=== PATIENT | female | born 1950 | race Caucasian/White ===

== ENCOUNTER 2019-09-22 13:22 | Inpatient (IN) | payer OTHER ==
--- NOTE | 2019-09-22 13:46 | PDOC ---
Rapid Medical Evaluation Time Seen by Provider: 09/22/19 13:41 Medical Evaluation: Allergies Allergy/AdvReac Type Severity Reaction Status Date / Time No Known Allergies Allergy Verified 09/22/19 13:40 09/22/19 13:41 Pt presents for swelling of the legs and shortness of breath for one week. She was seen by her PCP and was sent to the ER for further evaluation. Exam: 2+ pitting edema to the b/l lower extremities. Lungs CTAB Orders: labs, EKG, CXR Pt to proceed to the ER for further evaluation Discharge Disposition - Diagnosis Shortness of breath - Referrals - Patient Instructions - Post Discharge Activity
--- NOTE | 2019-09-22 15:32 | PDOC ---
History of Present Illness - General Chief Complaint: Edema Stated Complaint: SOB/LEG PAIN Time Seen by Provider: 09/22/19 13:41 History Source: Patient - History of Present Illness Initial Comments: 69F PMH MS, chronic venous insufficiency RLE sent in by PCP (Dr. Briceno) for 1 week of TRONCOSO and b/l LE edema. Edema has been a persistent issue. No sx at rest, only short of breath with activity. Denies chest pain, tightness, palpitations. Denies f/c, cough, sick contacts. Denies leg pain. Pt has no personal or family hx of VTE, no malignancies, recent surgeries, immobilization, OCP/hormone use. No cardiac hx. Poor medical f/u in recent years. Past History - Past Medical History Allergies/Adverse Reactions: Allergies Allergy/AdvReac Type Severity Reaction Status Date / Time No Known Allergies Allergy Verified 09/22/19 13:40 Home Medications: Ambulatory Orders Amantadine HCl [Amantadine] 100 mg PO HS 09/22/19 Amantadine HCl [Amantadine] 200 mg PO AM 09/22/19 Duloxetine HCl [Cymbalta] 30 mg PO DAILY 09/22/19 Solifenacin Succinate [Vesicare -] 10 mg PO DAILY 09/22/19 Glatiramer Acetate [Copaxone] 40 mg SQ 09/23/19 COPD: No Other medical history: MS - Surgical History Cholecystectomy: Yes - Psycho Social/Smoking Cessation Hx Smoking History: Never smoked Have you smoked in the past 12 months: No Information on smoking cessation initiated: No Hx Alcohol Use: No Drug/Substance Use Hx: No Review of Systems - Review of Systems Able to Perform ROS?: Yes Comments:: CONSTITUTIONAL: Denies F / C HEENT: Denies changes in vision / hearing, sore throat, rhinorrhea RESP: Endorses TRONCOSO. Denies cough CARD: Denies chest pain, palpitations GI: Denies N / V / D, abdominal pain. Endorses long standing constipation. : Denies dysuria SKIN: Denies rashes NEURO: Denies numbness, tingling, weakness MSK: Endorses edema of the legs *Physical Exam - Vital Signs Last Vital Signs Temp Pulse Resp BP Pulse Ox 97.5 F L 103 H 20 169/91 92 L 09/22/19 13:42 09/22/19 13:42 09/22/19 13:42 09/22/19 13:42 09/22/19 13:42 - Physical Exam GEN: Anxious, comfortable, NAD. AAOx3 HEENT: NC/AT. No facial asymmetry. Moist mucous membranes. Normal voice. Supple neck w/ FROM CV: S1/S2, RRR, no m/r/g LUNG: CTAB, no wheezes, crackles GI: Soft, ndnt, +BS, no guarding, no rebound. No masses. MSK: 2+ pitting edema of the b/l LE up to midshin. No calf TTP b/l. No streaking. +2 pulses b/l SKIN: Warm, dry, no rashes appreciated PSYCH: Very anxious, often off topic, but pleasant and easily redirectable. NEURO: Moving all extremities; LE weakness at baseline (2/2 MS) ED Treatment Course - LABORATORY CBC & Chemistry Diagram: 09/26/19 05:55 09/23/19 06:33 Medical Decision Making - Medical Decision Making 09/22/19 15:24 69F sent in by PCP for evaluation of 1 week b/l LE edema and TRONCOSO. 2+ pitting edema b/l, no calf TTP, lungs CTAB. Tachycardic, hypoxic. Anxious. DDx - VTE, CHF, ACS - CBC, CMP, Cardiac, BNP, D-Dimer - CXR - EKG - Duplex b/l EKG 1509 HR 98 AZ 140 QRS 100 QTc 464 NSR, right axis dev., q-waves III and aVF 09/22/19 16:35 chem reviewed trop neg BNP 4000 - admit f/u rest of labs 09/22/19 16:48 D-dimer elevated to 800s CTA 09/22/19 17:[address] Gentile regarding b/l PEs on CTA w/ possible right heart strain CTA PE Impression: Acute bilateral segmental embolism is seen as noted above. Possible right heart strain. Minimal to mild left lower lobe and bilateral lower lobe groundglass attenuation is seen which could be on the basis of acute embolism versus small airway disease. given findings on CTA - elevated BNP may be 2/2 right heart strain of PE or a separate CHF process. Pt is back in room started on NC supplemental O2 BP 150s/90s starting heparin admit tele Original EKG does show an s1q3t3. 09/22/19 18:04 No DVT on duplex 09/22/19 18:17 endorsed to MAR ADMITTED tele Discharge - Discharge Information Problems reviewed: Yes Clinical Impression/Diagnosis: Shortness of breath Pulmonary embolism Qualifiers: Pulmonary embolism type: unspecified Chronicity: acute Acute cor pulmonale presence: unspecified Qualified Code(s): I26.99 - Other pulmonary embolism without acute cor pulmonale Condition: Stable - Admission Yes - Follow up/Referral - Patient Discharge Instructions - Post Discharge Activity
--- NOTE | 2019-09-22 15:57 | PDOC ---
Attending Attestation - Resident Resident Name: Zacarias Martinez - ED Attending Attestation I have performed the following: I have examined & evaluated the patient, The case was reviewed & discussed with the resident, I agree w/resident's findings & plan - HPI HPI: 09/22/19 15:52 69-year-old female with history of MS, lost to PCP follow-up over the last few years while she was caring for her with end-stage cancer, now sent after first visit with Dr. Briceno for further evaluation of several months/1 year of progressive lower extremity swelling and now 1 week of dyspnea on exertion. Patient denies any chest pain, denies any calf pain, denies any fevers or chills or cough. No orthopnea but sleeps in a recliner at night, no smoking history, no weight loss or night sweats. - Physicial Exam PE: 09/22/19 15:53 Vitals as noted, O2 sat 94% on room air, slight tachycardia Pleasant woman seated comfortably in stretcher speaking full sentences in no acute distress No JVD Heart is regular slight tachycardia, lungs are clear without crackles or wheezes or focally decreased breath sounds Abdomen benign 3+ pitting edema bilaterally to the thighs with slight left calf tenderness, 2+ distal pulses - Medical Decision Making 09/22/19 15:54 69-year-old female sent after reinitiating PCP follow-up presenting with chronic lower extremity swelling and new dyspnea on exertion. Slight tachycardia and hypoxia but in no acute respiratory distress, bilateral leg swelling on exam. Presentation could be consistent with cardiac etiology, PE, metabolic/neoplastic process. Labs, EKG Chest x-ray. Check d-dimer Admission Heart Score/ECG Review #1 ECG reviewed & interpreted by me at: 15:09 General ECG Interpretation: Sinus Rhythm, Normal Rate (98), Normal Intervals ( qtc 464, s1qt3,), No acute ischemic changes Compared to previous ECG there are: No significant change (c/w office EKG from )
[2019-09-22 16:34] LABS: ALBUMIN 3.7 g/dl (3.4-5.0); BILIRUBIN,TOTAL 0.9 mg/dL (0.2-1); CALCIUM 9.1 mg/dL (8.5-10.1); CREATININE 0.9 mg/dL (0.55-1.3); N-TERMINAL BNP 4022.7 pg/ml (5-125); TOT PROT 6.8 g/dl (6.4-8.2)
[2019-09-22 16:54] LABS: EPI CELLS 1.7 /HPF (0-5/HPF); HYALINE CASTS 3 /lpf (0-8); URINE APPEARANCE CLEAR; URINE BACTERIA 16.2 /hpf (NEGATIVE); URINE BILIRUBIN NEGATIVE (NEGATIVE); URINE COLOR YELLOW; URINE GLUCOSE (UA) NEGATIVE (NEGATIVE); URINE KETONE NEGATIVE (NEGATIVE); URINE LEUK ESTERASE TRACE (NEGATIVE); URINE NITRITE NEGATIVE (NEGATIVE); URINE PROTEIN 1+ (NEGATIVE); URINE RBC 2 /hpf (0-4); URINE WBC 6 /hpf (0-5)
[2019-09-22 16:55] LABS: BASO % 1.3 % (0-2.0); EOS % 0.3 % (0-4.5); HEMATOCRIT 39.4 % (32.4-45.2); HEMOGLOBIN 11.6 GM/dL (10.7-15.3); LYMPH % 25.5 % (8-40); MCHC 29.3 g/dl (32.0-36.0); MEAN CELL VOLUME 64.3 fl (80-96); MEAN PLT VOLUME 8.9 fl (7.5-11.1); MONO % 7.6 % (3.8-10.2); NEUT % 65.3 % (42.8-82.8); PLATELET COUNT 178 K/MM3 (134-434); RBC 6.14 M/mm3 (3.60-5.2); RDW 20.8 % (11.6-15.6)
[2019-09-22 16:57] LABS: MCH 18.8 pg (25.7-33.7)
[2019-09-22] MEDS ORDERED: HEPARIN NA (PORCINE) 5,000 UNITS/ML 1ML VIAL IVPUSH PRN ×2 (17:57)
[2019-09-22] MEDS ORDERED: HEPARIN INFUSION - 25,000 UNITS/500 ML INFUS.BAG IVPB ONE (18:25)
[2019-09-22] MEDS ORDERED: HEPARIN NA (PORCINE) 5,000 UNITS/ML 1ML VIAL ONE (18:25)
[2019-09-22 18:36] LABS: ANISOCYTOSIS 2+; MACROCYTOSIS 1+; OVALOCYTE 1+; PLATELET ESTIMATE ADEQUATE
[2019-09-22] MEDS: HEPARIN INFUSION - 25,000 UNITS/500 ML INFUS.BAG IVPB SCH (18:38)
--- NOTE | 2019-09-22 20:46 | PN ---
Teaching Attending Note Name of Resident: Huma Allen ATTENDING PHYSICIAN STATEMENT I saw and evaluated the patient. I reviewed the resident's note and discussed the case with the resident. I agree with the resident's findings and plan as documented. SUBJECTIVE: 61-year-old woman with multiple sclerosis on Copaxone, chronic venous insufficiency sent in by her PCP for 1 week of dyspnea on exertion and bilateral lower extremity edema. Patient denies any chest pain, lesions, headaches or recent travels. There is no personal history of DVTs and no family history of DVTs reported. Non-smoker, no OCP or hormone use. OBJECTIVE: Last Vital Signs Temp Pulse Resp BP Pulse Ox 97.5 F L 109 H 22 H 155/96 94 L 09/22/19 13:42 09/22/19 17:48 09/22/19 17:48 09/22/19 17:48 09/22/19 17:48 Physical exam showed a well-built woman. Not in any distress, able to articulate without any issues. Lungs are clear to auscultation, heart was S1, S2, regular rate and rhythm. No murmurs appreciated. Abdomen was soft, obese. Lower extremities are remarkable for bilateral pitting edema 2+ in lower extremities bilaterally, 2+ DP pulses bilaterally Abnormal Lab Results 09/22/19 09/22/19 09/22/19 15:30 15:30 15:30 RBC 6.14 H MCV 64.3 L MCH 18.8 L MCHC 29.3 L RDW 20.8 H D-Dimer Carbon Dioxide 20 L BUN 20.0 H Creatine Kinase 299 H CK-MB (CK-2) 6.8 H B-Natriuretic Peptide 4022.7 H Urine Protein 09/22/19 09/22/19 15:30 15:30 RBC MCV MCH MCHC RDW D-Dimer 874 H Carbon Dioxide BUN Creatine Kinase CK-MB (CK-2) B-Natriuretic Peptide Urine Protein 1+ H Imaging studies reviewed. Duplex ultrasound of bilateral legs showed no DVT involving either leg. CTA showed acute bilateral segmental embolism. Possible right heart strain. Minimal to mild left lower lobe and bilateral lower lobe groundglass attenuation. ASSESSMENT AND PLAN: 69-year-old woman with acute bilateral pulmonary embolism as described in imaging above. Possible right heart strain seen on CT of chest however patient is otherwise hemodynamically stable for transfer to telemetry. Started on anticoagulation with heparin drip.No proceeding anti-inflammatory states other than possible multiple sclerosis identified.Lower extremity Doppler was negative for DVTs. Admit to equestrian trainer vital signs closely Monitor oxygen saturation closely Continue with heparin drip Transthoracic echo Patient might benefit from outpatient hematology hypercoagulable work-up DVT prophylaxis is covered with heparin drip
--- NOTE | 2019-09-22 21:19 | HP ---
CHIEF COMPLAINT: dyspnea, LE edema PCP: Dr. Briceno HISTORY OF PRESENT ILLNESS: 69 y.o. M PMH multiple sclerosis & chronic venous insufficiency presenting from PCP's office for dyspnea on exertion and worsening LE edema. The patient state the dyspnea has been getting progressively worse over the past 2-3 days. The SOB only occurs on exertion and not at rest. She denies associated chest pain. The patient endorses a baseline LE edema but it has been progressively worsening over the past 7-8 days. She is mostly sedentary but is able to walk with a cane. Denies recent travel. Of note, the patient he sees Dr. Garces ( neurology) for her multiple sclerosis who recently increased her Copaxone dose. ER course was notable for: (1) D-dimer: 874. (2) CTA: b/l segmental embolism, poss R heart strain (3) Negative LE DVT study Recent Travel: denies PAST MEDICAL HISTORY: as per hpi PAST SURGICAL HISTORY: R elbow surgery w/ 2 screws placed Social History: lives alone. recently this past year. Smoking: denies Alcohol:denies Drugs: denies Family History: rheumatological disease in mother Allergies No Known Allergies Allergy (Verified 09/22/19 13:40) HOME MEDICATIONS: Home Medications Medication Instructions Recorded Amantadine HCl [Amantadine] 100 mg PO HS 09/22/19 Amantadine HCl [Amantadine] 200 mg PO AM 09/22/19 Duloxetine HCl [Cymbalta] 30 mg PO DAILY 09/22/19 Solifenacin Succinate [Vesicare -] 10 mg PO DAILY 09/22/19 REVIEW OF SYSTEMS CONSTITUTIONAL: Absent: fever, chills, diaphoresis, generalized weakness, malaise, loss of appetite, weight change HEENT: Absent: rhinorrhea, nasal congestion, throat pain, throat swelling, difficulty swallowing, mouth swelling, ear pain, eye pain, visual changes CARDIOVASCULAR: peripheral edema Absent: chest pain, syncope, palpitations, irregular heart rate, lightheadedness RESPIRATORY: dyspnea with exertion Absent: cough, shortness of breath, orthopnea, wheezing, stridor, hemoptysis GASTROINTESTINAL: Absent: abdominal pain, abdominal distension, nausea, vomiting, diarrhea, constipation, melena, hematochezia GENITOURINARY: Absent: dysuria, frequency, urgency, hesitancy, hematuria, flank pain, genital pain MUSCULOSKELETAL: Absent: myalgia, arthralgia, joint swelling, back pain, neck pain SKIN: Absent: rash, itching, pallor HEMATOLOGIC/IMMUNOLOGIC: Absent: easy bleeding, easy bruising, lymphadenopathy, frequent infections ENDOCRINE: Absent: unexplained weight gain, unexplained weight loss, heat intolerance, cold intolerance NEUROLOGIC: Absent: headache, focal weakness or paresthesias, dizziness, unsteady gait, seizure, mental status changes, bladder or bowel incontinence PSYCHIATRIC: Absent: anxiety, depression, suicidal or homicidal ideation, hallucinations. PHYSICAL EXAMINATION Vital Signs - 24 hr 09/22/19 09/22/19 09/22/19 13:42 15:54 17:48 Temperature 97.5 F L Pulse Rate 103 H Pulse Rate [ 98 H 109 H Apical] Respiratory 20 18 22 H Rate Blood Pressure 169/91 Blood Pressure 166/68 155/96 [Left Arm] O2 Sat by Pulse 92 L 94 L Oximetry (%) GENERAL: Awake, alert, and fully oriented, in no acute distress. HEENT: NCAT. PERRLA. Conjunctiva clear. MMM. No JVD LUNGS: Breath sounds diminished @ b/l bases. No wheezes, and no crackles. No accessory muscle use. HEART: Regular rate and rhythm, normal S1 and S2 without murmur, rub or gallop. ABDOMEN: Soft, nontender, not distended, normoactive bowel sounds. EXTREMITIES: 2+ pitting edema b/l LE. 2+ pulses, warm, well-perfused. NEUROLOGICAL: Cranial nerves II-XII intact. Normal speech. Normal gait. PSYCHIATRIC: Cooperative. Good eye contact. Appropriate mood and affect. SKIN: Warm, dry, normal turgor, no rashes or lesions noted, normal capillary refill. Laboratory Results - last 24 hr Laboratory Last Values WBC 6.0 K/mm3 (4.0-10.0) 09/22/19 15:30 RBC 6.14 M/mm3 (3.60-5.2) H 09/22/19 15:30 Hgb 11.6 GM/dL (10.7-15.3) 09/22/19 15:30 Hct 39.4 % (32.4-45.2) 09/22/19 15:30 MCV 64.3 fl (80-96) L 09/22/19 15:30 MCH 18.8 pg (25.7-33.7) L 09/22/19 15:30 MCHC 29.3 g/dl (32.0-36.0) L 09/22/19 15:30 RDW 20.8 % (11.6-15.6) H 09/22/19 15:30 Plt Count 178 K/MM3 (134-434) 09/22/19 15:30 MPV 8.9 fl (7.5-11.1) 09/22/19 15:30 Absolute Neuts (auto) 3.9 K/mm3 (1.5-8.0) 09/22/19 15:30 Neutrophils % 65.3 % (42.8-82.8) 09/22/19 15: Lymphocytes % 25.5 % (8-40) 09/22/19 15: Monocytes % 7.6 % (3.8-10.2) 09/22/19 15: Eosinophils % 0.3 % (0-4.5) 09/22/19 15: Basophils % 1.3 % (0-2.0) 09/22/19 15: Nucleated RBC % 0 % (0-0) 09/22/19 15:30 Hypochromia 3+ 09/22/19 15:30 Platelet Estimate Adequate 09/22/19 15: Platelet Comment Giant platelets 09/22/19 15:30 Polychromasia 1+ 09/22/19 15:30 Poikilocytosis 1+ 09/22/19 15:30 Anisocytosis 2+ 09/22/19 15:30 Microcytosis 2+ 09/22/19 15:30 Macrocytosis 1+ 09/22/19 15:30 Ovalocytes 1+ 09/22/19 15:30 Liberty Cells 1+ 09/22/19 15:30 D-Dimer 874 ng/ml (0-500) H 09/22/19 15:30 Sodium 139 mmol/L (136-145) 09/22/19 15:30 Potassium 4.0 mmol/L (3.5-5.1) 09/22/19 15:30 Chloride 107 mmol/L (98-107) 09/22/19 15:30 Carbon Dioxide 20 mmol/L (21-32) L 09/22/19 15:30 Anion Gap 12 MMOL/L (8-16) 09/22/19 15:30 BUN 20.0 mg/dL (7-18) H 09/22/19 15:30 Creatinine 0.9 mg/dL (0.55-1.3) 09/22/19 15:30 Est GFR (CKD-EPI)AfAm 76.14 09/22/19 15:30 Est GFR (CKD-EPI)NonAf 65.70 09/22/19 15:30 Random Glucose 99 mg/dL (74-106) 09/22/19 15:30 Calcium 9.1 mg/dL (8.5-10.1) 09/22/19 15:30 Total Bilirubin 0.9 mg/dL (0.2-1) 09/22/19 15:30 AST 18 U/L (15-37) 09/22/19 15:30 ALT 27 U/L (13-61) 09/22/19 15:30 Alkaline Phosphatase 91 U/L (45-117) 09/22/19 15:30 Creatine Kinase 299 U/L (26-192) H 09/22/19 15:30 Creatine Kinase Index 2.2 % (0.0-5.0) 09/22/19 15:30 CK-MB (CK-2) 6.8 ng/mL (0.5-3.6) H 09/22/19 15:30 Troponin I 0.04 ng/ml (0.00-0.05) 09/22/19 15:30 B-Natriuretic Peptide 4022.7 pg/ml (5-125) H 09/22/19 15:30 Total Protein 6.8 g/dl (6.4-8.2) 09/22/19 15:30 Albumin 3.7 g/dl (3.4-5.0) 09/22/19 15:30 Urine Color Yellow 09/22/19 15:30 Urine Appearance Clear 09/22/19 15:30 Urine pH 6.0 (5.0-8.0) 09/22/19 15:30 Ur Specific [place] 1.013 (1.010-1.035) 09/22/19 15:30 Urine Protein 1+ (NEGATIVE) H 09/22/19 15:30 Urine Glucose (UA) Negative (NEGATIVE) 09/22/19 15:30 Urine Ketones Negative (NEGATIVE) 09/22/19 15:30 Urine Blood Negative (NEGATIVE) 09/22/19 15:30 Urine Nitrite Negative (NEGATIVE) 09/22/19 15:30 Urine Bilirubin Negative (NEGATIVE) 09/22/19 15:30 Urine Urobilinogen 1.0 mg/dL (0.2-1.0) 09/22/19 15:30 Ur Leukocyte Esterase Trace (NEGATIVE) 09/22/19 15:30 Urine WBC (Auto) 6 /hpf (0-5) 09/22/19 15:30 Urine RBC (Auto) 2 /hpf (0-4) 09/22/19 15:30 Urine Casts (Auto) 3 /lpf (0-8) 09/22/19 15:30 U Epithel Cells (Auto) 1.7 /HPF (0-5/HPF) 09/22/19 15:30 Urine Bacteria (Auto) 16.2 /hpf (NEGATIVE) 09/22/19 15:30 Imaging: Chest CTA: Acute bilateral segmental embolism is seen as noted above. Possible right heart strain. Minimal to mild left lower lobe and bilateral lower lobe groundglass attenuation is seen which could be on the basis of acute embolism versus small airway disease. ASSESSMENT/PLAN: 69 y.o. M PMH multiple sclerosis & chronic venous insufficiency presenting for bilateral pulmonary emboli. #Pulmonary emboli -confirmed b/l PE on chest CTA -LE Duplex negative for DVT -D dimer 874 -continue oxygen therapy via nasal cannula, saturating well on 2L -started on heparin drip -seems unprovoked, new MS medication regimen may have some contributory effect. Will need outpatient anticoagulation on discharge -will need heme/onc follow up on discharge for hypercoagulability workup #R heart strain -seen on chest CTA -EKG shows NSR, qtc 464 NSR. Q waves lead III, 1 inverted T wve lead III, s- wave lead I -- s1q3t3 -f/u echo -patient denies chest pain -trop negative x1 -monitor on telemetry #Multiple sclerosis -continue home meds: amantadine 200mg AM/100mg HS, duloxetine 30mg/d, vesicare 10mg/d -f/u new medication regimen from Dr. Garces, neurologist #DVT PPX -on heparin drip #FEN -no standing fluids -trend lytes replete prn -Na controlled diet #Dispo tele Visit type - Emergency Visit Emergency Visit: Yes ED Registration Date: 09/22/19 Care time: The patient presented to the Emergency Department on the above date and was hospitalized for further evaluation of their emergent condition. - New Patient This patient is new to me today: Yes Date on this admission: 09/23/19 - Critical Care Critical Care patient: No ATTENDING PHYSICIAN STATEMENT I saw and evaluated the patient. I reviewed the resident's note and discussed the case with the resident. I agree with the resident's findings and plan as documented. SUBJECTIVE: OBJECTIVE: ASSESSMENT AND PLAN:
[2019-09-22 23:08] LABS: ARTERIAL BLD GAS O2 SATURATION 85.2 % (95-98); ARTERIAL BLOOD GAS BASE EXCESS 0.2 meq/l (-2-2); ARTERIAL BLOOD GAS PCO2 32.7 mmHg (35-45); ARTERIAL BLOOD GAS PO2 54.4 mmHg (80-100); ARTERIAL BLOOD GAS pH 7.46 (7.35-7.45)
[2019-09-22 23:09] LABS: ALLENS TEST POSITIVE
[2019-09-23] MEDS: AMANTADINE HCL 100 MG TABLET PO SCH ×2 (06:12→22:46)
[2019-09-23 07:29] LABS: BASO % 1.3 % (0-2.0); EOS % 1.9 % (0-4.5); HEMATOCRIT 38.5 % (32.4-45.2); HEMOGLOBIN 11.4 GM/dL (10.7-15.3); LYMPH % 30.5 % (8-40); MCHC 29.7 g/dl (32.0-36.0); MEAN CELL VOLUME 63.4 fl (80-96); NEUT % 56.3 % (42.8-82.8); PLATELET COUNT 181 K/MM3 (134-434); RBC 6.07 M/mm3 (3.60-5.2); RDW 20.6 % (11.6-15.6); WHITE BLOOD COUNT 6.3 K/mm3 (4.0-10.0)
[2019-09-23 07:57] LABS: MCH 18.8 pg (25.7-33.7)
[2019-09-23 07:59] LABS: ALBUMIN 3.5 g/dl (3.4-5.0); BLOOD UREA NITROGEN 16.4 mg/dL (7-18); CALCIUM 8.9 mg/dL (8.5-10.1); CREATININE 0.9 mg/dL (0.55-1.3); POTASSIUM 3.4 mmol/L (3.5-5.1); TOT PROT 6.4 g/dl (6.4-8.2)
--- NOTE | 2019-09-23 08:31 | PN ---
Progress Note, Physician Chief Complaint: states SOB is better today with O2. Legs remain edematous as her report. No able to ambulate short distances with dyspnea History of Present Illness: 69 y.o. M PMH multiple sclerosis & chronic venous insufficiency presenting for bilateral pulmonary emboli. - Current Medication List Current Medications: Active Medications Amantadine HCl (Symmetrel -) 100 mg PO HS FRANK Amantadine HCl (Symmetrel -) 200 mg PO AM FRANK Last Admin: 09/23/19 06:12 Dose: 200 mg Duloxetine HCl (Cymbalta -) 30 mg PO DAILY [facility] Heparin Sodium (Porcine) (Heparin -) 1,000 unit IVPUSH PRN PRN PRN Reason: Heparin Heparin Sodium (Porcine) (Heparin -) 5,000 unit IVPUSH PRN PRN PRN Reason: Heparin Last Admin: 09/22/19 18:38 Dose: 5,000 unit Heparin Sodium/Dextrose (Heparin Infusion -) 25,000 units in 500 mls @ 20 mls/ hr IVPB TITR FRANK; Protocol Last Titration: 09/23/19 02:30 Dose: 700 units/hr, 14 mls/hr Solifenacin (Vesicare -) 10 mg PO DAILY [facility] - Objective Vital Signs: Vital Signs Temperature 97.9 F 09/23/19 06:10 Pulse Rate 96 H 09/23/19 06:10 Respiratory Rate 18 09/23/19 06:10 Blood Pressure 165/94 09/23/19 06:10 O2 Sat by Pulse Oximetry (%) 99 09/23/19 05:11 Constitutional: Yes: Well Nourished, No Distress Eyes: Yes: WNL, Conjunctiva Clear, EOM Intact HENT: Yes: WNL, Atraumatic, Normocephalic Neck: Yes: WNL, Supple, Trachea Midline Cardiovascular: Yes: Regular Rate and Rhythm, Tachycardia (mild 90s) Respiratory: Yes: Diminished (at bases), On Nasal O2 (2L), SOB on Exertion Gastrointestinal: Yes: WNL, Normal Bowel Sounds ...Rectal Exam: Yes: Deferred Genitourinary: Yes: WNL Breast(s): Yes: WNL Musculoskeletal: Yes: WNL Extremities: Yes: WNL Edema: No Edema: LLE: 2+, RLE: 2+ Peripheral Pulses WNL: No Peripheral Pulses: Left Radial: 2+, Right Radial: 2+, Left Doralis Pedis: 1+, Right Dorsalis Pedis: 1+, Left Femoral: 2+, Right Femoral: 2+ Integumentary: Yes: Petechiae (to calves BL) Neurological: Yes: WNL, Alert, Oriented ...Motor Strength: WNL (generalized weakness) Labs: CBC, BMP 09/23/19 06:33 09/23/19 06:33 - ....Imaging Cat Scan: Report Reviewed (b/l segmental embolism, poss R heart strain) Problem List - Problems (1) Prophylactic measure Assessment/Plan: FEN Fluids: adequate PO intake Electrolytes: monitor & replete as needed Nutrition: low Na diet DVT high risk heparin gtt as per protocol Dispo Maintain as inpatient on tele full code discharge planning Code(s): Z29.9 - ENCOUNTER FOR PROPHYLACTIC MEASURES, UNSPECIFIED (2) Chronic venous insufficiency of lower extremity Assessment/Plan: chronic venous sufficiency with LE edmea worsening LE edema over past week Dopplers of LE done, negative Code(s): I87.2 - VENOUS INSUFFICIENCY (CHRONIC) (PERIPHERAL) (3) Multiple sclerosis Assessment/Plan: Follows with neurologist for MS as per pt MS has been stable recently, ambulates with cane PT requested fall precautions Code(s): G35 - MULTIPLE SCLEROSIS (4) Pulmonary embolism Assessment/Plan: BL segmental PEs started on Heparin gtt as per protocol PE appears unprovoked will need heme w/u as outpatient Right heart strain with severe pul htn will consult cardiology supplemental O2 to mainatin SPO2 >88% Code(s): I26.99 - OTHER PULMONARY EMBOLISM WITHOUT ACUTE COR PULMONALE Qualifiers: Pulmonary embolism type: unspecified Chronicity: acute Acute cor pulmonale presence: unspecified Qualified Code(s): I26.99 - Other pulmonary embolism without acute cor pulmonale (5) Shortness of breath Assessment/Plan: resolving with O2 Code(s): R06.02 - SHORTNESS OF BREATH (6) Pulmonary hypertension, moderate to severe Assessment/Plan: severe PHtn seen on TTE trops neg cardiology consulted Code(s): I27.20 - PULMONARY HYPERTENSION, UNSPECIFIED Visit type - Emergency Visit Emergency Visit: Yes ED Registration Date: 09/22/19 Care time: The patient presented to the Emergency Department on the above date and was hospitalized for further evaluation of their emergent condition. - New Patient This patient is new to me today: Yes Date on this admission: 09/23/19 - Critical Care Critical Care patient: No - Discharge Referral Referred to [facility] Med [facility].: No
[2019-09-23] MEDS ORDERED: POTASSIUM CHLORIDE TABS 20 MEQ TABLET.ER (FP) PO ONE ×2 (08:45→11:02)
[2019-09-23] MEDS ORDERED: PATIENT'S OWN MEDICATION (NON-FORMULARY) (Solifenacin Succinate [Vesicare -] 10 MG) PO SCH (10:00)
[2019-09-23] MEDS: SOLIFENACIN SUCCINATE 5 MG TAB PO SCH ×2 (10:21→10:32)
[2019-09-23] MEDS: DULoxetine HCL 30 MG CAPSULE.DR PO SCH (10:21)
--- NOTE | 2019-09-23 10:43 | EKG ---
Test Reason : Blood Pressure : / mmHG Vent. Rate : 098 BPM Atrial Rate : 098 BPM P-R Int : 140 ms QRS Dur : 100 ms QT Int : 364 ms P-R-T Axes : 069 106 013 degrees QTc Int : 464 ms NORMAL SINUS RHYTHM RIGHTWARD AXIS CANNOT RULE OUT INFERIOR INFARCT , AGE UNDETERMINED CANNOT RULE OUT ANTERIOR INFARCT , AGE UNDETERMINED ABNORMAL ECG WHEN COMPARED WITH ECG OF 14-JAN-2001 17:13, QRS AXIS SHIFTED RIGHT MINIMAL CRITERIA FOR INFERIOR INFARCT ARE NOW PRESENT T WAVE INVERSION MORE EVIDENT IN INFERIOR LEADS QT HAS LENGTHENED Confirmed by Mychal Torres MD ([id number]) on 09/23/2019 10:43:34 AM Referred By: Confirmed By:Mychal Torres MD
--- NOTE | 2019-09-23 13:42 | ECHO ---
Version: 1 Name: SO MITCHELL Exam: Adult Echocardiogram Study Date: 09/23/2019, 10:56 AM Age: 69 Years MMode/2D Measurements & Calculations IVSd: 1.25 cm LVIDs: 2.50 cm LVIDd: 4.1 cm LVPWd: 1.04 cm ACS: 1.77 cm Ao root diam: 3.0 cm LVOT diam: 1.96 cm LA dimension: 3.2 cm Doppler Measurements & Calculations MV E max giovanni: 40.0 cm/sec Med E/e': 8.7 MV A max giovanni: 82.4 cm/sec Med Peak E' Giovanni: 4.6 cm/sec MV E/A: 0.49 Lat E/e': 7.0 Lat Peak E' Giovanni: 5.8 cm/sec MR max P.5 mmHg Ao max P.1 mmHg HILDA(I,D): 2.00 cm Ao mean P.7 mmHg LV V1 mean: 54.5 cm/sec Ao V2 max: 112.7 cm/sec LV V1 mean P.39 mmHg PI end-d giovanni: 181.9 cm/sec TR max giovanni: 370.6 cm/sec TR max P.1 mmHg Procedure A complete two-dimensional transthoracic echocardiogram was performed (2D, M-mode, Doppler and color flow Doppler). Left Ventricle Flattened interventricualr septum due to RV pressure overload. The left ventricular size, thickness and function are normal. Ejection Fraction = 55%. Right Ventricle The right ventricle is moderately dilated. The right ventricular systolic function is moderately red uced. Atria The left atrial size is normal. The right atrium is severely dilated. Mitral Valve The mitral valve is normal in structure and function. There is no mitral valve stenosis. There is mi ld mitral regurgitation. Tricuspid Valve The tricuspid valve is normal in structure and function. There is moderate tricuspid regurgitation. Assuming the RA pressure is 20 mmHg. There is severe pulmonary hypertension. Right ventricular systolic press ure is elevated at 94 mmhg. Aortic Valve The aortic valve is normal in structure and function. No hemodynamically significant valvular aortic stenosis. No aortic regurgitation is present. Pulmonic Valve The pulmonic valve is normal in structure and function. Mild pulmonic valvular regurgitation. Great Vessels The aortic root is normal size. Pericardium/Pleura There is no pericardial effusion. Summary Statements Flattened interventricualr septum due to RV pressure overload. The left ventricular size, thickness and function are normal The right ventricle is moderately dilated. The right ventricular systolic function is moderately red uced. There is moderate tricuspid regurgitation. There is severe pulmonary hypertension. Kavin Mejia 09/23/2019, 1:41 PM Ordering Physician: Huma Allen Referring Physician: HUMA ALLEN Performed By: Danita Finley
[2019-09-23 16:06] VITALS: BMI 32.3
[2019-09-23] MEDS ORDERED: BISACODYL 5 MG TABLET.DR (FP) PO PRN (17:42)
[2019-09-23] MEDS ORDERED: MAGNESIUM CITRATE 300 ML BOTTLE PO PRN (17:43)
--- NOTE | 2019-09-23 17:58 | CON.CARD ---
Consult Consult Specialty:: Cardiology Reason for Consultation:: PE's. Right heart strain - History of Present Illness Chief Complaint: TRONCOSO History of Present Illness: This is a 69 year old female with a PMH of MS and chronic venous insufficiency. She presents now from her PCP's office with TRONCOSO and worsening LE edema. The patient state the dyspnea has been getting progressively worse over the past 2- [address] scan shows bilateral segmental PE's. LE Doppler negative for a DVT Echocardiogram 09/23/2019: RV pressure overload RV is moderately dilated Severe pulmonary HTN - Alcohol/Substance Use Hx Alcohol Use: No - Smoking History Smoking history: Never smoked Have you smoked in the past 12 months: No Home Medications - Allergies Allergies/Adverse Reactions: Allergies Allergy/AdvReac Type Severity Reaction Status Date / Time No Known Allergies Allergy Verified 09/22/19 13:40 - Home Medications Home Medications: Ambulatory Orders Amantadine HCl [Amantadine] 100 mg PO HS 09/22/19 Amantadine HCl [Amantadine] 200 mg PO AM 09/22/19 Duloxetine HCl [Cymbalta] 30 mg PO DAILY 09/22/19 Solifenacin Succinate [Vesicare -] 10 mg PO DAILY 09/22/19 Glatiramer Acetate [Copaxone] 40 mg SQ 09/23/19 Vital Signs: Vital Signs Temperature 98.0 F 09/23/19 15:52 Pulse Rate 94 H 09/23/19 15:52 Respiratory Rate 16 09/23/19 15:52 Blood Pressure 155/89 09/23/19 15:52 O2 Sat by Pulse Oximetry (%) 95 09/23/19 15:52 Constitutional: Yes: No Distress Eyes: Yes: WNL, Occular Prosthesis Neck: Yes: WNL Respiratory: Yes: CTA Bilaterally Gastrointestinal: Yes: Soft Cardiovascular: Yes: Regular Rate and Rhythm Heart Sounds: Yes: S1, S2 Edema: LLE: Trace, RLE: Trace Neurological: Yes: Alert, Oriented - Other Data Labs, Other Data: CBC, BMP 09/23/19 06:33 09/23/19 06:33 Assessment/Plan 69 year old female with a PMH of MS and chronic venous insufficiency. She presents now from her PCP's office with TRONCOSO and worsening LE edema. The patient state the dyspnea has been getting progressively worse over the past 2-[address] scan shows bilateral segmental PE's. 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
[2019-09-23] MEDS: HEPARIN INFUSION - 25,000 UNITS/500 ML INFUS.BAG IVPB SCH (18:24)
[2019-09-23] MEDS ORDERED: PT OWN MED DRAWER 7, Y5N ONE (21:22)
[2019-09-23] MEDS: DOCUSATE SODIUM 100 MG CAPSULE (FP) PO SCH (22:46)
[2019-09-24] MEDS: AMANTADINE HCL 100 MG TABLET PO SCH ×2 (06:46→21:41)
[2019-09-24 07:00] LABS: HEMATOCRIT 35.2 % (32.4-45.2); HEMOGLOBIN 10.6 GM/dL (10.7-15.3); MCHC 30.1 g/dl (32.0-36.0); MEAN CELL VOLUME 62.2 fl (80-96); MEAN PLT VOLUME 8.7 fl (7.5-11.1); PLATELET COUNT 181 K/MM3 (134-434); RBC 5.66 M/mm3 (3.60-5.2); RDW 20.6 % (11.6-15.6); WHITE BLOOD COUNT 5.4 K/mm3 (4.0-10.0)
--- NOTE | 2019-09-24 07:41 | PN ---
Progress Note, Physician Chief Complaint: SOB is much improved. States leg edema is less today. History of Present Illness: 69 y.o. M PMH multiple sclerosis & chronic venous insufficiency presenting for bilateral pulmonary emboli. - Current Medication List Current Medications: Active Medications Amantadine HCl (Symmetrel -) 100 mg PO HS [facility] Last Admin: 09/23/19 22:46 Dose: 100 mg Amantadine HCl (Symmetrel -) 200 mg PO AM [facility] Last Admin: 09/24/19 06:46 Dose: 200 mg Bisacodyl (Dulcolax -) 5 mg PO DAILY PRN PRN Reason: CONSTIPATION Last Admin: 09/23/19 18:24 Dose: 5 mg Docusate Sodium (Colace -) 300 mg PO HS [facility] Last Admin: 09/23/19 22:46 Dose: 300 mg Duloxetine HCl (Cymbalta -) 30 mg PO DAILY [facility] Last Admin: 09/23/19 10:21 Dose: 30 mg Heparin Sodium (Porcine) (Heparin -) 1,000 unit IVPUSH PRN PRN PRN Reason: Heparin Heparin Sodium (Porcine) (Heparin -) 5,000 unit IVPUSH PRN PRN PRN Reason: Heparin Last Admin: 09/22/19 18:38 Dose: 5,000 unit Heparin Sodium/Dextrose (Heparin Infusion -) 25,000 units in 500 mls @ 20 mls/ hr IVPB TITR [facility]; Protocol Last Admin: 09/23/19 18:24 Dose: 800 units/hr, 16 mls/hr Magnesium Citrate (Citroma -) 300 ml PO Q48H PRN PRN Reason: CONSTIPATION Polyethylene Glycol (Miralax (For Daily Use) -) 17 gm PO DAILY [facility] Solifenacin (Vesicare -) 10 mg PO DAILY [facility] Last Admin: 09/23/19 10:32 Dose: Not Given - Objective Vital Signs: Vital Signs Temperature 98.5 F 09/24/19 06:00 Pulse Rate 95 H 09/24/19 06:00 Respiratory Rate 20 09/24/19 06:00 Blood Pressure 125/89 09/24/19 06:00 O2 Sat by Pulse Oximetry (%) 95 09/23/19 21:00 Additional Findings/Remarks: Constitutional: Yes: Well Nourished, No Distress Eyes: Yes: WNL, Conjunctiva Clear, EOM Intact HENT: Yes: WNL, Atraumatic, Normocephalic Neck: Yes: WNL, Supple, Trachea Midline Cardiovascular: Yes: Regular Rate and Rhythm, Tachycardia (mild 90s) Respiratory: Yes: Diminished (at bases), On Nasal O2 (2L), SOB on Exertion Gastrointestinal: Yes: WNL, Normal Bowel Sounds ...Rectal Exam: Yes: Deferred Genitourinary: Yes: WNL Breast(s): Yes: WNL Musculoskeletal: Yes: WNL Extremities: Yes: WNL Edema: No Edema: LLE: 2+, RLE: 2+ Peripheral Pulses WNL: No Peripheral Pulses: Left Radial: 2+, Right Radial: 2+, Left Doralis Pedis: 1+, Right Dorsalis Pedis: 1+, Left Femoral: 2+, Right Femoral: 2+ Integumentary: Yes: Petechiae (to calves BL) Neurological: Yes: WNL, Alert, Oriented ...Motor Strength: WNL (generalized weakness) Labs: CBC, BMP 09/23/19 06:33 - ....Imaging Cat Scan: Report Reviewed ( CTA:b/l segmental embolism, poss R heart strain)) Problem List - Problems (1) Prophylactic measure Assessment/Plan: FEN Fluids: adequate PO intake Electrolytes: monitor & replete as needed Nutrition: low Na diet DVT high risk heparin gtt as per protocol Dispo Maintain as inpatient on tele full code discharge planning Code(s): Z29.9 - ENCOUNTER FOR PROPHYLACTIC MEASURES, UNSPECIFIED (2) Chronic venous insufficiency of lower extremity Assessment/Plan: chronic venous sufficiency with LE edmea worsening LE edema over past week Dopplers of LE done, negative c/w lasix 40mg bid Code(s): I87.2 - VENOUS INSUFFICIENCY (CHRONIC) (PERIPHERAL) (3) Multiple sclerosis Assessment/Plan: Follows with neurologist for MS as per pt MS has been stable recently, ambulates with cane PT following fall precautions Code(s): G35 - MULTIPLE SCLEROSIS (4) Pulmonary embolism Assessment/Plan: BL segmental PEs started on Heparin gtt as per protocol PE appears unprovoked heme consulation requested, hypercoagulation w/u labs sent Right heart strain with severe pul htn Appreciate cardiology consultation will need half-way anticoagulation with NOAC supplemental O2 to mainatin SPO2 >88% will try to wean off O2 Code(s): I26.99 - OTHER PULMONARY EMBOLISM WITHOUT ACUTE COR PULMONALE Qualifiers: Pulmonary embolism type: unspecified Chronicity: acute Acute cor pulmonale presence: unspecified Qualified Code(s): I26.99 - Other pulmonary embolism without acute cor pulmonale (5) Shortness of breath Assessment/Plan: dysnpea persists with ambulation/exertion resolving with O2 Code(s): R06.02 - SHORTNESS OF BREATH (6) Pulmonary hypertension, moderate to severe Assessment/Plan: severe PHtn seen on TTE trops neg cardiology following Code(s): I27.20 - PULMONARY HYPERTENSION, UNSPECIFIED Visit type - Emergency Visit Emergency Visit: Yes ED Registration Date: 09/22/19 Care time: The patient presented to the Emergency Department on the above date and was hospitalized for further evaluation of their emergent condition. - New Patient This patient is new to me today: No - Critical Care Critical Care patient: No - Discharge Referral Referred to [facility] Med [facility] No
[2019-09-24 08:12] LABS: MCH 18.7 pg (25.7-33.7)
[2019-09-24] MEDS: DULoxetine HCL 30 MG CAPSULE.DR PO SCH (10:04)
[2019-09-24] MEDS: SOLIFENACIN SUCCINATE 5 MG TAB PO SCH (10:04)
[2019-09-24] MEDS: POLYETHYLENE GLYCOL 3350 119 GM BTL PO SCH (10:05)
[2019-09-24] MEDS: FUROSEMIDE 40 MG TABLET (FP) PO SCH (15:15)
--- NOTE | 2019-09-24 16:14 | PN ---
Progress Note, Physician Chief Complaint: resting comfortably History of Present Illness: This is a 69 year old female with a PMH of MS and chronic venous insufficiency. She presents now from her PCP's office with TRONCOSO and worsening LE edema. The patient state the dyspnea has been getting progressively worse over the past 2- [address] scan shows bilateral segmental PE's. LE Doppler negative for a DVT Echocardiogram 09/23/2019: RV pressure overload RV is moderately dilated Severe pulmonary HTN Symptomatically improving - Current Medication List Current Medications: Active Medications Amantadine HCl (Symmetrel -) 100 mg PO HS [facility] Last Admin: 09/23/19 22:46 Dose: 100 mg Amantadine HCl (Symmetrel -) 200 mg PO AM [facility] Last Admin: 09/24/19 06:46 Dose: 200 mg Bisacodyl (Dulcolax -) 5 mg PO DAILY PRN PRN Reason: CONSTIPATION Last Admin: 09/23/19 18:24 Dose: 5 mg Docusate Sodium (Colace -) 300 mg PO HS [facility] Last Admin: 09/23/19 22:46 Dose: 300 mg Duloxetine HCl (Cymbalta -) 30 mg PO DAILY [facility] Last Admin: 09/24/19 10:04 Dose: 30 mg Furosemide (Lasix -) 40 mg PO BID@0600,1400 [facility] Last Admin: 09/24/19 15:15 Dose: 40 mg Heparin Sodium (Porcine) (Heparin -) 1,000 unit IVPUSH PRN PRN PRN Reason: Heparin Heparin Sodium (Porcine) (Heparin -) 5,000 unit IVPUSH PRN PRN PRN Reason: Heparin Last Admin: 09/22/19 18:38 Dose: 5,000 unit Heparin Sodium/Dextrose (Heparin Infusion -) 25,000 units in 500 mls @ 20 mls/ hr IVPB TITR [facility]; Protocol Last Admin: 09/23/19 18:24 Dose: 800 units/hr, 16 mls/hr Magnesium Citrate (Citroma -) 300 ml PO Q48H PRN PRN Reason: CONSTIPATION Polyethylene Glycol (Miralax (For Daily Use) -) 17 gm PO DAILY [facility] Last Admin: 09/24/19 10:05 Dose: 17 gm Solifenacin (Vesicare -) 10 mg PO DAILY [facility] Last Admin: 09/24/19 10:04 Dose: 10 mg - Objective Vital Signs: Vital Signs Temperature 98.3 F 09/24/19 10:00 Pulse Rate 96 H 09/24/19 14:04 Respiratory Rate 17 09/24/19 14:04 Blood Pressure 140/76 09/24/19 14:04 O2 Sat by Pulse Oximetry (%) 96 09/24/19 10:00 Constitutional: Yes: No Distress Eyes: Yes: WNL HENT: Yes: WNL Neck: Yes: WNL Cardiovascular: Yes: Regular Rate and Rhythm, S1, S2 Respiratory: Yes: CTA Bilaterally Gastrointestinal: Yes: Soft Edema: LLE: Trace, RLE: Trace Neurological: Yes: Alert, Oriented Labs: CBC, BMP 09/24/19 05:50 09/23/19 06:33 Assessment/Plan 69 year old female with a PMH of MS and chronic venous insufficiency. She presents now from her PCP's office with TRONCOSO and worsening LE edema. The patient state the dyspnea has been getting progressively worse over the past 2-[address] scan shows bilateral segmental PE's. 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) Current meds: Amantadine HCl (Symmetrel -) 100 mg PO HS [facility] Last Admin: 09/23/19 22:46 Dose: 100 mg Amantadine HCl (Symmetrel -) 200 mg PO AM [facility] Last Admin: 09/24/19 06:46 Dose: 200 mg Bisacodyl (Dulcolax -) 5 mg PO DAILY PRN PRN Reason: CONSTIPATION Last Admin: 09/23/19 18:24 Dose: 5 mg Docusate Sodium (Colace -) 300 mg PO HS [facility] Last Admin: 09/23/19 22:46 Dose: 300 mg Duloxetine HCl (Cymbalta -) 30 mg PO DAILY [facility] Last Admin: 09/24/19 10:04 Dose: 30 mg Furosemide (Lasix -) 40 mg PO BID@0600,1400 [facility] Last Admin: 09/24/19 15:15 Dose: 40 mg Heparin Sodium (Porcine) (Heparin -) 1,000 unit IVPUSH PRN PRN PRN Reason: Heparin Heparin Sodium (Porcine) (Heparin -) 5,000 unit IVPUSH PRN PRN PRN Reason: Heparin Last Admin: 09/22/19 18:38 Dose: 5,000 unit Heparin Sodium/Dextrose (Heparin Infusion -) 25,000 units in 500 mls @ 20 mls/ hr IVPB TITR [facility]; Protocol Last Admin: 09/23/19 18:24 Dose: 800 units/hr, 16 mls/hr Magnesium Citrate (Citroma -) 300 ml PO Q48H PRN PRN Reason: CONSTIPATION Polyethylene Glycol (Miralax (For Daily Use) -) 17 gm PO DAILY [facility] Last Admin: 09/24/19 10:05 Dose: 17 gm Solifenacin (Vesicare -) 10 mg PO DAILY [facility] Last Admin: 09/24/19 10:04 Dose: 10 mg
[2019-09-24] MEDS ORDERED: PT OWN MED DRAWER 7, Y5N ONE (21:40)
[2019-09-24] MEDS: APIXABAN 5 MG TABLET PO SCH (21:41)
[2019-09-24] MEDS: DOCUSATE SODIUM 100 MG CAPSULE (FP) PO SCH (21:41)
--- NOTE | 2019-09-25 06:16 | PN ---
Progress Note (short form) - Note Progress Note: PAtient seen and examined Feels OK AFVSS Cor: RSR, No murmurs, No gallops Lungs: Clear to P&A Abd: Soft, Normal bowel sounds, No organomegaly Ext:No significant edema LAbs/MEds reviewed A/P
--- NOTE | 2019-09-25 06:17 | CONSULT ---
Consult - text type - Consultation Consultation Note: 69-year-old female with history of MS, lost to PCP follow-up over the last few years while she was caring for her with end-stage cancer, now sent after first visit with Dr. Briceno for further evaluation of several months/1 year of progressive lower extremity swelling and now 1 week of dyspnea on exertion. Patient denies any chest pain, denies any calf pain, denies any fevers or chills or cough. No orthopnea but sleeps in a recliner at night, no smoking history, no weight loss or night sweats. CT scan shows bilateral segmental PE's. LE Doppler negative for a DVT Echocardiogram 09/23/2019: RV pressure overload RV is moderately dilated Severe pulmonary HTN - Smoking History Smoking history: Never smoked - Allergies Allergies/Adverse Reactions: Allergies Allergy/AdvReac Type Severity Reaction Status Date / Time No Known Allergies Allergy Verified 09/22/19 13:40 - Home Medications Home Medications: Ambulatory Orders Amantadine HCl [Amantadine] 100 mg PO HS 09/22/19 Amantadine HCl [Amantadine] 200 mg PO AM 09/22/19 Duloxetine HCl [Cymbalta] 30 mg PO DAILY 09/22/19 Solifenacin Succinate [Vesicare -] 10 mg PO DAILY 09/22/19 Glatiramer Acetate [Copaxone] 40 mg SQ 09/23/19 Vital Signs: AFVSS Constitutional: Yes: No Distress Eyes: Yes: WNL, Occular Prosthesis Neck: Yes: WNL Respiratory: Yes: CTA Bilaterally Gastrointestinal: Yes: Soft Cardiovascular: Yes: Regular Rate and Rhythm Heart Sounds: Yes: S1, S2 Edema: LLE: Trace, RLE: Trace Neurological: Yes: Alert, Oriented Labs/Meds reviewed Assessment/Plan 69 year old female with a PMH of MS and chronic venous insufficiency. She presents now from her PCP's office with TRONCOSO and worsening LE edema. The patient state the dyspnea has been getting progressively worse over the past 2-[address] scan shows bilateral segmental PE's. LE Doppler negative for a DVT Echocardiogram 09/23/2019: RV pressure overload RV is moderately dilated Severe pulmonary HTN Pulmonary Embolism Evidence of right heart strain Symptomatically improved on heparin Presently hemodynamically stable, Unprovoked, PE (?? relatively sedentary form MS) Switching to eliquis 10mg bid will request pulmonary eval. will also request neuro/ PT eval to assessher gait
[2019-09-25] MEDS ORDERED: PT OWN MED DRAWER 7, Y5N ONE (06:51)
[2019-09-25] MEDS: AMANTADINE HCL 100 MG TABLET PO SCH ×2 (06:57→21:49)
[2019-09-25] MEDS: FUROSEMIDE 40 MG TABLET (FP) PO SCH ×2 (06:57→14:02)
--- NOTE | 2019-09-25 07:42 | PN ---
Progress Note, Physician Chief Complaint: SOB is much improved. Ambulated to off O2. Leg swelling persists but improved History of Present Illness: 69 y.o. M PMH multiple sclerosis & chronic venous insufficiency presenting for bilateral pulmonary emboli. - Current Medication List Current Medications: Active Medications Amantadine HCl (Symmetrel -) 100 mg PO HS [facility] Last Admin: 09/24/19 21:41 Dose: 100 mg Amantadine HCl (Symmetrel -) 200 mg PO AM [facility] Last Admin: 09/25/19 06:57 Dose: 200 mg Apixaban (Eliquis -) 10 mg PO BID [facility] Stop: 10/01/19 21:59 Last Admin: 09/24/19 21:41 Dose: 10 mg Bisacodyl (Dulcolax -) 5 mg PO DAILY PRN PRN Reason: CONSTIPATION Last Admin: 09/23/19 18:24 Dose: 5 mg Docusate Sodium (Colace -) 300 mg PO HS [facility] Last Admin: 09/24/19 21:41 Dose: 300 mg Duloxetine HCl (Cymbalta -) 30 mg PO DAILY [facility] Last Admin: 09/24/19 10:04 Dose: 30 mg Furosemide (Lasix -) 40 mg PO BID@0600,1400 [facility] Last Admin: 09/25/19 06:57 Dose: 40 mg Magnesium Citrate (Citroma -) 300 ml PO Q48H PRN PRN Reason: CONSTIPATION Polyethylene Glycol (Miralax (For Daily Use) -) 17 gm PO DAILY [facility] Last Admin: 09/24/19 10:05 Dose: 17 gm Solifenacin (Vesicare -) 10 mg PO DAILY [facility] Last Admin: 09/24/19 10:04 Dose: 10 mg - Objective Vital Signs: Vital Signs Temperature 97.9 F 09/25/19 02:00 Pulse Rate 95 H 09/25/19 06:00 Respiratory Rate 20 09/25/19 06:00 Blood Pressure 130/81 09/25/19 06:00 O2 Sat by Pulse Oximetry (%) 88 L 09/24/19 20:14 Additional Findings/Remarks: Constitutional: Yes: Well Nourished, No Distress Eyes: Yes: WNL, Conjunctiva Clear, EOM Intact HENT: Yes: WNL, Atraumatic, Normocephalic Neck: Yes: WNL, Supple, Trachea Midline Cardiovascular: Yes: Regular Rate and Rhythm, HR 80-90s Respiratory: Yes: Diminished (at bases), On Nasal O2 (2L) Gastrointestinal: Yes: WNL, Normal Bowel Sounds ...Rectal Exam: Yes: Deferred Genitourinary: Yes: WNL Breast(s): Yes: WNL Musculoskeletal: Yes: WNL Extremities: Yes: WNL Edema: No Edema: LLE: 2+, RLE: 2+ Peripheral Pulses WNL: No Peripheral Pulses: Left Radial: 2+, Right Radial: 2+, Left Doralis Pedis: 1+, Right Dorsalis Pedis: 1+, Left Femoral: 2+, Right Femoral: 2+ Integumentary: Yes: Petechiae (to calves BL) Neurological: Yes: WNL, Alert, Oriented ...Motor Strength: WNL (generalized weakness) Labs: CBC, BMP 09/24/19 05:50 09/23/19 06:33 Problem List - Problems (1) Prophylactic measure Assessment/Plan: FEN Fluids: adequate PO intake Electrolytes: monitor & replete as needed Nutrition: low Na diet DVT high risk started eliquis 10mg bid x 1 week Dispo Maintain as inpatient on tele full code discharge planning Code(s): Z29.9 - ENCOUNTER FOR PROPHYLACTIC MEASURES, UNSPECIFIED (2) Chronic venous insufficiency of lower extremity Assessment/Plan: chronic venous sufficiency with LE edmea worsening LE edema over past week Dopplers of LE done, negative c/w lasix 40mg bid Code(s): I87.2 - VENOUS INSUFFICIENCY (CHRONIC) (PERIPHERAL) (3) Multiple sclerosis Assessment/Plan: Follows with neurologist for MS as per pt MS has been stable recently, ambulates with cane PT following fall precautions neurology consulted for gait assessment for progression of MS Code(s): G35 - MULTIPLE SCLEROSIS (4) Pulmonary embolism Assessment/Plan: BL segmental PEs treated with Heparin gtt and converted to Eliquis will need assisted anticoagulation with NOAC PE appears unprovoked heme consulation requested, hypercoagulation w/u in progress Right heart strain with severe pul htn Appreciate cardiology consultation supplemental O2 to mainatin SPO2 >88% Code(s): I26.99 - OTHER PULMONARY EMBOLISM WITHOUT ACUTE COR PULMONALE Qualifiers: Pulmonary embolism type: unspecified Chronicity: acute Acute cor pulmonale presence: unspecified Qualified Code(s): I26.99 - Other pulmonary embolism without acute cor pulmonale (5) Shortness of breath Assessment/Plan: dysnpea persists with ambulation/exertion resolving with O2 Code(s): R06.02 - SHORTNESS OF BREATH (6) Pulmonary hypertension, moderate to severe Assessment/Plan: severe PHtn seen on TTE trops neg cardiology following pulomonary following Code(s): I27.20 - PULMONARY HYPERTENSION, UNSPECIFIED Visit type - Emergency Visit Emergency Visit: Yes ED Registration Date: 09/22/19 Care time: The patient presented to the Emergency Department on the above date and was hospitalized for further evaluation of their emergent condition. - New Patient This patient is new to me today: No - Critical Care Critical Care patient: No - Discharge Referral Referred to [facility] Med P.C.: No
[2019-09-25 07:57] LABS: HEMATOCRIT 34.7 % (32.4-45.2); HEMOGLOBIN 10.5 GM/dL (10.7-15.3); MCHC 30.3 g/dl (32.0-36.0); MEAN CELL VOLUME 62.7 fl (80-96); MEAN PLT VOLUME 9.1 fl (7.5-11.1); PLATELET COUNT 185 K/MM3 (134-434); RBC 5.53 M/mm3 (3.60-5.2); RDW 20.1 % (11.6-15.6); WHITE BLOOD COUNT 5.2 K/mm3 (4.0-10.0)
[2019-09-25] MEDS: DULoxetine HCL 30 MG CAPSULE.DR PO SCH (09:33)
[2019-09-25] MEDS: POLYETHYLENE GLYCOL 3350 119 GM BTL PO SCH (09:33)
[2019-09-25] MEDS: APIXABAN 5 MG TABLET PO SCH ×2 (09:33→21:49)
[2019-09-25] MEDS: SOLIFENACIN SUCCINATE 5 MG TAB PO SCH (09:34)
--- NOTE | 2019-09-25 12:26 | PN ---
Progress Note (short form) - Note Progress Note: PULMONARY CONSULTATION DICTATED 09/25/19 IMP BILATERAL PULMONARY EMBOLI LIKELY ACUTE ON CHRONIC UNPROVOKED SEVERE PULMONARY HTN WITH RV DYSFUNCTION HYPOXEMIA MULTIPLE SCLEROSIS PLAN AC O2 NEEDED F/U ECHO W/U FOR HYPERCOAGULABLE STATE DR PARADA Problem List - Problems (1) Chronic venous insufficiency of lower extremity Code(s): I87.2 - VENOUS INSUFFICIENCY (CHRONIC) (PERIPHERAL) (2) Multiple sclerosis Code(s): G35 - MULTIPLE SCLEROSIS (3) Pulmonary embolism Code(s): I26.99 - OTHER PULMONARY EMBOLISM WITHOUT ACUTE COR PULMONALE Qualifiers: Pulmonary embolism type: unspecified Chronicity: acute Acute cor pulmonale presence: unspecified Qualified Code(s): I26.99 - Other pulmonary embolism without acute cor pulmonale (4) Pulmonary hypertension, moderate to severe Code(s): I27.20 - PULMONARY HYPERTENSION, UNSPECIFIED (5) Shortness of breath Code(s): R06.02 - SHORTNESS OF BREATH (6) Hypoxemia Code(s): R09.02 - HYPOXEMIA
--- NOTE | 2019-09-25 13:29 | CONS ---
PULMONARY CONSULTATION DATE OF CONSULTATION: 09/25/2019 REFERRING PHYSICIAN: MAGALY Gold HISTORY OF PRESENT ILLNESS: Patient is a 69-year-old, white female with past medical history of multiple sclerosis since 1979, chronic venous insufficiency, nonsmoker, admitted to [facility] on September 22 with complaint of increasing shortness of breath and dyspnea on exertion. Patient went to her PCP's office with complaint of dyspnea on exertion and increasing lower extremity edema; at which time, she was advised to go to the emergency room. Of note is patient states since July, around J[place], she started developing shortness of breath and dyspnea on exertion. She attributed this to her limited mobility, secondary to MS. She also noted increasing lower extremity edema. Over the past 2 weeks, she had increasing lower extremity edema, as well as dyspnea on exertion, and 2-3 days prior to admission, the symptoms became progressively worse; at which time, she presented to the emergency room. In the ER, she underwent a duplex of the lower extremity, which revealed no evidence of DVT. She also underwent a CTA of the chest which revealed bilateral segmental pulmonary emboli; no saddle embolus or large emboli appreciated; also, there is evidence of heart strain. She underwent an echocardiogram which revealed a flattened intraventricular septum due to RV pressure overload; normal LV function; right ventricle moderately dilated; right ventricular systolic function moderately reduced; moderate tricuspid regurgitation; severe pulmonary hypertension. Troponins were negative. Patient was also noted to be hypoxic for which she was placed on supplemental O2. Patient was initially started on IV anticoagulation changed to Eliquis. Patient denies any complaint of shortness of breath, at this time, and appears comfortable at rest. PAST MEDICAL HISTORY: Again, includes advanced multiple sclerosis, chronic lower extremity edema. SOCIAL HISTORY: Nonsmoker. No occupational exposures. REVIEW OF SYSTEMS: No orthopnea. No PND. Positive dyspnea on exertion. No chest pain. No palpitations. No cough. No hemoptysis. PHYSICAL EXAMINATION: General: Patient is a well-developed, well-nourished, female, awake, alert, in no acute distress. Vital Signs: She is afebrile, her blood pressure is 143/103, respiratory rate is 18. Her O2 saturation is 94% on 2 L. HEENT: Exam is normocephalic, atraumatic. Neck: Supple. Heart: Regular S1 and S2. Chest: Clear. Abdomen: Soft. Bowel sounds are positive. Extremities: Bilateral lower extremity edema. Chest CT as noted earlier. IMPRESSION: 1. Likely acute on chronic bilateral pulmonary emboli. 2. Severe pulmonary hypertension with right ventricular dysfunction, secondary to above. 3. Hypoxemia, secondary to above. 4. Multiple sclerosis. PLAN: Continue anticoagulation. Supplemental O2. Followup echo. Workup for hypercoagulable state. If the patient should develop worsening respiratory symptoms, consider IR intervention for thrombolytic therapy. KARTHIKEYAN PARADA M.D. [id number] MTDD
[2019-09-25] MEDS: HEPARIN INFUSION - 25,000 UNITS/500 ML INFUS.BAG IVPB SCH (14:01)
[2019-09-25] MEDS: DOCUSATE SODIUM 100 MG CAPSULE (FP) PO SCH (21:49)
[2019-09-26 07:02] LABS: HEMOGLOBIN 10.6 GM/dL (10.7-15.3); MCHC 30.2 g/dl (32.0-36.0); MEAN CELL VOLUME 63.4 fl (80-96); MEAN PLT VOLUME 9.1 fl (7.5-11.1); PLATELET COUNT 195 K/MM3 (134-434); RBC 5.51 M/mm3 (3.60-5.2); RDW 20.4 % (11.6-15.6); WHITE BLOOD COUNT 4.6 K/mm3 (4.0-10.0)
[2019-09-26] MEDS: AMANTADINE HCL 100 MG TABLET PO SCH ×2 (07:04→21:34)
[2019-09-26] MEDS: FUROSEMIDE 40 MG TABLET (FP) PO SCH ×2 (07:04→13:21)
[2019-09-26 07:13] LABS: MCH 19.2 pg (25.7-33.7)
[2019-09-26] MEDS: DULoxetine HCL 30 MG CAPSULE.DR PO SCH (10:01)
[2019-09-26] MEDS: APIXABAN 5 MG TABLET PO SCH ×2 (10:01→21:34)
[2019-09-26] MEDS: POLYETHYLENE GLYCOL 3350 119 GM BTL PO SCH (10:01)
[2019-09-26] MEDS: SOLIFENACIN SUCCINATE 5 MG TAB PO SCH (10:02)
--- NOTE | 2019-09-26 11:08 | CONSULT ---
Consult - text type - Consultation Consultation Note: Neurology CHIEF COMPLAINT: dyspnea, LE edema PCP: Dr. Briceno HISTORY OF PRESENT ILLNESS: 69 y.o. M PMH multiple sclerosis & chronic venous insufficiency presenting from PCP's office on day of admission, for dyspnea on exertion and worsening LE edema. The patient stated the dyspnea has been getting progressively worse over the past 2-3 days. The SOB only occurs on exertion and not at rest. She denied associated chest pain. The patient endorses a baseline LE edema but it has been progressively worsening over the past 7-8 days. She is mostly sedentary but is able to walk with a cane. Denies recent travel. Of note, the patient he sees Dr. Garces (neurology) for her multiple sclerosis who recently increased her Copaxone dose. BLE vascular study completed, negative of DVT. Chest CTA indicates acute bilateral segmental embolim, possible right heart strain, minimal to mild left lower lobe and bilateral lower lobe groundglass attenuation. ECHO completed, results noted, severe pulmonary hypertension, flattened interventricular septum due RV pressure overload. Troponin elevated 0.04, CPK elevated 299, BNP elevated 4022.7, D-dimer 874. Asked to evaluate regarding MS and gait. Patient on Copaxone and sees Dr. Velasco as outpatient for this. Being treated for PE. Ambulation requires cane which is at bedside and she has antalgic gait which is slow with slight shuffle (but not parkinsonian). May benefit from PT, short term rehab if desired. Reports last fall was in neurologist office over a month ago. Recent Travel: denies PAST MEDICAL HISTORY: as per hpi PAST SURGICAL HISTORY: R elbow surgery w/ 2 screws placed Social History: lives alone. recently this past year. Smoking: denies Alcohol:denies Drugs: denies Family History: rheumatological disease in mother Allergies No Known Allergies Allergy (Verified 09/22/19 13:40) HOME MEDICATIONS: Ambulatory Orders Amantadine HCl [Amantadine] 100 mg PO HS 09/22/19 Amantadine HCl [Amantadine] 200 mg PO AM 09/22/19 Duloxetine HCl [Cymbalta] 30 mg PO DAILY 09/22/19 Solifenacin Succinate [Vesicare -] 10 mg PO DAILY 09/22/19 Glatiramer Acetate [Copaxone] 40 mg SQ 09/23/19 Active Medications Amantadine HCl (Symmetrel -) 100 mg PO HS [facility] Last Admin: 09/25/19 21:49 Dose: 100 mg Amantadine HCl (Symmetrel -) 200 mg PO AM [facility] Last Admin: 09/26/19 07:04 Dose: 200 mg Apixaban (Eliquis -) 10 mg PO BID [facility] Stop: 10/01/19 10:01 Last Admin: 09/26/19 10:01 Dose: 10 mg Bisacodyl (Dulcolax -) 5 mg PO DAILY PRN PRN Reason: CONSTIPATION Last Admin: 09/23/19 18:24 Dose: 5 mg Docusate Sodium (Colace -) 300 mg PO HS [facility] Last Admin: 09/25/19 21:49 Dose: 300 mg Duloxetine HCl (Cymbalta -) 30 mg PO DAILY [facility] Last Admin: 09/26/19 10:01 Dose: 30 mg Furosemide (Lasix -) 40 mg PO BID@0600,1400 [facility] Last Admin: 09/26/19 07:04 Dose: 40 mg Magnesium Citrate (Citroma -) 300 ml PO Q48H PRN PRN Reason: CONSTIPATION Polyethylene Glycol (Miralax (For Daily Use) -) 17 gm PO DAILY [facility] Last Admin: 09/26/19 10:01 Dose: 17 gm Solifenacin (Vesicare -) 10 mg PO DAILY [facility] Last Admin: 09/26/19 10:02 Dose: 10 mg REVIEW OF SYSTEMS CONSTITUTIONAL: Absent: fever, chills, diaphoresis, generalized weakness, malaise, loss of appetite, weight change HEENT: Absent: rhinorrhea, nasal congestion, throat pain, throat swelling, difficulty swallowing, mouth swelling, ear pain, eye pain, visual changes CARDIOVASCULAR: peripheral edema Absent: chest pain, syncope, palpitations, irregular heart rate, lightheadedness RESPIRATORY: dyspnea with exertion Absent: cough, shortness of breath, orthopnea, wheezing, stridor, hemoptysis GASTROINTESTINAL: Absent: abdominal pain, abdominal distension, nausea, vomiting, diarrhea, constipation, melena, hematochezia GENITOURINARY: Absent: dysuria, frequency, urgency, hesitancy, hematuria, flank pain, genital pain MUSCULOSKELETAL: Absent: myalgia, arthralgia, joint swelling, back pain, neck pain SKIN: Absent: rash, itching, pallor HEMATOLOGIC/IMMUNOLOGIC: Absent: easy bleeding, easy bruising, lymphadenopathy, frequent infections ENDOCRINE: Absent: unexplained weight gain, unexplained weight loss, heat intolerance, cold intolerance NEUROLOGIC: Absent: headache, focal weakness or paresthesias, dizziness, unsteady gait, seizure, mental status changes, bladder or bowel incontinence PSYCHIATRIC: Absent: anxiety, depression, suicidal or homicidal ideation, hallucinations. PHYSICAL EXAMINATION Vital Signs Period Temp Pulse Resp BP Sys/Rhoades Pulse Ox Last 24 Hr 97.5 F-98.8 F 77-94 18-20 125-146/67-89 94 GENERAL: Awake, alert, and fully oriented, in no acute distress. HEENT: NCAT. PERRLA. Conjunctiva clear. MMM. No JVD LUNGS: Breath sounds diminished @ b/l bases. No wheezes, and no crackles. No accessory muscle use. HEART: Regular rate and rhythm, normal S1 and S2 without murmur, rub or gallop. ABDOMEN: Soft, nontender, not distended, normoactive bowel sounds. EXTREMITIES: 2+ pitting edema b/l LE. 2+ pulses, warm, well-perfused. NEUROLOGICAL: Cranial nerves II-XII intact. Normal speech. Normal gait. PSYCHIATRIC: Cooperative. Good eye contact. Appropriate mood and affect. SKIN: Warm, dry, normal turgor, no rashes or lesions noted, normal capillary refill. CBCD WBC 4.6 K/mm3 (4.0-10.0) 09/26/19 05:55 RBC 5.51 M/mm3 (3.60-5.2) H 09/26/19 05:55 Hgb 10.6 GM/dL (10.7-15.3) L 09/26/19 05:55 Hct 35.0 % (32.4-45.2) 09/26/19 05:55 MCV 63.4 fl (80-96) L 09/26/19 05:55 MCHC 30.2 g/dl (32.0-36.0) L 09/26/19 05:55 RDW 20.4 % (11.6-15.6) H 09/26/19 05:55 Plt Count 195 K/MM3 (134-434) 09/26/19 05:55 MPV 9.1 fl (7.5-11.1) 09/26/19 05:55 CMP Sodium 141 mmol/L (136-145) 09/23/19 06:33 Potassium 3.4 mmol/L (3.5-5.1) L 09/23/19 06:33 Chloride 108 mmol/L (98-107) H 09/23/19 06:33 Carbon Dioxide 25 mmol/L (21-32) 09/23/19 06:33 Anion Gap 9 MMOL/L (8-16) 09/23/19 06:33 BUN 16.4 mg/dL (7-18) 09/23/19 06:33 Creatinine 0.9 mg/dL (0.55-1.3) 09/23/19 06:33 Random Glucose 107 mg/dL (74-106) H 09/23/19 06:33 Calcium 8.9 mg/dL (8.5-10.1) 09/23/19 06:33 Total Bilirubin 1.0 mg/dL (0.2-1) 09/23/19 06:33 AST 13 U/L (15-37) L 09/23/19 06:33 ALT 28 U/L (13-61) 09/23/19 06:33 Alkaline Phosphatase 90 U/L (45-117) 09/23/19 06:33 Total Protein 6.4 g/dl (6.4-8.2) 09/23/19 06:33 Albumin 3.5 g/dl (3.4-5.0) 09/23/19 06:33 CARDIAC ENZYMES Creatine Kinase 299 U/L (26-192) H 09/22/19 15:30 Troponin I 0.04 ng/ml (0.00-0.05) 09/22/19 15:30 ASSESSMENT/PLAN 69 y.o. M [facility] multiple sclerosis & chronic venous insufficiency presenting from PCP's office on day of admission, for dyspnea on exertion and worsening LE edema. The patient stated the dyspnea has been getting progressively worse over the past 2-3 days. The SOB only occurs on exertion and not at rest. She denied associated chest pain. The patient endorses a baseline LE edema but it has been progressively worsening over the past 7-8 days. She is mostly sedentary but is able to walk with a cane. Denies recent travel. Of note, the patient he sees Dr. Garces (neurology) for her multiple sclerosis who recently increased her Copaxone dose. BLE vascular study completed, negative of DVT. Chest CTA indicates acute bilateral segmental embolim, possible right heart strain, minimal to mild left lower lobe and bilateral lower lobe groundglass attenuation. ECHO completed, results noted, severe pulmonary hypertension, flattened interventricular septum due RV pressure overload. Troponin elevated 0.04, CPK elevated 299, BNP elevated 4022.7, D-dimer 874. Ambulation requires cane which is at bedside and she has antalgic gait which is slow with slight shuffle (but not parkinsonian). May benefit from PT, short term rehab if desired. Reports last fall was in neurologist office over a month ago. Continue treatment for PE. Should follow up with neurologist, continue current dose of copaxone, would not make major changes right now and best to have her neurologist consider further adjustments. Fall precautions, continue use of cane and possibly walker which she also has.
--- NOTE | 2019-09-26 12:19 | PN ---
Progress Note (short form) - Note Progress Note: OOB to chair on NC O2. Reports breathing feels better. Less SOB and no CP. Intake & Output 09/23/19 09/24/19 09/25/19 09/26/19 23:59 23:59 23:59 23:59 Intake Total 503 203 7612 120 Balance 353 811 6700 120 Weight 182 lb 9.6 oz Last Vital Signs Temp Pulse Resp BP Pulse Ox 98.8 F 77 18 146/76 94 L 09/26/19 08:49 09/26/19 08:49 09/26/19 08:49 09/26/19 08:49 09/25/19 21:00 Active Medications Amantadine HCl (Symmetrel -) 100 mg PO HS [facility] Last Admin: 09/25/19 21:49 Dose: 100 mg Amantadine HCl (Symmetrel -) 200 mg PO AM [facility] Last Admin: 09/26/19 07:04 Dose: 200 mg Apixaban (Eliquis -) 10 mg PO BID [facility] Stop: 10/01/19 10:01 Last Admin: 09/26/19 10:01 Dose: 10 mg Bisacodyl (Dulcolax -) 5 mg PO DAILY PRN PRN Reason: CONSTIPATION Last Admin: 09/23/19 18:24 Dose: 5 mg Docusate Sodium (Colace -) 300 mg PO HS [facility] Last Admin: 09/25/19 21:49 Dose: 300 mg Duloxetine HCl (Cymbalta -) 30 mg PO DAILY [facility] Last Admin: 09/26/19 10:01 Dose: 30 mg Furosemide (Lasix -) 40 mg PO BID@0600,1400 [facility] Last Admin: 09/26/19 07:04 Dose: 40 mg Magnesium Citrate (Citroma -) 300 ml PO Q48H PRN PRN Reason: CONSTIPATION Polyethylene Glycol (Miralax (For Daily Use) -) 17 gm PO DAILY [facility] Last Admin: 09/26/19 10:01 Dose: 17 gm Solifenacin (Vesicare -) 10 mg PO DAILY [facility] Last Admin: 09/26/19 10:02 Dose: 10 mg ENERAL: Awake, alert, and fully oriented, in no acute distress. HEENT: NCAT. PERRLA. Conjunctiva clear. MMM. No JVD LUNGS: Breath sounds diminished @ b/l bases. No wheezes, and no crackles. No accessory muscle use. HEART: Regular rate and rhythm, normal S1 and S2 without murmur, rub or gallop. ABDOMEN: Soft, nontender, not distended, normoactive bowel sounds. EXTREMITIES: 2+ pitting edema b/l LE. 2+ pulses, warm, well-perfused. NEUROLOGICAL: Non-focal PSYCHIATRIC: Cooperative. Good eye contact. Appropriate mood and affect. SKIN: Warm, dry, normal turgor, no rashes or lesions noted, normal capillary refill. Laboratory Results - last 24 hr 09/26/19 09/26/19 05:55 05:55 WBC 4.6 RBC 5.51 H Hgb 10.6 L Hct 35.0 MCV 63.4 L MCH 19.2 L MCHC 30.2 L RDW 20.4 H Plt Count 195 MPV 9.1 PTT (Actin FS) 34.9 Problem List - Problems (1) Chronic venous insufficiency of lower extremity Code(s): I87.2 - VENOUS INSUFFICIENCY (CHRONIC) (PERIPHERAL) (2) Multiple sclerosis Code(s): G35 - MULTIPLE SCLEROSIS (3) Pulmonary embolism Code(s): I26.99 - OTHER PULMONARY EMBOLISM WITHOUT ACUTE COR PULMONALE Qualifiers: Pulmonary embolism type: unspecified Chronicity: acute Acute cor pulmonale presence: unspecified Qualified Code(s): I26.99 - Other pulmonary embolism without acute cor pulmonale (4) Pulmonary hypertension, moderate to severe Code(s): I27.20 - PULMONARY HYPERTENSION, UNSPECIFIED (5) Shortness of breath Code(s): R06.02 - SHORTNESS OF BREATH (6) Hypoxemia Code(s): R09.02 - HYPOXEMIA IMP BILATERAL PULMONARY EMBOLI LIKELY ACUTE ON CHRONIC UNPROVOKED SEVERE PULMONARY HTN WITH RV DYSFUNCTION HYPOXEMIA MULTIPLE SCLEROSIS PLAN ELIQUIS 10MG BID X 7 DAYS THEN 5MG BID O2 NEEDED W/U FOR HYPERCOAGULABLE STATE PER HEME DR PETERSEN
--- NOTE | 2019-09-26 17:21 | PN ---
Physical Exam: SUBJECTIVE: Patient seen and examined. She says she feels less SOB. OBJECTIVE: Vital Signs Period Temp Pulse Resp BP Sys/Rhoades Pulse Ox Last 24 Hr 97.5 F-98.8 F 77-94 18-20 113-146/65-89 94-100 GENERAL: The patient is awake, alert, and fully oriented, in no acute distress. LUNGS: Breath sounds equal, clear to auscultation bilaterally, no wheezes, no crackles, no accessory muscle use. HEART: Regular rate and rhythm, S1, S2 without murmur, rub or gallop. ABDOMEN: Obese, soft, nontender, nondistended, normoactive bowel sounds, no guarding, no rebound, no hepatosplenomegaly, no masses. EXTREMITIES: 2+ pulses, warm, well-perfused, 2+ edema. Laboratory Results - last 24 hr 09/26/19 09/26/19 05:55 05:55 WBC 4.6 RBC 5.51 H Hgb 10.6 L Hct 35.0 MCV 63.4 L MCH 19.2 L MCHC 30.2 L RDW 20.4 H Plt Count 195 MPV 9.1 PTT (Actin FS) 34.9 Active Medications Generic Name Dose Route Start Last Admin Trade Name Freq PRN Reason Stop Dose Admin Amantadine HCl 100 mg 09/23/19 22:00 09/25/19 21:49 Symmetrel - PO 100 mg HS FRANK Administration Amantadine HCl 200 mg 09/23/19 07:00 09/26/19 07:04 Symmetrel - PO 200 mg AM FRANK Administration Apixaban 10 mg 09/24/19 22:00 09/26/19 10:01 Eliquis - PO 10/01/19 10:01 10 mg BID FRANK Administration Bisacodyl 5 mg 09/23/19 17:42 09/23/19 18:24 Dulcolax - PO 5 mg DAILY PRN Administration CONSTIPATION Docusate Sodium 300 mg 09/23/19 22:00 09/25/19 21:49 Colace - PO 300 mg HS FRANK Administration Duloxetine HCl 30 mg 09/23/19 10:00 09/26/19 10:01 Cymbalta - PO 30 mg DAILY FRANK Administration Furosemide 40 mg 09/24/19 14:00 09/26/19 13:21 Lasix - PO 40 mg BID@0600,1400 FRANK Administration Magnesium Citrate 300 ml 09/23/19 17:43 Citroma - PO Q48H PRN CONSTIPATION Polyethylene Glycol 17 gm 09/24/19 10:00 09/26/19 10:01 Miralax (For Daily Use) - PO 17 gm DAILY FRANK Administration Solifenacin 10 mg 09/23/19 10:00 09/26/19 10:02 Vesicare - PO 10 mg DAILY FRANK Administration ASSESSMENT/PLAN: This is a 69 year old woman with a history of MS, chronic venous insufficiency who presented to the ED with SOB with exertion and increasing leg edema. 1. Acute cor pulmonale secondary to acute bilateral pulmonary emboli - Chest CTA shows acute bilateral emboli, possible right heart strain, bilateral lower lobe ground glass attenuation - Echo shows flattened intraventricular septum due to RV pressure overload, normal LV, moderately dilated RV, moderately reduced RV systolic function, moderate TR, severe pulm HTN - Venous dopplers negative for DVT - Continue Eliquis, Lasix 2. Chronic venous insufficiency of both legs 3. Multiple sclerosis - Continue Amantadine, Vesicare, Cymbalta Visit type - Emergency Visit Emergency Visit: Yes ED Registration Date: 09/22/19 Care time: The patient presented to the Emergency Department on the above date and was hospitalized for further evaluation of their emergent condition. - New Patient This patient is new to me today: Yes Date on this admission: 09/26/19 - Critical Care Critical Care patient: No - Discharge Referral Referred to [facility] Med P.C.: No
[2019-09-26] MEDS: DOCUSATE SODIUM 100 MG CAPSULE (FP) PO SCH (21:33)
[2019-09-27] MEDS: AMANTADINE HCL 100 MG TABLET PO SCH ×2 (06:27→21:49)
[2019-09-27] MEDS: FUROSEMIDE 40 MG TABLET (FP) PO SCH ×2 (06:27→13:45)
[2019-09-27 07:16] LABS: HEMATOCRIT 36.5 % (32.4-45.2); MCHC 30.1 g/dl (32.0-36.0); MEAN CELL VOLUME 62.4 fl (80-96); MEAN PLT VOLUME 9.6 fl (7.5-11.1); PLATELET COUNT 203 K/MM3 (134-434); RBC 5.86 M/mm3 (3.60-5.2); RDW 20.5 % (11.6-15.6); WHITE BLOOD COUNT 5.3 K/mm3 (4.0-10.0)
[2019-09-27 07:27] LABS: MCH 18.8 pg (25.7-33.7)
--- NOTE | 2019-09-27 07:37 | PN ---
Progress Note, Physician Chief Complaint: SOB is much improved. Ambulated 200 ft yesterday on oxygen-desaturated to 80s% History of Present Illness: 69 y.o. M PMH multiple sclerosis & chronic venous insufficiency presenting for bilateral pulmonary emboli. - Current Medication List Current Medications: Active Medications Amantadine HCl (Symmetrel -) 100 mg PO HS [facility] Last Admin: 09/26/19 21:34 Dose: 100 mg Amantadine HCl (Symmetrel -) 200 mg PO AM [facility] Last Admin: 09/27/19 06:27 Dose: 200 mg Apixaban (Eliquis -) 10 mg PO BID [facility] Stop: 10/01/19 10:01 Last Admin: 09/26/19 21:34 Dose: 10 mg Bisacodyl (Dulcolax -) 5 mg PO DAILY PRN PRN Reason: CONSTIPATION Last Admin: 09/23/19 18:24 Dose: 5 mg Docusate Sodium (Colace -) 300 mg PO HS [facility] Last Admin: 09/26/19 21:33 Dose: 300 mg Duloxetine HCl (Cymbalta -) 30 mg PO DAILY [facility] Last Admin: 09/26/19 10:01 Dose: 30 mg Furosemide (Lasix -) 40 mg PO BID@0600,1400 [facility] Last Admin: 09/27/19 06:27 Dose: 40 mg Magnesium Citrate (Citroma -) 300 ml PO Q48H PRN PRN Reason: CONSTIPATION Polyethylene Glycol (Miralax (For Daily Use) -) 17 gm PO DAILY [facility] Last Admin: 09/26/19 10:01 Dose: 17 gm Solifenacin (Vesicare -) 10 mg PO DAILY [facility] Last Admin: 09/26/19 10:02 Dose: 10 mg - Objective Vital Signs: Vital Signs Temperature 98.1 F 09/27/19 06:00 Pulse Rate 88 09/27/19 06:00 Respiratory Rate 16 09/27/19 06:00 Blood Pressure 138/80 09/27/19 06:00 O2 Sat by Pulse Oximetry (%) 97 09/26/19 20:16 Additional Findings/Remarks: Constitutional: Yes: Well Nourished, No Distress Eyes: Yes: WNL, Conjunctiva Clear, EOM Intact HENT: Yes: WNL, Atraumatic, Normocephalic Neck: Yes: WNL, Supple, Trachea Midline Cardiovascular: Yes: Regular Rate and Rhythm, HR 80-90s Respiratory: Yes: Diminished (at bases), On Nasal O2 (2L) Gastrointestinal: Yes: WNL, Normal Bowel Sounds ...Rectal Exam: Yes: Deferred Genitourinary: Yes: WNL Breast(s): Yes: WNL Musculoskeletal: Yes: WNL Extremities: Yes: WNL Edema: No Edema: LLE: 2+, RLE: 2+ Peripheral Pulses WNL: No Peripheral Pulses: Left Radial: 2+, Right Radial: 2+, Left Doralis Pedis: 1+, Right Dorsalis Pedis: 1+, Left Femoral: 2+, Right Femoral: 2+ Integumentary: Yes: Petechiae (to calves BL) Neurological: Yes: WNL, Alert, Oriented ...Motor Strength: WNL (generalized weakness) Labs: CBC, BMP 09/27/19 06:00 Problem List - Problems (1) Prophylactic measure Assessment/Plan: FEN Fluids: adequate PO intake Electrolytes: monitor & replete as needed Nutrition: low Na diet DVT high risk started eliquis 10mg bid x 1 week, decrese to 5mg on 10/01 Dispo Maintain as inpatient on tele full code discharge planning-declining SNF. Services requested for home Code(s): Z29.9 - ENCOUNTER FOR PROPHYLACTIC MEASURES, UNSPECIFIED (2) Chronic venous insufficiency of lower extremity Assessment/Plan: chronic venous sufficiency with LE edmea worsening LE edema over past week Dopplers of LE done, negative c/w lasix 40mg bid Code(s): I87.2 - VENOUS INSUFFICIENCY (CHRONIC) (PERIPHERAL) (3) Multiple sclerosis Assessment/Plan: Follows with neurologist for MS as per pt MS has been stable recently, ambulates with cane PT following fall precautions neurology following Code(s): G35 - MULTIPLE SCLEROSIS (4) Pulmonary embolism Assessment/Plan: BL segmental PEs treated with Heparin gtt and converted to Eliquis will need intermediate card tender anticoagulation with NOAC PE appears unprovoked heme consulation follwowing hypercoagulation w/u in progress Right heart strain with severe pul htn Appreciate cardiology consultation supplemental O2 to mainatin SPO2 >88% Code(s): I26.99 - OTHER PULMONARY EMBOLISM WITHOUT ACUTE COR PULMONALE Qualifiers: Pulmonary embolism type: unspecified Chronicity: acute Acute cor pulmonale presence: unspecified Qualified Code(s): I26.99 - Other pulmonary embolism without acute cor pulmonale (5) Shortness of breath Assessment/Plan: dysnpea persists with ambulation/exertion resolving with O2 pre/post to evaluate for home O2 Code(s): R06.02 - SHORTNESS OF BREATH (6) Pulmonary hypertension, moderate to severe Assessment/Plan: severe PHtn seen on TTE trops neg cardiology following pulomonary following Code(s): I27.20 - PULMONARY HYPERTENSION, UNSPECIFIED Visit type - Emergency Visit Emergency Visit: Yes ED Registration Date: 09/22/19 Care time: The patient presented to the Emergency Department on the above date and was hospitalized for further evaluation of their emergent condition. - New Patient This patient is new to me today: No - Critical Care Critical Care patient: No - Discharge Referral Referred to [facility] Med P.C.: No
[2019-09-27 07:39] LABS: CALCIUM 8.9 mg/dL (8.5-10.1); CREATININE 0.8 mg/dL (0.55-1.3); POTASSIUM 3.7 mmol/L (3.5-5.1)
[2019-09-27] MEDS ORDERED: PT OWN MED DRAWER 7, Y5N ONE (09:01)
[2019-09-27] MEDS: POLYETHYLENE GLYCOL 3350 119 GM BTL PO SCH (09:37)
[2019-09-27] MEDS: APIXABAN 5 MG TABLET PO SCH ×2 (09:38→21:48)
[2019-09-27] MEDS: SOLIFENACIN SUCCINATE 5 MG TAB PO SCH (09:38)
[2019-09-27] MEDS: DULoxetine HCL 30 MG CAPSULE.DR PO SCH (09:38)
[2019-09-27 10:34] LABS: MAGNESIUM 2.3 mg/dL (1.8-2.4)
--- NOTE | 2019-09-27 10:38 | PN ---
Progress Note (short form) - Note Progress Note: Neurology CHIEF COMPLAINT: dyspnea, LE edema PCP: Dr. Briceno HISTORY OF PRESENT ILLNESS: 69 y.o. M PMH multiple sclerosis & chronic venous insufficiency presenting from PCP's office on day of admission, for dyspnea on exertion and worsening LE edema. The patient stated the dyspnea has been getting progressively worse over the past 2-3 days, prior to admission. The SOB only occurs on exertion and not at rest. She denied associated chest pain. The patient endorses a baseline LE edema but it has been progressively worsening over the past 7-8 days prior to admission. She is mostly sedentary but is able to walk with a cane. Denies recent travel. Of note, the patient he sees Dr. Garces (neurology) for her multiple sclerosis who recently increased her Copaxone dose. BLE vascular study completed , negative of DVT. Chest CTA indicates acute bilateral segmental embolim, possible right heart strain, minimal to mild left lower lobe and bilateral lower lobe groundglass attenuation. ECHO completed, results noted, severe pulmonary hypertension, flattened interventricular septum due RV pressure overload. Troponin elevated 0.04, CPK elevated 299, BNP elevated 4022.7, D- dimer 874. Asked to evaluate regarding MS and gait. Patient on Copaxone and sees Dr. Velasco as outpatient for this. Being treated for PE. Ambulation requires cane which is at bedside and she has antalgic gait which is slow with slight shuffle (but not parkinsonian). May benefit from PT, short term rehab if desired. Reports last fall was in neurologist office over a month ago. She reports improvement in ambulation which she was questioning whether it would be attributed to diuresisand I did discuss that lower extremity edema can impact her ability to walk. She indicated she had walked comfortably from her bed to the bathroom without assistance. She is in the process of being put on Ocrelis for her MS as an outpatient and advised follow-up for this. Active Medications Amantadine HCl (Symmetrel -) 100 mg PO HS [facility] Last Admin: 09/26/19 21:34 Dose: 100 mg Amantadine HCl (Symmetrel -) 200 mg PO AM [facility] Last Admin: 09/27/19 06:27 Dose: 200 mg Apixaban (Eliquis -) 10 mg PO BID [facility] Stop: 02/20/20 10:01 Last Admin: 09/27/19 09:38 Dose: 10 mg Bisacodyl (Dulcolax -) 5 mg PO DAILY PRN PRN Reason: CONSTIPATION Last Admin: 09/23/19 18:24 Dose: 5 mg Docusate Sodium (Colace -) 300 mg PO HS [facility] Last Admin: 09/26/19 21:33 Dose: 300 mg Duloxetine HCl (Cymbalta -) 30 mg PO DAILY [facility] Last Admin: 09/27/19 09:38 Dose: 30 mg Furosemide (Lasix -) 40 mg PO BID@0600,1400 [facility] Last Admin: 09/27/19 06:27 Dose: 40 mg Magnesium Citrate (Citroma -) 300 ml PO Q48H PRN PRN Reason: CONSTIPATION Polyethylene Glycol (Miralax (For Daily Use) -) 17 gm PO DAILY [facility] Last Admin: 09/27/19 09:37 Dose: 17 gm Solifenacin (Vesicare -) 10 mg PO DAILY [facility] Last Admin: 09/27/19 09:38 Dose: 10 mg PHYSICAL EXAMINATION Vital Signs Period Temp Pulse Resp BP Sys/Rhoades Pulse Ox Last 24 Hr 97.6 F-98.8 F 82-88 16-19 113-138/65-80 97 GENERAL: Awake, alert, and fully oriented, in no acute distress. HEENT: NCAT. PERRLA. Conjunctiva clear. MMM. No JVD LUNGS: Breath sounds diminished @ b/l bases. No wheezes, and no crackles. No accessory muscle use. HEART: Regular rate and rhythm, normal S1 and S2 without murmur, rub or gallop. ABDOMEN: Soft, nontender, not distended, normoactive bowel sounds. EXTREMITIES: 2+ pitting edema b/l LE. 2+ pulses, warm, well-perfused. NEUROLOGICAL: Cranial nerves II-XII intact. Normal speech. Normal gait. PSYCHIATRIC: Cooperative. Good eye contact. Appropriate mood and affect. SKIN: Warm, dry, normal turgor, no rashes or lesions noted, normal capillary refill. CBCD WBC 5.3 K/mm3 (4.0-10.0) 09/27/19 06:00 RBC 5.86 M/mm3 (3.60-5.2) H 09/27/19 06:00 Hgb 11.0 GM/dL (10.7-15.3) 09/27/19 06:00 Hct 36.5 % (32.4-45.2) 09/27/19 06:00 MCV 62.4 fl (80-96) L 09/27/19 06:00 MCHC 30.1 g/dl (32.0-36.0) L 09/27/19 06:00 RDW 20.5 % (11.6-15.6) H 09/27/19 06:00 Plt Count 203 K/MM3 (134-434) 09/27/19 06:00 MPV 9.6 fl (7.5-11.1) 09/27/19 06:00 CMP Sodium 142 mmol/L (136-145) 09/27/19 06:00 Potassium 3.7 mmol/L (3.5-5.1) 09/27/19 06:00 Chloride 106 mmol/L (98-107) 09/27/19 06:00 Carbon Dioxide 31 mmol/L (21-32) 09/27/19 06:00 Anion Gap 6 MMOL/L (8-16) L 09/27/19 06:00 BUN 18.0 mg/dL (7-18) 09/27/19 06:00 Creatinine 0.8 mg/dL (0.55-1.3) 09/27/19 06:00 Random Glucose 98 mg/dL (74-106) 09/27/19 06:00 Calcium 8.9 mg/dL (8.5-10.1) 09/27/19 06:00 Total Bilirubin 1.0 mg/dL (0.2-1) 09/23/19 06:33 AST 13 U/L (15-37) L 09/23/19 06:33 ALT 28 U/L (13-61) 09/23/19 06:33 Alkaline Phosphatase 90 U/L (45-117) 09/23/19 06:33 Total Protein 6.4 g/dl (6.4-8.2) 09/23/19 06:33 Albumin 3.5 g/dl (3.4-5.0) 09/23/19 06:33 CARDIAC ENZYMES Creatine Kinase 299 U/L (26-192) H 09/22/19 15:30 Troponin I 0.04 ng/ml (0.00-0.05) 09/22/19 15:30 ASSESSMENT/PLAN 69 y.o. M [facility] multiple sclerosis & chronic venous insufficiency presenting from PCP's office on day of admission, for dyspnea on exertion and worsening LE edema. The patient stated the dyspnea has been getting progressively worse over the past 2-3 days prior to admission. The SOB only occurs on exertion and not at rest. She denied associated chest pain. The patient endorses a baseline LE edema but it has been progressively worsening over the past 7-8 days prior to admission. She is mostly sedentary but is able to walk with a cane. Denies recent travel. Of note, the patient he sees Dr. Garces (neurology) for her multiple sclerosis who recently increased her Copaxone dose. BLE vascular study completed , negative of DVT. Chest CTA indicates acute bilateral segmental embolim, possible right heart strain, minimal to mild left lower lobe and bilateral lower lobe groundglass attenuation. ECHO completed, results noted, severe pulmonary hypertension, flattened interventricular septum due RV pressure overload. Troponin elevated 0.04, CPK elevated 299, BNP elevated 4022.7, D- dimer 874. Ambulation requires cane which is at bedside and she has antalgic gait which is slow with slight shuffle (but not parkinsonian). May benefit from PT, short term rehab if desired. Reports last fall was in neurologist office over a month ago. Continue treatment for PE. Should follow up with neurologist, continue current dose of copaxone, would not make major changes right now and best to have her neurologist consider further adjustments. She indicated she had walked comfortably from her bed to the bathroom without assistance. She is in the process of being put on Ocrelis for her MS as an outpatient and advised follow-up for this. Fall precautions, continue use of cane and possibly walker which she also has.
--- NOTE | 2019-09-27 12:05 | PN ---
Progress Note (short form) - Note Progress Note: OOB to chair on NC O2. Reports breathing feels better. Less SOB and no CP. Intake & Output 09/24/19 09/25/19 09/26/19 09/27/19 23:59 23:59 23:59 23:59 Intake Total 908 1010 1570 540 Balance 908 1010 1570 540 Last Vital Signs Temp Pulse Resp BP Pulse Ox 98.0 F 82 18 126/80 97 09/27/19 08:07 09/27/19 08:07 09/27/19 08:07 09/27/19 08:07 09/26/19 20:16 Active Medications Amantadine HCl (Symmetrel -) 100 mg PO HS [facility] Last Admin: 09/26/19 21:34 Dose: 100 mg Amantadine HCl (Symmetrel -) 200 mg PO AM [facility] Last Admin: 09/27/19 06:27 Dose: 200 mg Apixaban (Eliquis -) 10 mg PO BID [facility] Stop: 10/01/19 10:01 Last Admin: 09/27/19 09:38 Dose: 10 mg Bisacodyl (Dulcolax -) 5 mg PO DAILY PRN PRN Reason: CONSTIPATION Last Admin: 09/23/19 18:24 Dose: 5 mg Docusate Sodium (Colace -) 300 mg PO HS [facility] Last Admin: 09/26/19 21:33 Dose: 300 mg Duloxetine HCl (Cymbalta -) 30 mg PO DAILY [facility] Last Admin: 09/27/19 09:38 Dose: 30 mg Furosemide (Lasix -) 40 mg PO BID@0600,1400 [facility] Last Admin: 09/27/19 06:27 Dose: 40 mg Magnesium Citrate (Citroma -) 300 ml PO Q48H PRN PRN Reason: CONSTIPATION Polyethylene Glycol (Miralax (For Daily Use) -) 17 gm PO DAILY [facility] Last Admin: 09/27/19 09:37 Dose: 17 gm Solifenacin (Vesicare -) 10 mg PO DAILY [facility] Last Admin: 09/27/19 09:38 Dose: 10 mg ENERAL: Awake, alert, and fully oriented, in no acute distress. HEENT: NCAT. PERRLA. Conjunctiva clear. MMM. No JVD LUNGS: Breath sounds diminished @ b/l bases. No wheezes, and no crackles. No accessory muscle use. HEART: Regular rate and rhythm, normal S1 and S2 without murmur, rub or gallop. ABDOMEN: Soft, nontender, not distended, normoactive bowel sounds. EXTREMITIES: 2+ pitting edema b/l LE. 2+ pulses, warm, well-perfused. NEUROLOGICAL: Non-focal PSYCHIATRIC: Cooperative. Good eye contact. Appropriate mood and affect. SKIN: Warm, dry, normal turgor, no rashes or lesions noted, normal capillary refill. Laboratory Results - last 24 hr 09/27/19 09/27/19 09/27/19 06:00 06:00 06:00 WBC 5.3 RBC 5.86 H Hgb 11.0 Hct 36.5 MCV 62.4 L MCH 18.8 L MCHC 30.1 L RDW 20.5 H Plt Count 203 MPV 9.6 PTT (Actin FS) 35.8 Sodium 142 Potassium 3.7 Chloride 106 Carbon Dioxide 31 Anion Gap 6 L BUN 18.0 Creatinine 0.8 Est GFR (CKD-EPI)AfAm 87.80 Est GFR (CKD-EPI)NonAf 75.75 Random Glucose 98 Calcium 8.9 Magnesium 2.3 Problem List - Problems (1) Chronic venous insufficiency of lower extremity Code(s): I87.2 - VENOUS INSUFFICIENCY (CHRONIC) (PERIPHERAL) (2) Multiple sclerosis Code(s): G35 - MULTIPLE SCLEROSIS (3) Pulmonary embolism Code(s): I26.99 - OTHER PULMONARY EMBOLISM WITHOUT ACUTE COR PULMONALE Qualifiers: Pulmonary embolism type: unspecified Chronicity: acute Acute cor pulmonale presence: unspecified Qualified Code(s): I26.99 - Other pulmonary embolism without acute cor pulmonale (4) Pulmonary hypertension, moderate to severe Code(s): I27.20 - PULMONARY HYPERTENSION, UNSPECIFIED (5) Shortness of breath Code(s): R06.02 - SHORTNESS OF BREATH (6) Hypoxemia Code(s): R09.02 - HYPOXEMIA IMP BILATERAL PULMONARY EMBOLI LIKELY ACUTE ON CHRONIC UNPROVOKED SEVERE PULMONARY HTN WITH RV DYSFUNCTION HYPOXEMIA MULTIPLE SCLEROSIS PLAN ELIQUIS 10MG BID X 7 DAYS THEN 5MG BID O2 NEEDED W/U FOR HYPERCOAGULABLE STATE PER HEME DR PETERSEN
[2019-09-27] MEDS: DOCUSATE SODIUM 100 MG CAPSULE (FP) PO SCH (21:48)
[2019-09-28] MEDS: FUROSEMIDE 40 MG TABLET (FP) PO SCH ×2 (06:11→14:56)
[2019-09-28] MEDS: AMANTADINE HCL 100 MG TABLET PO SCH ×2 (06:11→21:59)
[2019-09-28] MEDS ORDERED: PT OWN MED DRAWER 7, Y5N ONE (06:35)
[2019-09-28 06:56] LABS: BASO % 1.6 % (0-2.0); EOS % 4.4 % (0-4.5); HEMATOCRIT 38.9 % (32.4-45.2); HEMOGLOBIN 11.5 GM/dL (10.7-15.3); LYMPH % 42.9 % (8-40); MCHC 29.6 g/dl (32.0-36.0); MEAN CELL VOLUME 63.7 fl (80-96); MEAN PLT VOLUME 9.2 fl (7.5-11.1); MONO % 12.3 % (3.8-10.2); NEUT % 38.8 % (42.8-82.8); PLATELET COUNT 237 K/MM3 (134-434); RBC 6.11 M/mm3 (3.60-5.2); RDW 20.1 % (11.6-15.6); WHITE BLOOD COUNT 5.8 K/mm3 (4.0-10.0)
[2019-09-28 07:02] LABS: MCH 18.8 pg (25.7-33.7)
[2019-09-28 07:26] LABS: ALBUMIN 3.1 g/dl (3.4-5.0); BILIRUBIN,TOTAL 0.6 mg/dL (0.2-1); BLOOD UREA NITROGEN 14.5 mg/dL (7-18); CALCIUM 8.9 mg/dL (8.5-10.1); CREATININE 0.8 mg/dL (0.55-1.3); MAGNESIUM 2.4 mg/dL (1.8-2.4)
--- NOTE | 2019-09-28 07:47 | PN ---
Progress Note, Physician Chief Complaint: SOB is much improved. Ambulated with minimal SOB. Still requiring O2 at times. History of Present Illness: 69 y.o. M PMH multiple sclerosis & chronic venous insufficiency presenting for bilateral pulmonary emboli. - Current Medication List Current Medications: Active Medications Amantadine HCl (Symmetrel -) 100 mg PO HS [facility] Last Admin: 09/27/19 21:49 Dose: 100 mg Amantadine HCl (Symmetrel -) 200 mg PO AM [facility] Last Admin: 09/28/19 06:11 Dose: 200 mg Apixaban (Eliquis -) 10 mg PO BID [facility] Stop: 10/01/19 10:01 Last Admin: 09/27/19 21:48 Dose: 10 mg Apixaban (Eliquis -) 5 mg PO BID [facility] Bisacodyl (Dulcolax -) 5 mg PO DAILY PRN PRN Reason: CONSTIPATION Last Admin: 09/23/19 18:24 Dose: 5 mg Docusate Sodium (Colace -) 300 mg PO HS [facility] Last Admin: 09/27/19 21:48 Dose: 300 mg Duloxetine HCl (Cymbalta -) 30 mg PO DAILY [facility] Last Admin: 09/27/19 09:38 Dose: 30 mg Furosemide (Lasix -) 40 mg PO BID@0600,1400 [facility] Last Admin: 09/28/19 06:11 Dose: 40 mg Magnesium Citrate (Citroma -) 300 ml PO Q48H PRN PRN Reason: CONSTIPATION Polyethylene Glycol (Miralax (For Daily Use) -) 17 gm PO DAILY [facility] Last Admin: 09/27/19 09:37 Dose: 17 gm Solifenacin (Vesicare -) 10 mg PO DAILY [facility] Last Admin: 09/27/19 09:38 Dose: 10 mg - Objective Vital Signs: Vital Signs Temperature 97.9 F 09/28/19 06:00 Pulse Rate 90 09/28/19 06:00 Respiratory Rate 18 09/28/19 06:00 Blood Pressure 139/82 09/28/19 06:00 O2 Sat by Pulse Oximetry (%) 95 09/27/19 20:32 Additional Findings/Remarks: Constitutional: Yes: Well Nourished, No Distress Eyes: Yes: WNL, Conjunctiva Clear, EOM Intact HENT: Yes: WNL, Atraumatic, Normocephalic Neck: Yes: WNL, Supple, Trachea Midline Cardiovascular: Yes: Regular Rate and Rhythm, HR 80-90s Respiratory: Yes: Diminished (at bases), On Nasal O2 (2L) Gastrointestinal: Yes: WNL, Normal Bowel Sounds ...Rectal Exam: Yes: Deferred Genitourinary: Yes: WNL Breast(s): Yes: WNL Musculoskeletal: Yes: WNL Extremities: Yes: WNL Edema: No Edema: LLE: 2+, RLE: 2+ Peripheral Pulses WNL: No Peripheral Pulses: Left Radial: 2+, Right Radial: 2+, Left Doralis Pedis: 1+, Right Dorsalis Pedis: 1+, Left Femoral: 2+, Right Femoral: 2+ Integumentary: Yes: Petechiae (to calves BL) Neurological: Yes: WNL, Alert, Oriented ...Motor Strength: WNL (generalized weakness) Labs: CBC, BMP 09/28/19 05:50 09/28/19 06:00 Problem List - Problems (1) Prophylactic measure Assessment/Plan: FEN Fluids: adequate PO intake Electrolytes: monitor & replete as needed Nutrition: low Na diet DVT high risk started eliquis 10mg bid x 1 week, decrease to 5mg on 10/01 Dispo Maintain as inpatient on tele full code discharge planning-declining SNF. Services requested for home Code(s): Z29.9 - ENCOUNTER FOR PROPHYLACTIC MEASURES, UNSPECIFIED (2) Chronic venous insufficiency of lower extremity Assessment/Plan: chronic venous sufficiency with LE edmea worsening LE edema over past week Dopplers of LE done, negative c/w lasix 40mg bid Code(s): I87.2 - VENOUS INSUFFICIENCY (CHRONIC) (PERIPHERAL) (3) Multiple sclerosis Assessment/Plan: Follows with neurologist for MS as per pt MS has been stable recently, ambulates with cane PT following fall precautions neurology following Code(s): G35 - MULTIPLE SCLEROSIS (4) Pulmonary embolism Assessment/Plan: BL segmental PEs treated with Heparin gtt and converted to Eliquis will need care home anticoagulation with NOAC PE appears unprovoked heme consulation following hypercoagulation w/u in progress--> negative lupus anticoagu;ant, antithromibin III low Right heart strain with severe pul htn Appreciate cardiology consultation supplemental O2 to mainatin SPO2 >88% Code(s): I26.99 - OTHER PULMONARY EMBOLISM WITHOUT ACUTE COR PULMONALE Qualifiers: Pulmonary embolism type: unspecified Chronicity: acute Acute cor pulmonale presence: unspecified Qualified Code(s): I26.99 - Other pulmonary embolism without acute cor pulmonale (5) Shortness of breath Assessment/Plan: minimal dysnpea when ambulating does not met criteria for home O2 Code(s): R06.02 - SHORTNESS OF BREATH (6) Pulmonary hypertension, moderate to severe Assessment/Plan: severe PHtn seen on TTE trops neg cardiology following pulmonary following Code(s): I27.20 - PULMONARY HYPERTENSION, UNSPECIFIED Visit type - Emergency Visit Emergency Visit: Yes ED Registration Date: 09/22/19 Care time: The patient presented to the Emergency Department on the above date and was hospitalized for further evaluation of their emergent condition. - New Patient This patient is new to me today: No - Critical Care Critical Care patient: No - Discharge Referral Referred to [facility] Med P.C.: No
[2019-09-28] MEDS: APIXABAN 5 MG TABLET PO SCH ×2 (09:47→21:58)
[2019-09-28] MEDS: DULoxetine HCL 30 MG CAPSULE.DR PO SCH (09:48)
[2019-09-28] MEDS: SOLIFENACIN SUCCINATE 5 MG TAB PO SCH (09:48)
[2019-09-28] MEDS: POLYETHYLENE GLYCOL 3350 119 GM BTL PO SCH (09:48)
[2019-09-28 10:06] LABS: DRVVT - 75.4 sec (0.0-47.0); DRVVT CONFIRM SECONDS 0.9 ratio (0.8-1.2); dRVVT MIX 51.4 sec (0.0-47.0)
[2019-09-28 10:34] LABS: ANISOCYTOSIS 1+; MACROCYTOSIS 0; PLATELET ESTIMATE NORMAL
--- NOTE | 2019-09-28 11:09 | PN ---
Progress Note (short form) - Note Progress Note: Neurology CHIEF COMPLAINT: dyspnea, LE edema PCP: Dr. Briceno HISTORY OF PRESENT ILLNESS: 69 y.o. M PMH multiple sclerosis & chronic venous insufficiency presenting from PCP's office on day of admission, for dyspnea on exertion and worsening LE edema. The patient stated the dyspnea has been getting progressively worse over the past 2-3 days, prior to admission. The SOB only occurs on exertion and not at rest. She denied associated chest pain. The patient endorses a baseline LE edema but it has been progressively worsening over the past 7-8 days prior to admission. She is mostly sedentary but is able to walk with a cane. Denies recent travel. Of note, the patient he sees Dr. Garces (neurology) for her multiple sclerosis who recently increased her Copaxone dose. BLE vascular study completed , negative of DVT. Chest CTA indicates acute bilateral segmental embolim, possible right heart strain, minimal to mild left lower lobe and bilateral lower lobe groundglass attenuation. ECHO completed, results noted, severe pulmonary hypertension, flattened interventricular septum due RV pressure overload. Troponin elevated 0.04, CPK elevated 299, BNP elevated 4022.7, D- dimer 874. Asked to evaluate regarding MS and gait. Patient on Copaxone and sees Dr. Velasco as outpatient for this. Being treated for PE. Ambulation requires cane which is at bedside and she has antalgic gait which is slow with slight shuffle (but not parkinsonian). May benefit from PT, short term rehab if desired. Reports last fall was in neurologist office over a month ago. She reports improvement in ambulation which she was questioning whether it would be attributed to diuresis and I did discuss that lower extremity edema can impact her ability to walk. She indicated she had walked comfortably from her bed to the bathroom without assistance. She is in the process of being put on Ocrelis for her MS as an outpatient and advised follow-up for this. Is to have MRI as outpatient as well which I reminded her to schedule. She reported plan is for discharge tomorrow, no objection to this. Active Medications Amantadine HCl (Symmetrel -) 100 mg PO HS [facility] Last Admin: 09/27/19 21:49 Dose: 100 mg Amantadine HCl (Symmetrel -) 200 mg PO AM [facility] Last Admin: 09/28/19 06:11 Dose: 200 mg Apixaban (Eliquis -) 10 mg PO BID [facility] Stop: 10/01/19 10:01 Last Admin: 09/28/19 09:47 Dose: 10 mg Apixaban (Eliquis -) 5 mg PO BID [facility] Bisacodyl (Dulcolax -) 5 mg PO DAILY PRN PRN Reason: CONSTIPATION Last Admin: 09/23/19 18:24 Dose: 5 mg Docusate Sodium (Colace -) 300 mg PO HS [facility] Last Admin: 09/27/19 21:48 Dose: 300 mg Duloxetine HCl (Cymbalta -) 30 mg PO DAILY [facility] Last Admin: 09/28/19 09:48 Dose: 30 mg Furosemide (Lasix -) 40 mg PO BID@0600,1400 [facility] Last Admin: 09/28/19 06:11 Dose: 40 mg Magnesium Citrate (Citroma -) 300 ml PO Q48H PRN PRN Reason: CONSTIPATION Polyethylene Glycol (Miralax (For Daily Use) -) 17 gm PO DAILY [facility] Last Admin: 09/28/19 09:48 Dose: 17 gm Solifenacin (Vesicare -) 10 mg PO DAILY [facility] Last Admin: 09/28/19 09:48 Dose: 10 mg PHYSICAL EXAMINATION Vital Signs Period Temp Pulse Resp BP Sys/Rhoades Pulse Ox Last 24 Hr 97.6 F-98.3 F 83-112 16-20 114-139/56-91 93-95 GENERAL: Awake, alert, and fully oriented, in no acute distress. HEENT: NCAT. PERRLA. Conjunctiva clear. MMM. No JVD LUNGS: Breath sounds diminished @ b/l bases. No wheezes, and no crackles. No accessory muscle use. HEART: Regular rate and rhythm, normal S1 and S2 without murmur, rub or gallop. ABDOMEN: Soft, nontender, not distended, normoactive bowel sounds. EXTREMITIES: 2+ pitting edema b/l LE. 2+ pulses, warm, well-perfused. NEUROLOGICAL: Cranial nerves II-XII intact. Normal speech. Normal gait. PSYCHIATRIC: Cooperative. Good eye contact. Appropriate mood and affect. SKIN: Warm, dry, normal turgor, no rashes or lesions noted, normal capillary refill. CBCD WBC 5.8 K/mm3 (4.0-10.0) 09/28/19 05:50 RBC 6.11 M/mm3 (3.60-5.2) H 09/28/19 05:50 Hgb 11.5 GM/dL (10.7-15.3) 09/28/19 05:50 Hct 38.9 % (32.4-45.2) 09/28/19 05:50 MCV 63.7 fl (80-96) L 09/28/19 05:50 MCHC 29.6 g/dl (32.0-36.0) L 09/28/19 05:50 RDW 20.1 % (11.6-15.6) H 09/28/19 05:50 Plt Count 237 K/MM3 (134-434) 09/28/19 05:50 MPV 9.2 fl (7.5-11.1) 09/28/19 05:50 CMP Sodium 142 mmol/L (136-145) 09/28/19 06:00 Potassium 4.0 mmol/L (3.5-5.1) 09/28/19 06:00 Chloride 106 mmol/L (98-107) 09/28/19 06:00 Carbon Dioxide 30 mmol/L (21-32) 09/28/19 06:00 Anion Gap 6 MMOL/L (8-16) L 09/28/19 06:00 BUN 14.5 mg/dL (7-18) 09/28/19 06:00 Creatinine 0.8 mg/dL (0.55-1.3) 09/28/19 06:00 Random Glucose 101 mg/dL (74-106) 09/28/19 06:00 Calcium 8.9 mg/dL (8.5-10.1) 09/28/19 06:00 Total Bilirubin 0.6 mg/dL (0.2-1) 09/28/19 06:00 AST 12 U/L (15-37) L 09/28/19 06:00 ALT 19 U/L (13-61) 09/28/19 06:00 Alkaline Phosphatase 85 U/L (45-117) 09/28/19 06:00 Total Protein 6.0 g/dl (6.4-8.2) L 09/28/19 06:00 Albumin 3.1 g/dl (3.4-5.0) L 09/28/19 06:00 CARDIAC ENZYMES Creatine Kinase 299 U/L (26-192) H 09/22/19 15:30 Troponin I 0.04 ng/ml (0.00-0.05) 09/22/19 15:30 ASSESSMENT/PLAN 69 y.o. M H multiple sclerosis & chronic venous insufficiency presenting from PCP's office on day of admission, for dyspnea on exertion and worsening LE edema. The patient stated the dyspnea has been getting progressively worse over the past 2-3 days prior to admission. The SOB only occurs on exertion and not at rest. She denied associated chest pain. The patient endorses a baseline LE edema but it has been progressively worsening over the past 7-8 days prior to admission. She is mostly sedentary but is able to walk with a cane. Denies recent travel. Of note, the patient he sees Dr. Garces (neurology) for her multiple sclerosis who recently increased her Copaxone dose. BLE vascular study completed , negative of DVT. Chest CTA indicates acute bilateral segmental embolim, possible right heart strain, minimal to mild left lower lobe and bilateral lower lobe groundglass attenuation. ECHO completed, results noted, severe pulmonary hypertension, flattened interventricular septum due RV pressure overload. Troponin elevated 0.04, CPK elevated 299, BNP elevated 4022.7, D- dimer 874. Ambulation requires cane which is at bedside and she has antalgic gait which is slow with slight shuffle (but not parkinsonian). May benefit from PT, short term rehab if desired. Reports last fall was in neurologist office over a month ago. Continue treatment for PE. Should follow up with neurologist, continue current dose of copaxone, would not make major changes right now and best to have her neurologist consider further adjustments. She indicated she had walked comfortably from her bed to the bathroom without assistance. She is in the process of being put on Ocrelis for her MS as an outpatient and advised follow-up for this. Fall precautions, continue use of cane and possibly walker which she also has. Is to have MRI as outpatient as well which I reminded her to schedule. She reported plan is for discharge tomorrow, no objection to this.
--- NOTE | 2019-09-28 11:15 | PN ---
Progress Note (short form) - Note Progress Note: OOB to chair on NC O2. Reports breathing feels overall better. Less SOB and no CP. Intake & Output 09/25/19 09/26/19 09/27/19 09/28/19 23:59 23:59 23:59 23:59 Intake Total 1010 1570 1974 200 Balance 1010 1570 1975 200 Last Vital Signs Temp Pulse Resp BP Pulse Ox 97.9 F 86 16 119/73 95 09/28/19 09:21 09/28/19 09:21 09/28/19 09:21 09/28/19 09:21 09/27/19 20:32 Active Medications Amantadine HCl (Symmetrel -) 100 mg PO HS [facility] Last Admin: 09/27/19 21:49 Dose: 100 mg Amantadine HCl (Symmetrel -) 200 mg PO AM [facility] Last Admin: 09/28/19 06:11 Dose: 200 mg Apixaban (Eliquis -) 10 mg PO BID [facility] Stop: 10/01/19 10:01 Last Admin: 09/28/19 09:47 Dose: 10 mg Apixaban (Eliquis -) 5 mg PO BID [facility] Bisacodyl (Dulcolax -) 5 mg PO DAILY PRN PRN Reason: CONSTIPATION Last Admin: 09/23/19 18:24 Dose: 5 mg Docusate Sodium (Colace -) 300 mg PO HS [facility] Last Admin: 09/27/19 21:48 Dose: 300 mg Duloxetine HCl (Cymbalta -) 30 mg PO DAILY [facility] Last Admin: 09/28/19 09:48 Dose: 30 mg Furosemide (Lasix -) 40 mg PO BID@0600,1400 [facility] Last Admin: 09/28/19 06:11 Dose: 40 mg Magnesium Citrate (Citroma -) 300 ml PO Q48H PRN PRN Reason: CONSTIPATION Polyethylene Glycol (Miralax (For Daily Use) -) 17 gm PO DAILY [facility] Last Admin: 09/28/19 09:48 Dose: 17 gm Solifenacin (Vesicare -) 10 mg PO DAILY [facility] Last Admin: 09/28/19 09:48 Dose: 10 mg ENERAL: Awake, alert, and fully oriented, in no acute distress. HEENT: NCAT. PERRLA. Conjunctiva clear. MMM. No JVD LUNGS: Breath sounds diminished @ b/l bases. No wheezes, and no crackles. No accessory muscle use. HEART: Regular rate and rhythm, normal S1 and S2 without murmur, rub or gallop. ABDOMEN: Soft, nontender, not distended, normoactive bowel sounds. EXTREMITIES: 2+ pitting edema b/l LE. 2+ pulses, warm, well-perfused. NEUROLOGICAL: Non-focal PSYCHIATRIC: Cooperative. Good eye contact. Appropriate mood and affect. SKIN: Warm, dry, normal turgor, no rashes or lesions noted, normal capillary refill. Laboratory Results - last 24 hr 09/25/19 09/28/19 09/28/19 06:45 05:50 06:00 WBC 5.8 RBC 6.11 H Hgb 11.5 Hct 38.9 MCV 63.7 L MCH 18.8 L MCHC 29.6 L RDW 20.1 H Plt Count 237 MPV 9.2 Absolute Neuts (auto) 2.3 Neutrophils % 38.8 L D Lymphocytes % 42.9 H D Monocytes % 12.3 H Eosinophils % 4.4 D Basophils % 1.6 Nucleated RBC % 0 Hypochromia 2+ Platelet Estimate Normal Polychromasia 2+ Poikilocytosis 1+ Anisocytosis 1+ Microcytosis 1+ Macrocytosis 0 LA PTT Baseline 40.4 dRVVT Confirm Interp 0.9 dRVVT Mixing Study 51.4 H Lupus Anticoag Comment Comment: Func Antithrombin III 66 L Sodium 142 Potassium 4.0 Chloride 106 Carbon Dioxide 30 Anion Gap 6 L BUN 14.5 Creatinine 0.8 Est GFR (CKD-EPI)AfAm 87.80 Est GFR (CKD-EPI)NonAf 75.75 Random Glucose 101 Calcium 8.9 Magnesium 2.4 Total Bilirubin 0.6 AST 12 L ALT 19 Alkaline Phosphatase 85 Total Protein 6.0 L Albumin 3.1 L Problem List - Problems (1) Chronic venous insufficiency of lower extremity Code(s): I87.2 - VENOUS INSUFFICIENCY (CHRONIC) (PERIPHERAL) (2) Multiple sclerosis Code(s): G35 - MULTIPLE SCLEROSIS (3) Pulmonary embolism Code(s): I26.99 - OTHER PULMONARY EMBOLISM WITHOUT ACUTE COR PULMONALE Qualifiers: Pulmonary embolism type: unspecified Chronicity: acute Acute cor pulmonale presence: unspecified Qualified Code(s): I26.99 - Other pulmonary embolism without acute cor pulmonale (4) Pulmonary hypertension, moderate to severe Code(s): I27.20 - PULMONARY HYPERTENSION, UNSPECIFIED (5) Shortness of breath Code(s): R06.02 - SHORTNESS OF BREATH (6) Hypoxemia Code(s): R09.02 - HYPOXEMIA IMP BILATERAL PULMONARY EMBOLI LIKELY ACUTE ON CHRONIC UNPROVOKED SEVERE PULMONARY HTN WITH RV DYSFUNCTION HYPOXEMIA MULTIPLE SCLEROSIS PLAN ELIQUIS 10MG BID X 7 DAYS THEN 5MG BID O2 NEEDED W/U FOR HYPERCOAGULABLE STATE PER HEME DC PLANNING DR PETERSEN
--- NOTE | 2019-09-28 19:00 | PN ---
Progress Note (short form) - Note Progress Note: Patient seen and examined Feels much improved Last Vital Signs Temp Pulse Resp BP Pulse Ox 97.9 F 81 18 124/82 98 09/28/19 22:00 09/28/19 22:00 09/28/19 22:00 09/28/19 22:00 09/28/19 20:40 Cor: RSR, No murmurs, No gallops Lungs: Clear to P&A Abd: Soft, Normal bowel sounds, No organomegaly Ext:No significant edema Labs/meds reviewed A/P 69 year old female with a PMH of MS and chronic venous insufficiency. She presents now from her PCP's office with TRONCOSO and worsening LE edema. The patient states the dyspnea has been getting progressively worse over the past 2-[address] scan shows bilateral segmental PE's. LE Doppler negative for a DVT Echocardiogram 09/23/2019: RV pressure overload RV is moderately dilated Severe pulmonary HTN Pulmonary Embolism Evidence of right heart strain hemodynamically stable, Unprovoked, PE (?? relatively sedentary form MS) Switched from heparin to eliquis 10mg bid was seen by neurology -- needs germaine---rediscussed this with patient family h/o cancer -- gave her contact no. for genetics counsellor to f/u needs age appropriate cancer screening -- colonsocopy/mammogram/technical artist screening
[2019-09-28] MEDS: DOCUSATE SODIUM 100 MG CAPSULE (FP) PO SCH (22:00)
[2019-09-29] MEDS: FUROSEMIDE 40 MG TABLET (FP) PO SCH (06:07)
[2019-09-29] MEDS: AMANTADINE HCL 100 MG TABLET PO SCH (06:07)
[2019-09-29 07:41] LABS: BASO % 1.7 % (0-2.0); EOS % 4.3 % (0-4.5); HEMOGLOBIN 11.9 GM/dL (10.7-15.3); LYMPH % 41.4 % (8-40); MCH 18.7 pg (25.7-33.7); MCHC 29.6 g/dl (32.0-36.0); MEAN CELL VOLUME 63.1 fl (80-96); MONO % 11.6 % (3.8-10.2); PLATELET COUNT 254 K/MM3 (134-434); RBC 6.34 M/mm3 (3.60-5.2); RDW 20.6 % (11.6-15.6); WHITE BLOOD COUNT 5.3 K/mm3 (4.0-10.0)
[2019-09-29 07:59] LABS: ALBUMIN 3.4 g/dl (3.4-5.0); BILIRUBIN,TOTAL 0.9 mg/dL (0.2-1); CALCIUM 9.6 mg/dL (8.5-10.1); MAGNESIUM 2.6 mg/dL (1.8-2.4); POTASSIUM 4.5 mmol/L (3.5-5.1); TOT PROT 6.6 g/dl (6.4-8.2)
--- NOTE | 2019-09-29 08:40 | PN ---
Progress Note (short form) - Note Progress Note: Neurology CHIEF COMPLAINT: dyspnea, LE edema PCP: Dr. Briceno HISTORY OF PRESENT ILLNESS: 69 y.o. M PMH multiple sclerosis & chronic venous insufficiency presenting from PCP's office on day of admission, for dyspnea on exertion and worsening LE edema. The patient stated the dyspnea has been getting progressively worse over the past 2-3 days, prior to admission. The SOB only occurs on exertion and not at rest. She denied associated chest pain. The patient endorses a baseline LE edema but it has been progressively worsening over the past 7-8 days prior to admission. She is mostly sedentary but is able to walk with a cane. Denies recent travel. Of note, the patient he sees Dr. Garces (neurology) for her multiple sclerosis who recently increased her Copaxone dose. BLE vascular study completed , negative of DVT. Chest CTA indicates acute bilateral segmental embolim, possible right heart strain, minimal to mild left lower lobe and bilateral lower lobe groundglass attenuation. ECHO completed, results noted, severe pulmonary hypertension, flattened interventricular septum due RV pressure overload. Troponin elevated 0.04, CPK elevated 299, BNP elevated 4022.7, D- dimer 874. Asked to evaluate regarding MS and gait. Patient on Copaxone and sees Dr. Velasco as outpatient for this. Being treated for PE. Ambulation requires cane which is at bedside and she has antalgic gait which is slow with slight shuffle (but not parkinsonian). May benefit from PT, short term rehab if desired. Reports last fall was in neurologist office over a month ago. She reports improvement in ambulation which she was questioning whether it would be attributed to diuresis and I did discuss that lower extremity edema can impact her ability to walk. She is in the process of being put on Ocrelis for her MS as an outpatient and advised follow-up for this. Is to have MRI as outpatient as well which I reminded her to schedule. She reported plan is for discharge today. Advised follow-up with her outpatient nneurologist who has been managing her multiple sclerosis. She will be seeing her primary care physician , Dr. Briceno, and if other [id number] issues arise, informed her that she certainly can see me in the same office. Active Medications Amantadine HCl (Symmetrel -) 100 mg PO HS [facility] Last Admin: 09/28/19 21:59 Dose: 100 mg Amantadine HCl (Symmetrel -) 200 mg PO AM [facility] Last Admin: 09/29/19 06:07 Dose: 200 mg Apixaban (Eliquis -) 10 mg PO BID [facility] Stop: 10/01/19 10:01 Last Admin: 09/28/19 21:58 Dose: 10 mg Apixaban (Eliquis -) 5 mg PO BID [facility] Bisacodyl (Dulcolax -) 5 mg PO DAILY PRN PRN Reason: CONSTIPATION Last Admin: 09/23/19 18:24 Dose: 5 mg Docusate Sodium (Colace -) 300 mg PO HS [facility] Last Admin: 09/28/19 22:00 Dose: Not Given Duloxetine HCl (Cymbalta -) 30 mg PO DAILY [facility] Last Admin: 09/28/19 09:48 Dose: 30 mg Furosemide (Lasix -) 40 mg PO BID@0600,1400 [facility] Last Admin: 09/29/19 06:07 Dose: 40 mg Magnesium Citrate (Citroma -) 300 ml PO Q48H PRN PRN Reason: CONSTIPATION Polyethylene Glycol (Miralax (For Daily Use) -) 17 gm PO DAILY [facility] Last Admin: 09/28/19 09:48 Dose: 17 gm Solifenacin (Vesicare -) 10 mg PO DAILY [facility] Last Admin: 09/28/19 09:48 Dose: 10 mg PHYSICAL EXAMINATION Vital Signs Period Temp Pulse Resp BP Sys/Rhoades Pulse Ox Last 24 Hr 97.4 F-97.9 F 81-92 16-18 119-145/73-98 95-98 GENERAL: Awake, alert, and fully oriented, in no acute distress. HEENT: NCAT. PERRLA. Conjunctiva clear. MMM. No JVD LUNGS: Breath sounds diminished @ b/l bases. No wheezes, and no crackles. No accessory muscle use. HEART: Regular rate and rhythm, normal S1 and S2 without murmur, rub or gallop. ABDOMEN: Soft, nontender, not distended, normoactive bowel sounds. EXTREMITIES: 2+ pitting edema b/l LE. 2+ pulses, warm, well-perfused. NEUROLOGICAL: Cranial nerves II-XII intact. Normal speech. Normal gait. PSYCHIATRIC: Cooperative. Good eye contact. Appropriate mood and affect. SKIN: Warm, dry, normal turgor, no rashes or lesions noted, normal capillary refill. CBCD WBC 5.3 K/mm3 (4.0-10.0) 09/29/19 06:35 RBC 6.34 M/mm3 (3.60-5.2) H 09/29/19 06:35 Hgb 11.9 GM/dL (10.7-15.3) 09/29/19 06:35 Hct 40.0 % (32.4-45.2) 09/29/19 06:35 MCV 63.1 fl (80-96) L 09/29/19 06:35 MCHC 29.6 g/dl (32.0-36.0) L 09/29/19 06:35 RDW 20.6 % (11.6-15.6) H 09/29/19 06:35 Plt Count 254 K/MM3 (134-434) 09/29/19 06:35 MPV 9.0 fl (7.5-11.1) 09/29/19 06:35 CMP Sodium 142 mmol/L (136-145) 09/29/19 06:35 Potassium 4.5 mmol/L (3.5-5.1) 09/29/19 06:35 Chloride 105 mmol/L (98-107) 09/29/19 06:35 Carbon Dioxide 33 mmol/L (21-32) H 09/29/19 06:35 Anion Gap 4 MMOL/L (8-16) L 09/29/19 06:35 BUN 19.0 mg/dL (7-18) H 09/29/19 06:35 Creatinine 1.0 mg/dL (0.55-1.3) 09/29/19 06:35 Random Glucose 107 mg/dL (74-106) H 09/29/19 06:35 Calcium 9.6 mg/dL (8.5-10.1) 09/29/19 06:35 Total Bilirubin 0.9 mg/dL (0.2-1) 09/29/19 06:35 AST 13 U/L (15-37) L 09/29/19 06:35 ALT 21 U/L (13-61) 09/29/19 06:35 Alkaline Phosphatase 91 U/L (45-117) 09/29/19 06:35 Total Protein 6.6 g/dl (6.4-8.2) 09/29/19 06:35 Albumin 3.4 g/dl (3.4-5.0) 09/29/19 06:35 CARDIAC ENZYMES Creatine Kinase 299 U/L (26-192) H 09/22/19 15:30 Troponin I 0.04 ng/ml (0.00-0.05) 09/22/19 15:30 ASSESSMENT/PLAN 69 y.o. M PMH multiple sclerosis & chronic venous insufficiency presenting from PCP's office on day of admission, for dyspnea on exertion and worsening LE edema. The patient stated the dyspnea has been getting progressively worse over the past 2-3 days prior to admission. The SOB only occurs on exertion and not at rest. She denied associated chest pain. The patient endorses a baseline LE edema but it has been progressively worsening over the past 7-8 days prior to admission. She is mostly sedentary but is able to walk with a cane. Denies recent travel. Of note, the patient he sees Dr. Garces (neurology) for her multiple sclerosis who recently increased her Copaxone dose. BLE vascular study completed , negative of DVT. Chest CTA indicates acute bilateral segmental embolim, possible right heart strain, minimal to mild left lower lobe and bilateral lower lobe groundglass attenuation. ECHO completed, results noted, severe pulmonary hypertension, flattened interventricular septum due RV pressure overload. Troponin elevated 0.04, CPK elevated 299, BNP elevated 4022.7, D- dimer 874. Ambulation requires cane which is at bedside and she has antalgic gait which is slow with slight shuffle (but not parkinsonian). May benefit from PT, short term rehab if desired. Reports last fall was in neurologist office over a month ago. Continue treatment for PE. Should follow up with neurologist, continue current dose of copaxone, would not make major changes right now and best to have her neurologist consider further adjustments. She indicated she had walked comfortably from her bed to the bathroom without assistance. She reported plan is for discharge today. Advised follow-up with her outpatient nneurologist who has been managing her multiple sclerosis. She will be seeing her primary care physician, Dr. Briceno, and if other [id number] issues arise , informed her that she certainly can see me in the same office.
[2019-09-29] MEDS ORDERED: PT OWN MED DRAWER 7, Y5N ONE (09:05)
[2019-09-29] MEDS: APIXABAN 5 MG TABLET PO SCH (10:43)
[2019-09-29] MEDS: SOLIFENACIN SUCCINATE 5 MG TAB PO SCH (10:44)
[2019-09-29] MEDS: DULoxetine HCL 30 MG CAPSULE.DR PO SCH (10:44)
[2019-09-29 10:48] VITALS: BP 125/77; PULSE 83; TEMP 98
[2019-09-29] MEDS: POLYETHYLENE GLYCOL 3350 119 GM BTL PO SCH (10:48)
--- NOTE | 2019-09-29 11:59 | PN ---
Progress Note, Physician History of Present Illness: PULMONARY ALERT,OOB-CHAIR,-CP,-SOB - Current Medication List Current Medications: Active Medications Amantadine HCl (Symmetrel -) 100 mg PO HS [facility] Last Admin: 09/28/19 21:59 Dose: 100 mg Amantadine HCl (Symmetrel -) 200 mg PO AM [facility] Last Admin: 09/29/19 06:07 Dose: 200 mg Apixaban (Eliquis -) 10 mg PO BID [facility] Stop: 10/01/19 10:01 Last Admin: 09/29/19 10:43 Dose: 10 mg Apixaban (Eliquis -) 5 mg PO BID [facility] Bisacodyl (Dulcolax -) 5 mg PO DAILY PRN PRN Reason: CONSTIPATION Last Admin: 09/23/19 18:24 Dose: 5 mg Docusate Sodium (Colace -) 300 mg PO [facility] Last Admin: 09/28/19 22:00 Dose: Not Given Duloxetine HCl (Cymbalta -) 30 mg PO DAILY [facility] Last Admin: 09/29/19 10:44 Dose: 30 mg Furosemide (Lasix -) 40 mg PO BID@0600,1400 [facility] Last Admin: 09/29/19 06:07 Dose: 40 mg Magnesium Citrate (Citroma -) 300 ml PO Q48H PRN PRN Reason: CONSTIPATION Polyethylene Glycol (Miralax (For Daily Use) -) 17 gm PO DAILY [facility] Last Admin: 09/29/19 10:48 Dose: Not Given Solifenacin (Vesicare -) 10 mg PO DAILY [facility] Last Admin: 09/29/19 10:44 Dose: 10 mg - Objective Vital Signs: Vital Signs Temperature 98.0 F 09/29/19 10:47 Pulse Rate 83 09/29/19 10:47 Respiratory Rate 16 09/29/19 10:47 Blood Pressure 125/77 09/29/19 10:47 O2 Sat by Pulse Oximetry (%) 98 09/28/19 20:40 Constitutional: Yes: Well Nourished, Calm Eyes: Yes: WNL HENT: Yes: WNL Neck: Yes: WNL Cardiovascular: Yes: Regular Rate and Rhythm, S1, S2 Respiratory: Yes: CTA Bilaterally Gastrointestinal: Yes: Normal Bowel Sounds, Soft Extremities: Yes: WNL Edema: Yes Labs: CBC, BMP 09/29/19 06:35 09/29/19 06:35 Problem List - Problems (1) Chronic venous insufficiency of lower extremity Code(s): I87.2 - VENOUS INSUFFICIENCY (CHRONIC) (PERIPHERAL) (2) Multiple sclerosis Code(s): G35 - MULTIPLE SCLEROSIS (3) Pulmonary embolism Code(s): I26.99 - OTHER PULMONARY EMBOLISM WITHOUT ACUTE COR PULMONALE Qualifiers: Pulmonary embolism type: unspecified Chronicity: acute Acute cor pulmonale presence: unspecified Qualified Code(s): I26.99 - Other pulmonary embolism without acute cor pulmonale (4) Pulmonary hypertension, moderate to severe Code(s): I27.20 - PULMONARY HYPERTENSION, UNSPECIFIED (5) Shortness of breath Code(s): R06.02 - SHORTNESS OF BREATH (6) Hypoxemia Code(s): R09.02 - HYPOXEMIA Assessment/Plan IMP BILATERAL PULMONARY EMBOLI LIKELY ACUTE ON CHRONIC UNPROVOKED SEVERE PULMONARY HTN WITH RV DYSFUNCTION HYPOXEMIA MULTIPLE SCLEROSIS PLAN AC O2 NEEDED F/U ECHO W/U FOR HYPERCOAGULABLE STATE OUTPATIENT DR PARADA Problem List - Problems (1) Chronic venous insufficiency of lower extremity Code(s): I87.2 - VENOUS INSUFFICIENCY (CHRONIC) (PERIPHERAL) (2) Multiple sclerosis Code(s): G35 - MULTIPLE SCLEROSIS (3) Pulmonary embolism Code(s): I26.99 - OTHER PULMONARY EMBOLISM WITHOUT ACUTE COR PULMONALE Qualifiers: Pulmonary embolism type: unspecified Chronicity: acute Acute cor pulmonale presence: unspecified Qualified Code(s): I26.99 - Other pulmonary embolism without acute cor pulmonale (4) Pulmonary hypertension, moderate to severe Code(s): I27.20 - PULMONARY HYPERTENSION, UNSPECIFIED (5) Shortness of breath Code(s): R06.02 - SHORTNESS OF BREATH (6) Hypoxemia Code(s): R09.02 - HYPOXEMIA
--- NOTE | 2019-09-29 12:23 | DS ---
Physical Exam: SUBJECTIVE: SOB is much improved. Ambulated with minimal SOB. Still requiring O2 at times. OBJECTIVE: Patient is a 69 y.o. M PMHx multiple sclerosis & chronic venous insufficiency presenting for bilateral pulmonary emboli. Patient initially treated with heparin and transitioned to eliquis. She will need workup as an outpatient with hematology. Vital Signs Period Temp Pulse Resp BP Sys/Rhoades Pulse Ox Last 24 Hr 97.4 F-98.0 F 81-92 16-18 124-145/77-98 98 PHYSICAL EXAM Constitutional: Yes: Well Nourished, No Distress Eyes: Yes: WNL, Conjunctiva Clear, EOM Intact HENT: Yes: WNL, Atraumatic, Normocephalic Neck: Yes: WNL, Supple, Trachea Midline Cardiovascular: Yes: Regular Rate and Rhythm, HR 80-90s Respiratory: Yes: Diminished (at bases), On Nasal O2 (2L) Gastrointestinal: Yes: WNL, Normal Bowel Sounds ...Rectal Exam: Yes: Deferred Genitourinary: Yes: WNL Breast(s): Yes: WNL Musculoskeletal: Yes: WNL Extremities: Yes: WNL Edema: No Edema: LLE: 2+, RLE: 2+ Peripheral Pulses WNL: No Peripheral Pulses: Left Radial: 2+, Right Radial: 2+, Left Doralis Pedis: 1+, Right Dorsalis Pedis: 1+, Left Femoral: 2+, Right Femoral: 2+ Integumentary: Yes: Petechiae (to calves BL) Neurological: Yes: WNL, Alert, Oriented ...Motor Strength: WNL (generalized weakness) LABS Laboratory Results - last 24 hr 09/29/19 09/29/19 06:35 06:35 WBC 5.3 RBC 6.34 H Hgb 11.9 Hct 40.0 MCV 63.1 L MCH 18.7 L MCHC 29.6 L RDW 20.6 H Plt Count 254 MPV 9.0 Absolute Neuts (auto) 2.2 Neutrophils % 41.0 L Lymphocytes % 41.4 H Monocytes % 11.6 H Eosinophils % 4.3 Basophils % 1.7 Nucleated RBC % 0 Sodium 142 Potassium 4.5 Chloride 105 Carbon Dioxide 33 H Anion Gap 4 L BUN 19.0 H Creatinine 1.0 Est GFR (CKD-EPI)AfAm 67.04 Est GFR (CKD-EPI)NonAf 57.84 Random Glucose 107 H Calcium 9.6 Magnesium 2.6 H Total Bilirubin 0.9 AST 13 L ALT 21 Alkaline Phosphatase 91 Total Protein 6.6 Albumin 3.4 HOSPITAL COURSE: Date of Admission:09/22/19 Date of Discharge: 09/29/19 Minutes to complete discharge: 45 Discharge Summary Problems reviewed: Yes Reason For Visit: PULMONARY EMBOLISM Current Active Problems Chronic venous insufficiency of lower extremity (Acute) Hypoxemia (Acute) Multiple sclerosis (Acute) Prophylactic measure (Acute) Pulmonary embolism (Acute) Pulmonary hypertension, moderate to severe (Acute) Shortness of breath (Acute) Condition: Improved - Instructions Diet, Activity, Other Instructions: DISCHARGE YOUR VISIT You came to the hospital because you were short of breath and diagnosed with Pulmonary Emboli in both lungs. You were treated with heparin (a blood thinner) in the IV and improved. You were sen by the cardiology and the treasurer. The blood thinner was then changed to pills-ELIQUIS. Take 10mg twice a day until 10/01. Then take 5 mg (1/2 pill of 10mg) twice a day until told otherwise. Take all your other medications are previously prescribed. Follow with your home neurologist for your MS. MEDICATIONS Please continue to take your home medications as prescribed. There was no changes NEW ELIQUIS 10mg twice a day until 10/01 ---> then 5mg twice a day DIET Continue your home diet ADDITIONAL CARE Please make an appointment to see your primary care provider, Dr Briceno 1 week from today. ADDITIONAL INFORMATION Please call 911 or come directly to the emergency department if you experience unusual headache, vision change, shortness of breath, chest pain, numbness, tingling, loss of alertness/awareness, loss of function, unusual bleeding or any alarming symptoms. Thank you for allowing me to care for you. Hiro Murguia, [facility], [facility] [phone] Referrals: Teri Briceno MD [Primary Care Provider] - Yulisa Licona MD [Staff Physician] - Jovi Joshi MD [Staff Physician] - Disposition: VNS/HOME HEALTH CARE - Home Medications Comprehensive Discharge Medication List: Ambulatory Orders Amantadine HCl [Amantadine] 100 mg PO HS 09/22/19 Amantadine HCl [Amantadine] 200 mg PO AM 09/22/19 Duloxetine HCl [Cymbalta] 30 mg PO DAILY 09/22/19 Solifenacin Succinate [Vesicare -] 10 mg PO DAILY 09/22/19 Glatiramer Acetate [Copaxone] 40 mg SQ 09/23/19 Apixaban [Eliquis -] 10 mg PO BID #60 tablet 09/28/19 Bisacodyl [Bisacodyl -] 5 mg PO DAILY PRN tablet. 09/28/19 Docusate Sodium [Colace -] 300 mg PO HS capsule 09/28/19 Furosemide [Lasix -] 40 mg PO BID@0600,1400 #60 tablet 09/28/19 Magnesium Citrate [Citroma -] 300 ml PO Q48H PRN bottle 09/28/19 Polyethylene Glycol 3350 [Miralax 119 gm Btl -] 17 gm PO DAILY bottle 09/28/19 Solifenacin Succinate [Vesicare -] 10 mg PO DAILY tab 09/28/19 Problem List - Problems (1) Multiple sclerosis Code(s): G35 - MULTIPLE SCLEROSIS (2) Prophylactic measure Code(s): Z29.9 - ENCOUNTER FOR PROPHYLACTIC MEASURES, UNSPECIFIED (3) Pulmonary embolism Assessment/Plan: patient with evidence of right heart strain. hemodynamically stable. provoked vs unprovoked PE switched from heparin to eliquis 10mg bid patient for outpatient workup with hematology Code(s): I26.99 - OTHER PULMONARY EMBOLISM WITHOUT ACUTE COR PULMONALE Qualifiers: Pulmonary embolism type: unspecified Chronicity: acute Acute cor pulmonale presence: unspecified Qualified Code(s): I26.99 - Other pulmonary embolism without acute cor pulmonale (4) Pulmonary hypertension, moderate to severe Code(s): I27.20 - PULMONARY HYPERTENSION, UNSPECIFIED This patient is new to me today: Yes Date on this admission: 10/17/19 Emergency Visit: Yes ED Registration Date: 09/22/19 Care time: The patient presented to the Emergency Department on the above date and was hospitalized for further evaluation of their emergent condition. Critical Care patient: No - Discharge Referral Referred to [facility] Med P.C.: No
[2019-10-01] MEDS ORDERED: APIXABAN 5 MG TABLET PO SCH (22:00)
== END 2019-09-29 13:19 | disposition home health service (06) | DRG 175 ==
LOC: JER 13:22 → JERBED 18:14 → J4S 09-23 14:52
PROVIDERS: ADMIT Internal Medicine; ATTEND Nurse Practitioner Family
DX: I26.09 Other pulmonary embolism with acute cor pulmonale (principal); G35 Multiple sclerosis; I87.2 Venous insufficiency (chronic) (peripheral); I27.20 Pulmonary hypertension, unspecified; R06.02 Shortness of breath; R09.02 Hypoxemia; R00.0 Tachycardia, unspecified
CPT/HCPCS: 36415; 36600; 71045-TC-FY; 71275-TC; 80048; 80053; 81003; 82550; 82553; 82803; 83735; 83880; 84484; 85025; 85027; 85300; 85303; 85379; 85613; 85730; 85732; 93005; 93010; 93306-TC; 93970-TC; 94761; 97116-GP; 97162-GP; 99285-25; J1644; Q9967

== ENCOUNTER 2022-11-20 08:11 | Inpatient (IN) | payer OTHER ==
[2022-11-20 09:23] LABS: BASO % 1.1 % (0-2.0); EOS % 2.1 % (0-4.5); HEMATOCRIT 52.4 % (32.4-45.2); HEMOGLOBIN 17.4 GM/dL (10.7-15.3); LYMPH % 27.7 % (8-40); MCH 29.7 pg (25.7-33.7); MCHC 33.2 g/dl (32.0-36.0); MEAN CELL VOLUME 89.4 fl (80-96); MEAN PLT VOLUME 9.4 fl (7.5-11.1); MONO % 10.4 % (3.8-10.2); NEUT % 58.7 % (42.8-82.8); PLATELET COUNT 145 10^3/uL (134-434); RBC 5.86 M/mm3 (3.60-5.2); RDW 15.7 % (11.6-15.6); WHITE BLOOD COUNT 5.7 K/mm3 (4.0-10.0)
[2022-11-20 09:47] LABS: ALBUMIN 3.6 g/dl (3.4-5.0); CALCIUM 9.8 mg/dL (8.5-10.1)
[2022-11-20 09:48] LABS: BLOOD UREA NITROGEN 18.9 mg/dL (7-18); MAGNESIUM 2.3 mg/dL (1.8-2.4)
[2022-11-20 09:52] LABS: CREATININE 0.7 mg/dL (0.55-1.3)
[2022-11-20 09:53] LABS: TOT PROT 7.7 g/dl (6.4-8.2)
[2022-11-20 09:54] LABS: BILIRUBIN,TOTAL 1.6 mg/dL (0.2-1)
[2022-11-20 09:56] LABS: N-TERMINAL BNP 4245.5 pg/ml (5-125)
[2022-11-20 11:42] LABS: URINE APPEARANCE CLEAR; URINE BILIRUBIN NEGATIVE (NEGATIVE); URINE COLOR YELLOW; URINE GLUCOSE (UA) NEGATIVE (NEGATIVE); URINE KETONE NEGATIVE (NEGATIVE); URINE LEUK ESTERASE NEGATIVE (NEGATIVE); URINE NITRITE NEGATIVE (NEGATIVE); URINE PROTEIN NEGATIVE (NEGATIVE); URINE UROBILINOGEN 0.2 mg/dL (0.2-1.0)
[2022-11-20] MEDS ORDERED: FUROSEMIDE 40 MG/4 ML INJECTABLE VIAL IVPUSH ONE (12:42)
[2022-11-20] MEDS ORDERED: CEFAZOLIN 500 MG in DEXTROSE 5%-WATER - 50 ML IVPB SCH (12:45)
[2022-11-20] MEDS ORDERED: APIXABAN 2.5 MG TABLET ONE (12:49)
[2022-11-20] MEDS ORDERED: FUROSEMIDE 40 MG/4 ML INJECTABLE VIAL ONE (12:50)
[2022-11-20] MEDS ORDERED: ceFAZolin SODIUM 1 GM VIAL ONE (12:50)
[2022-11-20] MEDS: APIXABAN 2.5 MG TABLET PO SCH ×2 (13:07→21:28)
[2022-11-20] MEDS ORDERED: DULoxetine HCL 30 MG CAPSULE.DR PO ONE (13:28)
[2022-11-20] MEDS: DULoxetine HCL 30 MG CAPSULE.DR PO SCH (13:34)
[2022-11-20] MEDS: AMANTADINE HCL 100 MG TABLET PO SCH ×2 (14:07→21:47)
[2022-11-20] MEDS: CEFAZOLIN 1 GM in DEXTROSE 5%-WATER - 50 ML IVPB SCH ×2 (17:25)
[2022-11-21] MEDS: CEFAZOLIN 1 GM in DEXTROSE 5%-WATER - 50 ML IVPB SCH ×3 (02:01→17:12)
[2022-11-21] MEDS: AMANTADINE HCL 100 MG TABLET PO SCH ×3 (05:27→22:52)
[2022-11-21 08:48] LABS: HEMATOCRIT 44.1 % (32.4-45.2); HEMOGLOBIN 14.7 GM/dL (10.7-15.3); MCH 29.4 pg (25.7-33.7); MCHC 33.2 g/dl (32.0-36.0); MEAN CELL VOLUME 88.6 fl (80-96); MEAN PLT VOLUME 8.7 fl (7.5-11.1); PLATELET COUNT 144 10^3/uL (134-434); RBC 4.98 M/mm3 (3.60-5.2); RDW 15.5 % (11.6-15.6); WHITE BLOOD COUNT 6.4 K/mm3 (4.0-10.0)
[2022-11-21] MEDS ORDERED: ceFAZolin SODIUM 1 GM VIAL ONE (09:00)
[2022-11-21 09:16] LABS: CALCIUM 8.7 mg/dL (8.5-10.1)
[2022-11-21 09:17] LABS: BLOOD UREA NITROGEN 16.3 mg/dL (7-18)
[2022-11-21 09:19] LABS: CREATININE 0.7 mg/dL (0.55-1.3)
[2022-11-21] MEDS: DULoxetine HCL 30 MG CAPSULE.DR PO SCH (09:25)
[2022-11-21] MEDS: APIXABAN 2.5 MG TABLET PO SCH ×2 (09:26→22:52)
[2022-11-21] MEDS: SOLIFENACIN SUCCINATE 5 MG TAB PO SCH (10:18)
[2022-11-21] MEDS: FUROSEMIDE 40 MG TABLET (FP) PO SCH (10:18)
[2022-11-21] MEDS: ACETAMINOPHEN 325 MG TABLET (FP) PO PRN (13:10)
[2022-11-21] MEDS ORDERED: POTASSIUM CHLORIDE TABS 10 MEQ TABLET.ER (FP) PO ONE (15:20)
[2022-11-21] MEDS: DOCUSATE SODIUM 100 MG CAPSULE (FP) PO SCH (22:51)
[2022-11-21] MEDS: BACITRACIN ZINC 15 GM TUBE TOPICAL OINTMENT TP SCH (22:52)
[2022-11-22] MEDS: CEFAZOLIN 1 GM in DEXTROSE 5%-WATER - 50 ML IVPB SCH ×3 (02:59→17:14)
[2022-11-22] MEDS: AMANTADINE HCL 100 MG TABLET PO SCH ×3 (06:10→22:37)
[2022-11-22] MEDS: DOCUSATE SODIUM 100 MG CAPSULE (FP) PO SCH ×3 (06:10→21:35)
[2022-11-22] MEDS: APIXABAN 2.5 MG TABLET PO SCH ×2 (10:04→21:36)
[2022-11-22] MEDS: SOLIFENACIN SUCCINATE 5 MG TAB PO SCH (10:04)
[2022-11-22] MEDS: FUROSEMIDE 40 MG TABLET (FP) PO SCH (10:04)
[2022-11-22] MEDS: DULoxetine HCL 30 MG CAPSULE.DR PO SCH (10:04)
[2022-11-22] MEDS: BACITRACIN ZINC 15 GM TUBE TOPICAL OINTMENT TP SCH ×2 (10:05→21:36)
[2022-11-22 10:12] LABS: BASO % 0.8 % (0-2.0); EOS % 1.4 % (0-4.5); HEMATOCRIT 45.3 % (32.4-45.2); HEMOGLOBIN 15.1 GM/dL (10.7-15.3); LYMPH % 29.5 % (8-40); MCH 29.6 pg (25.7-33.7); MCHC 33.3 g/dl (32.0-36.0); MEAN PLT VOLUME 9.7 fl (7.5-11.1); MONO % 11.1 % (3.8-10.2); NEUT % 57.2 % (42.8-82.8); PLATELET COUNT 149 10^3/uL (134-434); RBC 5.09 M/mm3 (3.60-5.2); RDW 15.8 % (11.6-15.6); WHITE BLOOD COUNT 7.2 K/mm3 (4.0-10.0)
[2022-11-22 10:23] LABS: BLOOD UREA NITROGEN 19.1 mg/dL (7-18); MAGNESIUM 2.3 mg/dL (1.8-2.4)
[2022-11-22 10:26] LABS: CREATININE 0.7 mg/dL (0.55-1.3)
[2022-11-22 10:27] LABS: BILIRUBIN,TOTAL 1.2 mg/dL (0.2-1); TOT PROT 6.3 g/dl (6.4-8.2)
[2022-11-22 10:39] LABS: ALBUMIN 2.8 g/dl (3.4-5.0)
[2022-11-22] MEDS ORDERED: LIDOCAINE 5% TOPICAL PATCH TP ONE (12:45)
[2022-11-22] MEDS: ACETAMINOPHEN 325 MG TABLET (FP) PO PRN (13:43)
[2022-11-22] MEDS: AMINO ACIDS/PROTEIN HYDROLYS 30 ML LIQUID.PKT PO SCH (17:13)
[2022-11-22] MEDS ORDERED: LIDOCAINE PATCH REMOVAL MC ONE (22:00)
[2022-11-23] MEDS: CEFAZOLIN 1 GM in DEXTROSE 5%-WATER - 50 ML IVPB SCH ×3 (01:42→17:58)
[2022-11-23] MEDS: AMANTADINE HCL 100 MG TABLET PO SCH ×3 (05:23→21:59)
[2022-11-23] MEDS: DOCUSATE SODIUM 100 MG CAPSULE (FP) PO SCH ×3 (05:23→21:58)
[2022-11-23] MEDS: AMINO ACIDS/PROTEIN HYDROLYS 30 ML LIQUID.PKT PO SCH ×2 (09:42→17:57)
[2022-11-23] MEDS: LIDOCAINE 5% TOPICAL PATCH TP SCH (09:44)
[2022-11-23] MEDS: ZINC SULFATE 220 MG CAPSULE (FP) PO SCH (09:45)
[2022-11-23] MEDS: SOLIFENACIN SUCCINATE 5 MG TAB PO SCH (09:45)
[2022-11-23] MEDS: MULTIVITAMINS (DAILY MVI) TABLET (FP) PO SCH (09:45)
[2022-11-23] MEDS: DULoxetine HCL 30 MG CAPSULE.DR PO SCH (09:45)
[2022-11-23] MEDS: APIXABAN 2.5 MG TABLET PO SCH (09:45)
[2022-11-23] MEDS: FUROSEMIDE 40 MG TABLET (FP) PO SCH (09:46)
[2022-11-23] MEDS: ASCORBIC ACID 500 MG TABLET (FP) PO SCH (09:46)
[2022-11-23 10:21] LABS: BASO % 0.7 % (0-2.0); EOS % 2.4 % (0-4.5); HEMATOCRIT 44.7 % (32.4-45.2); HEMOGLOBIN 14.8 GM/dL (10.7-15.3); LYMPH % 30.2 % (8-40); MCH 29.6 pg (25.7-33.7); MCHC 33.2 g/dl (32.0-36.0); MEAN CELL VOLUME 89.2 fl (80-96); MEAN PLT VOLUME 9.1 fl (7.5-11.1); MONO % 11.9 % (3.8-10.2); NEUT % 54.8 % (42.8-82.8); PLATELET COUNT 145 10^3/uL (134-434); RBC 5.01 M/mm3 (3.60-5.2); RDW 15.8 % (11.6-15.6); WHITE BLOOD COUNT 7.6 K/mm3 (4.0-10.0)
[2022-11-23 10:22] LABS: ALBUMIN 2.6 g/dl (3.4-5.0); BLOOD UREA NITROGEN 15.1 mg/dL (7-18); CALCIUM 8.9 mg/dL (8.5-10.1); MAGNESIUM 2.3 mg/dL (1.8-2.4)
[2022-11-23 10:26] LABS: CREATININE 0.6 mg/dL (0.55-1.3)
[2022-11-23 10:28] LABS: BILIRUBIN,TOTAL 1.3 mg/dL (0.2-1); TOT PROT 6.3 g/dl (6.4-8.2)
[2022-11-23] MEDS: BACITRACIN ZINC 15 GM TUBE TOPICAL OINTMENT TP SCH ×2 (11:11→22:01)
[2022-11-23] MEDS: ACETAMINOPHEN 325 MG TABLET (FP) PO SCH ×3 (12:23→23:21)
[2022-11-23] MEDS: APIXABAN 5 MG TABLET PO SCH (21:58)
[2022-11-23] MEDS: LIDOCAINE PATCH REMOVAL MC SCH (21:59)
[2022-11-24] MEDS: CEFAZOLIN 1 GM in DEXTROSE 5%-WATER - 50 ML IVPB SCH ×3 (02:28→17:51)
[2022-11-24] MEDS: ACETAMINOPHEN 325 MG TABLET (FP) PO SCH ×4 (06:23→23:05)
[2022-11-24] MEDS: DOCUSATE SODIUM 100 MG CAPSULE (FP) PO SCH ×3 (06:24→21:49)
[2022-11-24] MEDS: AMANTADINE HCL 100 MG TABLET PO SCH ×3 (06:25→21:51)
[2022-11-24 09:11] LABS: BASO % 0.9 % (0-2.0); EOS % 3.1 % (0-4.5); HEMATOCRIT 45.6 % (32.4-45.2); LYMPH % 28.2 % (8-40); MCH 29.5 pg (25.7-33.7); MCHC 32.9 g/dl (32.0-36.0); MEAN CELL VOLUME 89.6 fl (80-96); MEAN PLT VOLUME 9.3 fl (7.5-11.1); MONO % 11.3 % (3.8-10.2); NEUT % 56.5 % (42.8-82.8); PLATELET COUNT 165 10^3/uL (134-434); RBC 5.09 M/mm3 (3.60-5.2); RDW 15.8 % (11.6-15.6); WHITE BLOOD COUNT 6.9 K/mm3 (4.0-10.0)
[2022-11-24 09:36] LABS: ALBUMIN 2.6 g/dl (3.4-5.0)
[2022-11-24 09:37] LABS: BLOOD UREA NITROGEN 16.7 mg/dL (7-18); MAGNESIUM 2.4 mg/dL (1.8-2.4)
[2022-11-24 09:39] LABS: CREATININE 0.6 mg/dL (0.55-1.3)
[2022-11-24 09:41] LABS: BILIRUBIN,TOTAL 1.3 mg/dL (0.2-1); TOT PROT 6.2 g/dl (6.4-8.2)
[2022-11-24] MEDS: APIXABAN 5 MG TABLET PO SCH ×2 (10:42→21:49)
[2022-11-24] MEDS: ASCORBIC ACID 500 MG TABLET (FP) PO SCH (10:42)
[2022-11-24] MEDS: FUROSEMIDE 40 MG TABLET (FP) PO SCH ×2 (10:42→17:52)
[2022-11-24] MEDS: DULoxetine HCL 30 MG CAPSULE.DR PO SCH (10:42)
[2022-11-24] MEDS: ZINC SULFATE 220 MG CAPSULE (FP) PO SCH (10:42)
[2022-11-24] MEDS: LIDOCAINE 5% TOPICAL PATCH TP SCH (10:43)
[2022-11-24] MEDS: BACITRACIN ZINC 15 GM TUBE TOPICAL OINTMENT TP SCH ×2 (10:43→21:49)
[2022-11-24] MEDS: MULTIVITAMINS (DAILY MVI) TABLET (FP) PO SCH (10:43)
[2022-11-24] MEDS: SOLIFENACIN SUCCINATE 5 MG TAB PO SCH (10:43)
[2022-11-24] MEDS: AMINO ACIDS/PROTEIN HYDROLYS 30 ML LIQUID.PKT PO SCH ×2 (10:44→17:50)
[2022-11-24] MEDS ORDERED: BISACODYL 10 MG SUPP.RECT PR ONE (16:56)
[2022-11-24] MEDS: POLYETHYLENE GLYCOL (HEALTHYLAX) 3350 17 GM PACKET PO SCH ×2 (17:50→21:49)
[2022-11-24] MEDS: LIDOCAINE PATCH REMOVAL MC SCH (21:49)
[2022-11-25] MEDS: CEFAZOLIN 1 GM in DEXTROSE 5%-WATER - 50 ML IVPB SCH ×2 (01:37→10:41)
[2022-11-25] MEDS: DOCUSATE SODIUM 100 MG CAPSULE (FP) PO SCH ×3 (05:59→22:08)
[2022-11-25] MEDS: ACETAMINOPHEN 325 MG TABLET (FP) PO SCH ×4 (05:59→22:30)
[2022-11-25] MEDS: AMANTADINE HCL 100 MG TABLET PO SCH ×3 (06:00→22:09)
[2022-11-25] MEDS: FUROSEMIDE 40 MG TABLET (FP) PO SCH ×2 (06:00→17:43)
[2022-11-25 07:39] LABS: BASO % 0.9 % (0-2.0); EOS % 3.2 % (0-4.5); HEMATOCRIT 44.9 % (32.4-45.2); HEMOGLOBIN 14.9 GM/dL (10.7-15.3); LYMPH % 24.6 % (8-40); MCH 29.5 pg (25.7-33.7); MCHC 33.2 g/dl (32.0-36.0); MEAN PLT VOLUME 8.9 fl (7.5-11.1); MONO % 10.2 % (3.8-10.2); NEUT % 61.1 % (42.8-82.8); PLATELET COUNT 162 10^3/uL (134-434); RBC 5.04 M/mm3 (3.60-5.2); RDW 15.7 % (11.6-15.6); WHITE BLOOD COUNT 7.3 K/mm3 (4.0-10.0)
[2022-11-25 07:45] LABS: CALCIUM 8.4 mg/dL (8.5-10.1)
[2022-11-25 07:46] LABS: ALBUMIN 2.5 g/dl (3.4-5.0); BLOOD UREA NITROGEN 13.9 mg/dL (7-18); MAGNESIUM 2.1 mg/dL (1.8-2.4)
[2022-11-25 07:49] LABS: CREATININE 0.6 mg/dL (0.55-1.3)
[2022-11-25 07:51] LABS: BILIRUBIN,TOTAL 1.1 mg/dL (0.2-1); TOT PROT 6.2 g/dl (6.4-8.2)
[2022-11-25] MEDS: AMINO ACIDS/PROTEIN HYDROLYS 30 ML LIQUID.PKT PO SCH ×2 (10:41→17:42)
[2022-11-25] MEDS: DULoxetine HCL 30 MG CAPSULE.DR PO SCH (10:41)
[2022-11-25] MEDS: SOLIFENACIN SUCCINATE 5 MG TAB PO SCH (10:41)
[2022-11-25] MEDS: ZINC SULFATE 220 MG CAPSULE (FP) PO SCH (10:42)
[2022-11-25] MEDS: APIXABAN 5 MG TABLET PO SCH ×2 (10:42→22:09)
[2022-11-25] MEDS: ASCORBIC ACID 500 MG TABLET (FP) PO SCH (10:42)
[2022-11-25] MEDS: MULTIVITAMINS (DAILY MVI) TABLET (FP) PO SCH (10:42)
[2022-11-25] MEDS: LIDOCAINE 5% TOPICAL PATCH TP SCH (10:44)
[2022-11-25] MEDS: POLYETHYLENE GLYCOL (HEALTHYLAX) 3350 17 GM PACKET PO SCH ×2 (10:44→22:08)
[2022-11-25] MEDS: BACITRACIN ZINC 15 GM TUBE TOPICAL OINTMENT TP SCH ×2 (10:44→22:20)
[2022-11-25] MEDS ORDERED: MINERAL OIL ENEMA 133 ML ENEMA RC ONE (11:51)
[2022-11-25] MEDS: LIDOCAINE PATCH REMOVAL MC SCH (22:09)
[2022-11-25] MEDS: CEPHALEXIN MONOHYDRATE 500 MG CAPSULE (UD) PO SCH (22:09)
[2022-11-26] MEDS: FUROSEMIDE 40 MG TABLET (FP) PO SCH ×2 (05:56→17:23)
[2022-11-26] MEDS: ACETAMINOPHEN 325 MG TABLET (FP) PO SCH ×4 (05:56→17:22)
[2022-11-26] MEDS: DOCUSATE SODIUM 100 MG CAPSULE (FP) PO SCH ×3 (05:56→22:04)
[2022-11-26] MEDS: AMANTADINE HCL 100 MG TABLET PO SCH ×3 (05:57→22:09)
[2022-11-26 10:09] LABS: BASO % 0.4 % (0-2.0); EOS % 1.1 % (0-4.5); HEMOGLOBIN 15.5 GM/dL (10.7-15.3); LYMPH % 8.6 % (8-40); MCH 30.3 pg (25.7-33.7); MCHC 34.3 g/dl (32.0-36.0); MEAN CELL VOLUME 88.2 fl (80-96); MEAN PLT VOLUME 9.7 fl (7.5-11.1); NEUT % 85.9 % (42.8-82.8); PLATELET COUNT 171 10^3/uL (134-434); RDW 15.7 % (11.6-15.6); WHITE BLOOD COUNT 9.1 K/mm3 (4.0-10.0)
[2022-11-26] MEDS: APIXABAN 5 MG TABLET PO SCH ×2 (10:10→22:04)
[2022-11-26] MEDS: AMINO ACIDS/PROTEIN HYDROLYS 30 ML LIQUID.PKT PO SCH ×2 (10:10→17:23)
[2022-11-26] MEDS: POLYETHYLENE GLYCOL (HEALTHYLAX) 3350 17 GM PACKET PO SCH ×2 (10:10→22:06)
[2022-11-26] MEDS: ASCORBIC ACID 500 MG TABLET (FP) PO SCH (10:10)
[2022-11-26] MEDS: BACITRACIN ZINC 15 GM TUBE TOPICAL OINTMENT TP SCH ×2 (10:11→22:07)
[2022-11-26] MEDS: ZINC SULFATE 220 MG CAPSULE (FP) PO SCH (10:11)
[2022-11-26] MEDS: MULTIVITAMINS (DAILY MVI) TABLET (FP) PO SCH (10:11)
[2022-11-26] MEDS: DULoxetine HCL 30 MG CAPSULE.DR PO SCH (10:11)
[2022-11-26] MEDS: CEPHALEXIN MONOHYDRATE 500 MG CAPSULE (UD) PO SCH ×2 (10:11→22:05)
[2022-11-26] MEDS: SOLIFENACIN SUCCINATE 5 MG TAB PO SCH (10:11)
[2022-11-26] MEDS: LIDOCAINE 5% TOPICAL PATCH TP SCH (10:12)
[2022-11-26 10:34] LABS: ALBUMIN 2.6 g/dl (3.4-5.0); MAGNESIUM 2.1 mg/dL (1.8-2.4)
[2022-11-26 10:35] LABS: CREATININE 0.7 mg/dL (0.55-1.3)
[2022-11-26 10:37] LABS: BILIRUBIN,TOTAL 1.7 mg/dL (0.2-1); TOT PROT 6.3 g/dl (6.4-8.2)
[2022-11-26 16:14] VITALS: BMI 23.3
[2022-11-26] MEDS: LIDOCAINE PATCH REMOVAL MC SCH (22:15)
[2022-11-27] MEDS: FUROSEMIDE 40 MG TABLET (FP) PO SCH ×2 (06:25→18:03)
[2022-11-27] MEDS: DOCUSATE SODIUM 100 MG CAPSULE (FP) PO SCH ×4 (06:25→22:13)
[2022-11-27] MEDS: ACETAMINOPHEN 325 MG TABLET (FP) PO SCH ×4 (06:26→23:35)
[2022-11-27] MEDS: AMANTADINE HCL 100 MG TABLET PO SCH ×3 (06:27→22:18)
[2022-11-27 09:28] LABS: BASO % 0.5 % (0-2.0); EOS % 2.3 % (0-4.5); HEMOGLOBIN 15.1 GM/dL (10.7-15.3); LYMPH % 25.5 % (8-40); MCH 30.3 pg (25.7-33.7); MCHC 34.3 g/dl (32.0-36.0); MEAN CELL VOLUME 88.2 fl (80-96); MEAN PLT VOLUME 9.4 fl (7.5-11.1); MONO % 7.9 % (3.8-10.2); NEUT % 63.8 % (42.8-82.8); PLATELET COUNT 170 10^3/uL (134-434); RBC 4.98 M/mm3 (3.60-5.2); RDW 15.8 % (11.6-15.6)
[2022-11-27 09:54] LABS: CALCIUM 8.2 mg/dL (8.5-10.1)
[2022-11-27 09:57] LABS: ALBUMIN 2.5 g/dl (3.4-5.0); BLOOD UREA NITROGEN 24.3 mg/dL (7-18)
[2022-11-27 09:58] LABS: CREATININE 0.7 mg/dL (0.55-1.3)
[2022-11-27 09:59] LABS: BILIRUBIN,TOTAL 1.3 mg/dL (0.2-1); TOT PROT 6.2 g/dl (6.4-8.2)
[2022-11-27] MEDS: APIXABAN 5 MG TABLET PO SCH ×2 (13:26→22:13)
[2022-11-27] MEDS: ASCORBIC ACID 500 MG TABLET (FP) PO SCH (13:26)
[2022-11-27] MEDS: SOLIFENACIN SUCCINATE 5 MG TAB PO SCH (13:26)
[2022-11-27] MEDS: ZINC SULFATE 220 MG CAPSULE (FP) PO SCH (13:27)
[2022-11-27] MEDS: DULoxetine HCL 30 MG CAPSULE.DR PO SCH (13:27)
[2022-11-27] MEDS: MULTIVITAMINS (DAILY MVI) TABLET (FP) PO SCH (13:27)
[2022-11-27] MEDS: AMINO ACIDS/PROTEIN HYDROLYS 30 ML LIQUID.PKT PO SCH ×2 (13:27→18:03)
[2022-11-27] MEDS: CEPHALEXIN MONOHYDRATE 500 MG CAPSULE (UD) PO SCH ×2 (13:27→22:13)
[2022-11-27] MEDS: POLYETHYLENE GLYCOL (HEALTHYLAX) 3350 17 GM PACKET PO SCH ×2 (13:28→22:16)
[2022-11-27] MEDS: BACITRACIN ZINC 15 GM TUBE TOPICAL OINTMENT TP SCH ×2 (13:28→22:15)
[2022-11-27] MEDS: LIDOCAINE 5% TOPICAL PATCH TP SCH (13:28)
[2022-11-27 21:40] VITALS: RESP 18
[2022-11-27] MEDS: LIDOCAINE PATCH REMOVAL MC SCH (22:16)
[2022-11-28] MEDS: ACETAMINOPHEN 325 MG TABLET (FP) PO SCH ×2 (04:55→11:36)
[2022-11-28] MEDS: DOCUSATE SODIUM 100 MG CAPSULE (FP) PO SCH (06:04)
[2022-11-28] MEDS: FUROSEMIDE 40 MG TABLET (FP) PO SCH (06:08)
[2022-11-28] MEDS: AMANTADINE HCL 100 MG TABLET PO SCH (06:08)
[2022-11-28 08:16] VITALS: PULSE 68
[2022-11-28] MEDS: LIDOCAINE 5% TOPICAL PATCH TP SCH (09:28)
[2022-11-28] MEDS: SOLIFENACIN SUCCINATE 5 MG TAB PO SCH (09:28)
[2022-11-28] MEDS: CEPHALEXIN MONOHYDRATE 500 MG CAPSULE (UD) PO SCH (09:28)
[2022-11-28] MEDS: ZINC SULFATE 220 MG CAPSULE (FP) PO SCH (09:28)
[2022-11-28] MEDS: DULoxetine HCL 30 MG CAPSULE.DR PO SCH (09:28)
[2022-11-28] MEDS: APIXABAN 5 MG TABLET PO SCH (09:28)
[2022-11-28] MEDS: AMINO ACIDS/PROTEIN HYDROLYS 30 ML LIQUID.PKT PO SCH (09:29)
[2022-11-28] MEDS: POLYETHYLENE GLYCOL (HEALTHYLAX) 3350 17 GM PACKET PO SCH (09:29)
[2022-11-28 09:37] VITALS: BP 159/83; TEMP 98
[2022-11-28 10:22] LABS: BASO % 0.7 % (0-2.0); EOS % 3.1 % (0-4.5); HEMATOCRIT 45.6 % (32.4-45.2); HEMOGLOBIN 15.7 GM/dL (10.7-15.3); LYMPH % 25.3 % (8-40); MCH 30.6 pg (25.7-33.7); MCHC 34.4 g/dl (32.0-36.0); MEAN PLT VOLUME 9.7 fl (7.5-11.1); MONO % 9.8 % (3.8-10.2); NEUT % 61.1 % (42.8-82.8); PLATELET COUNT 172 10^3/uL (134-434); RBC 5.13 M/mm3 (3.60-5.2); WHITE BLOOD COUNT 6.4 K/mm3 (4.0-10.0)
[2022-11-28] MEDS: MULTIVITAMINS (DAILY MVI) TABLET (FP) PO SCH (10:43)
[2022-11-28] MEDS: BACITRACIN ZINC 15 GM TUBE TOPICAL OINTMENT TP SCH (10:43)
[2022-11-28] MEDS: ASCORBIC ACID 500 MG TABLET (FP) PO SCH (10:43)
[2022-11-28 10:55] LABS: ALBUMIN 2.6 g/dl (3.4-5.0); BLOOD UREA NITROGEN 22.9 mg/dL (7-18); CALCIUM 8.8 mg/dL (8.5-10.1); MAGNESIUM 2.2 mg/dL (1.8-2.4)
[2022-11-28 10:58] LABS: CREATININE 0.7 mg/dL (0.55-1.3)
[2022-11-28 11:00] LABS: BILIRUBIN,TOTAL 1.2 mg/dL (0.2-1); TOT PROT 6.7 g/dl (6.4-8.2)
== END 2022-11-28 12:25 | DRG 603 ==
LOC: JER 08:11 → JERBED 11:11 → J8W 16:23 → OBSVTOIN 11-22 13:37
PROVIDERS: ADMIT Internal Medicine; ATTEND Nurse Practitioner Acute Care
DX: L03.116 Cellulitis of left lower limb (principal); I27.82 Chronic pulmonary embolism; I27.20 Pulmonary hypertension, unspecified; G35 Multiple sclerosis; Z79.01 Long term (current) use of anticoagulants; D75.1 Secondary polycythemia; I50.813 Acute on chronic right heart failure; R29.6 Repeated falls
CPT/HCPCS: 0241U-QW; 36415; 70450-TC; 70553-TC; 71045-TC-FY; 71046-TC-FY; 71275-TC; 72125-TC; 72170-TC-FY; 72192-TC; 78582-TC; 80048; 80053; 81003; 83735; 83880; 84484; 85025; 85027; 87086; 93005; 93010; 93306-TC; 93970-TC; 94010; 97116-GP; 97162-GP; 99285-25; A9539; A9540; A9579; C9803-CS; G0378; U0003; U0005

== ENCOUNTER 2023-06-22 16:11 | Inpatient (IN) | payer OTHER ==
[2023-06-22] MEDS ORDERED: PIPERACILLIN/TAZOB 3.375 GM 3.375 GM in DEXTROSE 5%-WATER - 50 ML IVPB ONE (17:01)
[2023-06-22] MEDS ORDERED: SODIUM CHLORIDE 500 ML IV STA (17:03)
[2023-06-22] MEDS ORDERED: PIPERACILLIN/TAZOB 3.375 GM 3.375 GM/50 ML BAG IVPB ONE (17:43)
[2023-06-22 17:53] LABS: BASO % 0.9 % (0-2.0); EOS % 0.3 % (0-4.5); HEMATOCRIT 52.1 % (32.4-45.2); HEMOGLOBIN 17.1 GM/dL (10.7-15.3); LYMPH % 25.2 % (8-40); MCH 30.1 pg (25.7-33.7); MCHC 32.8 g/dl (32.0-36.0); MEAN CELL VOLUME 91.7 fl (80-96); MEAN PLT VOLUME 8.9 fl (7.5-11.1); MONO % 9.5 % (3.8-10.2); NEUT % 64.1 % (42.8-82.8); PLATELET COUNT 134 10^3/uL (134-434); RBC 5.68 M/mm3 (3.60-5.2); RDW 14.7 % (11.6-15.6); WHITE BLOOD COUNT 6.3 K/mm3 (4.0-10.0)
[2023-06-22] MEDS ORDERED: ACETAMINOPHEN 1000 MG/100 ML BAG IVPB ONE (17:58)
[2023-06-22] MEDS ORDERED: ACETAMINOPHEN INJECTION 100 ML IVPB ONE (18:01)
[2023-06-22 18:24] LABS: LACTIC ACID 3.1 mmol/L (0.4-2.0)
[2023-06-22] MEDS ORDERED: SODIUM CHLORIDE 1,000 ML IV STA (18:30)
[2023-06-22 19:01] LABS: CHLORIDE 104 mmol/L (98-107); POTASSIUM 3.9 mmol/L (3.5-5.1); SODIUM 139 mmol/L (136-145)
[2023-06-22 19:04] LABS: ANION GAP 9 mmol/L (4-13); BLOOD UREA NITROGEN 23.3 mg/dL (7-18); CALCIUM 9.6 mg/dL (8.5-10.1); CO2 27 mmol/L (21-32); GLUCOSE,RANDOM 92 mg/dL (74-106); LIPASE 34 U/L (73-393)
[2023-06-22 19:07] LABS: SGOT/AST 33 U/L (15-37); SGPT/ALT 27 U/L (13-61)
[2023-06-22 19:09] LABS: BILIRUBIN,TOTAL 2.6 mg/dL (0.2-1); TOT PROT 7.2 g/dl (6.4-8.2)
[2023-06-22 19:10] LABS: ALK PHOS 104 U/L (45-117)
[2023-06-22] MEDS ORDERED: APIXABAN 2.5 MG TABLET PO ONE (23:03)
[2023-06-22] MEDS ORDERED: AMANTADINE HCL 100 MG TABLET PO ONE (23:04)
[2023-06-22] MEDS ORDERED: APIXABAN 2.5 MG TABLET ONE (23:11)
[2023-06-22 23:41] LABS: EPI CELLS 29 /uL (0-25.1); HYALINE CASTS 0 /uL (0-3.1); PH,URINE 5.5 (5.0-8.0); URINE APPEARANCE CLEAR; URINE BACTERIA 125 /uL (0-1359); URINE BILIRUBIN 1+ (NEGATIVE); URINE COLOR DK YELLOW; URINE GLUCOSE (UA) NEGATIVE (NEGATIVE); URINE KETONE TRACE (NEGATIVE); URINE LEUK ESTERASE TRACE (NEGATIVE); URINE NITRITE NEGATIVE (NEGATIVE); URINE PROTEIN 1+ (NEGATIVE); URINE WBC 27 /uL (0-25.8)
[2023-06-22 23:42] LABS: URINE RBC 32.2 /uL (0-23.9)
[2023-06-23] MEDS ORDERED: FUROSEMIDE 40 MG/4 ML INJECTABLE VIAL IVPUSH ONE (00:21)
[2023-06-23 00:50] LABS: LACTIC ACID 2.6 mmol/L (0.4-2.0)
[2023-06-23] MEDS ORDERED: FUROSEMIDE 40 MG/4 ML INJECTABLE VIAL ONE (01:12)
[2023-06-23] MEDS ORDERED: PIPERACILLIN/TAZOB 3.375 GM 3.375 GM/50 ML BAG IVPB ONE (03:04)
[2023-06-23] MEDS: PIPERACILLIN/TAZOB 3.375 GM 3.375 GM in DEXTROSE 5%-WATER - 50 ML IVPB SCH ×2 (03:12→09:33)
[2023-06-23 08:34] LABS: BASO % 1.1 % (0-2.0); EOS % 0.7 % (0-4.5); LYMPH % 31.5 % (8-40); MCH 29.7 pg (25.7-33.7); MCHC 32.6 g/dl (32.0-36.0); MEAN CELL VOLUME 91.2 fl (80-96); MEAN PLT VOLUME 8.7 fl (7.5-11.1); MONO % 12.9 % (3.8-10.2); NEUT % 53.8 % (42.8-82.8); PLATELET COUNT 123 10^3/uL (134-434); RBC 5.04 M/mm3 (3.60-5.2); RDW 14.8 % (11.6-15.6); WHITE BLOOD COUNT 5.5 K/mm3 (4.0-10.0)
[2023-06-23 08:59] LABS: POTASSIUM 3.5 mmol/L (3.5-5.1)
[2023-06-23 09:01] LABS: BLOOD UREA NITROGEN 23.2 mg/dL (7-18); CALCIUM 8.6 mg/dL (8.5-10.1)
[2023-06-23] MEDS: FUROSEMIDE 40 MG/4 ML INJECTABLE VIAL IVPUSH SCH ×2 (09:01→13:07)
[2023-06-23 09:04] LABS: BILIRUBIN,DIRECT 0.9 mg/dL (0.0-0.2); CREATININE 0.9 mg/dL (0.55-1.3)
[2023-06-23 09:06] LABS: TOT PROT 5.8 g/dl (6.4-8.2)
[2023-06-23 09:10] LABS: ALBUMIN 3.1 g/dl (3.4-5.0)
[2023-06-23] MEDS: SOLIFENACIN SUCCINATE 5 MG TAB PO SCH (09:32)
[2023-06-23] MEDS: APIXABAN 2.5 MG TABLET PO SCH ×2 (09:32→21:25)
[2023-06-23] MEDS: DULoxetine HCL 30 MG CAPSULE.DR PO SCH (09:32)
[2023-06-23] MEDS: AMANTADINE HCL 100 MG TABLET PO SCH ×2 (09:33→22:45)
[2023-06-23] MEDS ORDERED: FUROSEMIDE 40 MG TABLET (FP) PO SCH (10:00)
[2023-06-23] MEDS ORDERED: SODIUM CHLORIDE 250 ML IV STA (15:58)
[2023-06-23] MEDS: CEFAZOLIN SODIUM 2 GM in DEXTROSE 5%-WATER 100 ML IVPB SCH (17:25)
[2023-06-23] MEDS: ASCORBIC ACID 500 MG TABLET (FP) PO SCH (21:25)
[2023-06-23] MEDS ORDERED: AMANTADINE HCL 100 MG TABLET PO ONE (22:13)
[2023-06-23] MEDS ORDERED: APIXABAN 2.5 MG TABLET PO ONE (22:13)
[2023-06-24] MEDS ORDERED: PIPERACILLIN/TAZOB 3.375 GM 3.375 GM in DEXTROSE 5%-WATER - 50 ML IVPB SCH (02:00)
[2023-06-24] MEDS: CEFAZOLIN SODIUM 2 GM in DEXTROSE 5%-WATER 100 ML IVPB SCH ×3 (02:17→18:02)
[2023-06-24] MEDS: APIXABAN 2.5 MG TABLET PO SCH ×2 (09:42→21:39)
[2023-06-24] MEDS: ZINC SULFATE 220 MG CAPSULE (FP) PO SCH (09:42)
[2023-06-24] MEDS: SOLIFENACIN SUCCINATE 5 MG TAB PO SCH (09:42)
[2023-06-24] MEDS: MULTIVITAMINS (DAILY MVI) TABLET (FP) PO SCH (09:42)
[2023-06-24] MEDS: ASCORBIC ACID 500 MG TABLET (FP) PO SCH ×2 (09:42→21:38)
[2023-06-24] MEDS: DULoxetine HCL 30 MG CAPSULE.DR PO SCH (09:42)
[2023-06-24] MEDS: AMANTADINE HCL 100 MG TABLET PO SCH ×2 (09:45→21:39)
[2023-06-24 11:40] LABS: BASO % 0.3 % (0-2.0); EOS % 1.3 % (0-4.5); HEMATOCRIT 44.6 % (32.4-45.2); HEMOGLOBIN 14.2 GM/dL (10.7-15.3); LYMPH % 30.9 % (8-40); MCH 29.6 pg (25.7-33.7); MCHC 31.8 g/dl (32.0-36.0); MEAN CELL VOLUME 93.1 fl (80-96); MEAN PLT VOLUME 8.8 fl (7.5-11.1); MONO % 12.1 % (3.8-10.2); NEUT % 55.4 % (42.8-82.8); PLATELET COUNT 138 10^3/uL (134-434); RBC 4.79 M/mm3 (3.60-5.2); RDW 14.6 % (11.6-15.6)
[2023-06-24 12:03] LABS: POTASSIUM 3.5 mmol/L (3.5-5.1)
[2023-06-24 12:13] LABS: CALCIUM 8.8 mg/dL (8.5-10.1)
[2023-06-24 12:14] LABS: ALBUMIN 2.8 g/dl (3.4-5.0); BLOOD UREA NITROGEN 25.1 mg/dL (7-18); MAGNESIUM 2.1 mg/dL (1.8-2.4)
[2023-06-24 12:15] LABS: PHOSPHOROUS 3.6 mg/dL (2.5-4.9)
[2023-06-24 12:17] LABS: BILIRUBIN,TOTAL 0.9 mg/dL (0.2-1); TOT PROT 5.5 g/dl (6.4-8.2)
[2023-06-24] MEDS: ACETAMINOPHEN 500 MG TABLET (FP) PO PRN (22:06)
[2023-06-25] MEDS: CEFAZOLIN SODIUM 2 GM in DEXTROSE 5%-WATER 100 ML IVPB SCH ×3 (02:33→17:31)
[2023-06-25] MEDS: ASCORBIC ACID 500 MG TABLET (FP) PO SCH ×2 (09:10→21:40)
[2023-06-25] MEDS: DULoxetine HCL 30 MG CAPSULE.DR PO SCH (09:10)
[2023-06-25] MEDS: ZINC SULFATE 220 MG CAPSULE (FP) PO SCH (09:10)
[2023-06-25] MEDS: APIXABAN 2.5 MG TABLET PO SCH ×2 (09:10→21:40)
[2023-06-25] MEDS: MULTIVITAMINS (DAILY MVI) TABLET (FP) PO SCH (09:10)
[2023-06-25] MEDS: SOLIFENACIN SUCCINATE 5 MG TAB PO SCH (09:10)
[2023-06-25] MEDS: AMANTADINE HCL 100 MG TABLET PO SCH ×2 (09:11→21:40)
[2023-06-25] MEDS: ACETAMINOPHEN 500 MG TABLET (FP) PO PRN ×2 (12:39→21:40)
[2023-06-25] MEDS ORDERED: CEFAZOLIN SODIUM 2 GM VIAL ONE (17:01)
[2023-06-26] MEDS: CEFAZOLIN SODIUM 2 GM in DEXTROSE 5%-WATER 100 ML IVPB SCH ×3 (01:53→17:28)
[2023-06-26] MEDS: ACETAMINOPHEN 500 MG TABLET (FP) PO PRN ×2 (09:34→21:38)
[2023-06-26] MEDS: ZINC SULFATE 220 MG CAPSULE (FP) PO SCH (10:19)
[2023-06-26] MEDS: AMANTADINE HCL 100 MG TABLET PO SCH ×2 (10:19→21:39)
[2023-06-26] MEDS: DULoxetine HCL 30 MG CAPSULE.DR PO SCH (10:19)
[2023-06-26] MEDS: APIXABAN 2.5 MG TABLET PO SCH ×2 (10:19→21:39)
[2023-06-26] MEDS: ASCORBIC ACID 500 MG TABLET (FP) PO SCH ×2 (10:19→21:39)
[2023-06-26] MEDS: MULTIVITAMINS (DAILY MVI) TABLET (FP) PO SCH (10:19)
[2023-06-26] MEDS: SOLIFENACIN SUCCINATE 5 MG TAB PO SCH (10:21)
[2023-06-26 10:36] LABS: HEMATOCRIT 46.7 % (32.4-45.2); HEMOGLOBIN 14.7 GM/dL (10.7-15.3); MCH 29.1 pg (25.7-33.7); MCHC 31.4 g/dl (32.0-36.0); MEAN CELL VOLUME 92.7 fl (80-96); MEAN PLT VOLUME 8.2 fl (7.5-11.1); PLATELET COUNT 135 10^3/uL (134-434); RBC 5.04 M/mm3 (3.60-5.2); RDW 14.6 % (11.6-15.6); WHITE BLOOD COUNT 5.3 K/mm3 (4.0-10.0)
[2023-06-26 11:02] LABS: POTASSIUM 3.8 mmol/L (3.5-5.1)
[2023-06-26 11:13] LABS: BLOOD UREA NITROGEN 13.6 mg/dL (7-18); CALCIUM 8.4 mg/dL (8.5-10.1)
[2023-06-26 11:16] LABS: CREATININE 0.7 mg/dL (0.55-1.3)
[2023-06-26 14:48] LABS: ARTERIAL BLD GAS O2 SATURATION 94.5 % (95-98); ARTERIAL BLOOD GAS BASE EXCESS 5.9 mmol/L (-2-2); ARTERIAL BLOOD GAS PO2 68.8 mmHg (80-100); ARTERIAL BLOOD GAS pH 7.459 (7.350-7.450)
[2023-06-26 14:50] LABS: ALLENS TEST POSITIVE
[2023-06-27] MEDS: CEFAZOLIN SODIUM 2 GM in DEXTROSE 5%-WATER 100 ML IVPB SCH ×4 (01:19→17:56)
[2023-06-27] MEDS: FUROSEMIDE 40 MG/4 ML INJECTABLE VIAL IVPUSH SCH ×2 (06:07→13:48)
[2023-06-27 07:45] LABS: HEMATOCRIT 48.9 % (32.4-45.2); HEMOGLOBIN 15.3 GM/dL (10.7-15.3); MCH 29.1 pg (25.7-33.7); MCHC 31.3 g/dl (32.0-36.0); MEAN CELL VOLUME 93.1 fl (80-96); MEAN PLT VOLUME 8.2 fl (7.5-11.1); PLATELET COUNT 141 10^3/uL (134-434); RBC 5.26 M/mm3 (3.60-5.2); RDW 15.2 % (11.6-15.6); WHITE BLOOD COUNT 6.4 K/mm3 (4.0-10.0)
[2023-06-27 08:04] LABS: POTASSIUM 3.8 mmol/L (3.5-5.1)
[2023-06-27 08:28] LABS: CALCIUM 8.7 mg/dL (8.5-10.1)
[2023-06-27 08:32] LABS: ALBUMIN 2.9 g/dl (3.4-5.0)
[2023-06-27 08:33] LABS: BLOOD UREA NITROGEN 14.3 mg/dL (7-18)
[2023-06-27 08:35] LABS: BILIRUBIN,TOTAL 1.1 mg/dL (0.2-1); TOT PROT 5.9 g/dl (6.4-8.2)
[2023-06-27 08:36] LABS: CREATININE 0.7 mg/dL (0.55-1.3)
[2023-06-27] MEDS: ACETAMINOPHEN 500 MG TABLET (FP) PO PRN (10:00)
[2023-06-27] MEDS: MULTIVITAMINS (DAILY MVI) TABLET (FP) PO SCH (10:01)
[2023-06-27] MEDS: ASCORBIC ACID 500 MG TABLET (FP) PO SCH ×2 (10:01→22:01)
[2023-06-27] MEDS: DULoxetine HCL 30 MG CAPSULE.DR PO SCH (10:02)
[2023-06-27] MEDS: ZINC SULFATE 220 MG CAPSULE (FP) PO SCH (10:02)
[2023-06-27] MEDS: APIXABAN 2.5 MG TABLET PO SCH ×2 (10:02→22:01)
[2023-06-27] MEDS: AMANTADINE HCL 100 MG TABLET PO SCH ×2 (10:03→22:07)
[2023-06-27] MEDS: SOLIFENACIN SUCCINATE 5 MG TAB PO SCH (10:19)
[2023-06-27 13:50] VITALS: BMI 28.5
[2023-06-27] MEDS ORDERED: POLYETHYLENE GLYCOL (HEALTHYLAX) 3350 17 GM PACKET PO ONE (15:15)
[2023-06-28] MEDS: CEPHALEXIN MONOHYDRATE 250 MG CAPSULE (FP) PO SCH ×5 (00:16→23:24)
[2023-06-28] MEDS: FUROSEMIDE 40 MG/4 ML INJECTABLE VIAL IVPUSH SCH ×2 (06:00→16:35)
[2023-06-28] MEDS: ACETAMINOPHEN 500 MG TABLET (FP) PO PRN (08:42)
[2023-06-28 09:32] LABS: POTASSIUM 4.1 mmol/L (3.5-5.1)
[2023-06-28 09:55] LABS: CALCIUM 8.4 mg/dL (8.5-10.1)
[2023-06-28 09:57] LABS: ALBUMIN 2.9 g/dl (3.4-5.0); MAGNESIUM 2.3 mg/dL (1.8-2.4)
[2023-06-28 09:58] LABS: BLOOD UREA NITROGEN 14.1 mg/dL (7-18)
[2023-06-28] MEDS: APIXABAN 2.5 MG TABLET PO SCH ×2 (09:58→23:21)
[2023-06-28] MEDS: ASCORBIC ACID 500 MG TABLET (FP) PO SCH ×2 (09:58→23:21)
[2023-06-28] MEDS: MULTIVITAMINS (DAILY MVI) TABLET (FP) PO SCH (09:58)
[2023-06-28] MEDS: DULoxetine HCL 30 MG CAPSULE.DR PO SCH (09:58)
[2023-06-28] MEDS: ZINC SULFATE 220 MG CAPSULE (FP) PO SCH (09:58)
[2023-06-28 09:59] LABS: CREATININE 0.7 mg/dL (0.55-1.3)
[2023-06-28] MEDS: AMANTADINE HCL 100 MG TABLET PO SCH ×2 (09:59→23:21)
[2023-06-28 10:00] LABS: BILIRUBIN,TOTAL 1.2 mg/dL (0.2-1); TOT PROT 6.3 g/dl (6.4-8.2)
[2023-06-28] MEDS: SOLIFENACIN SUCCINATE 5 MG TAB PO SCH (10:01)
[2023-06-29] MEDS: CEPHALEXIN MONOHYDRATE 250 MG CAPSULE (FP) PO SCH ×4 (06:23→23:28)
[2023-06-29] MEDS: FUROSEMIDE 40 MG/4 ML INJECTABLE VIAL IVPUSH SCH (06:23)
[2023-06-29 07:33] LABS: BASO % 0.5 % (0-2.0); EOS % 2.5 % (0-4.5); HEMATOCRIT 47.5 % (32.4-45.2); HEMOGLOBIN 15.3 GM/dL (10.7-15.3); LYMPH % 19.9 % (8-40); MCH 29.8 pg (25.7-33.7); MCHC 32.2 g/dl (32.0-36.0); MEAN CELL VOLUME 92.4 fl (80-96); MEAN PLT VOLUME 8.1 fl (7.5-11.1); MONO % 12.4 % (3.8-10.2); NEUT % 64.7 % (42.8-82.8); PLATELET COUNT 136 10^3/uL (134-434); RBC 5.14 M/mm3 (3.60-5.2); RDW 15.3 % (11.6-15.6); WHITE BLOOD COUNT 6.7 K/mm3 (4.0-10.0)
[2023-06-29 07:53] LABS: POTASSIUM 4.2 mmol/L (3.5-5.1)
[2023-06-29 08:02] LABS: BLOOD UREA NITROGEN 20.1 mg/dL (7-18); CALCIUM 8.5 mg/dL (8.5-10.1)
[2023-06-29 08:05] LABS: CREATININE 0.6 mg/dL (0.55-1.3)
[2023-06-29] MEDS: MULTIVITAMINS (DAILY MVI) TABLET (FP) PO SCH (09:55)
[2023-06-29] MEDS: ZINC SULFATE 220 MG CAPSULE (FP) PO SCH (09:56)
[2023-06-29] MEDS: DULoxetine HCL 30 MG CAPSULE.DR PO SCH (09:56)
[2023-06-29] MEDS: SOLIFENACIN SUCCINATE 5 MG TAB PO SCH (09:56)
[2023-06-29] MEDS: APIXABAN 2.5 MG TABLET PO SCH ×2 (09:56→21:18)
[2023-06-29] MEDS: AMANTADINE HCL 100 MG TABLET PO SCH ×2 (09:57→21:18)
[2023-06-29] MEDS: ASCORBIC ACID 500 MG TABLET (FP) PO SCH ×2 (09:57→21:18)
[2023-06-29] MEDS: ACETAMINOPHEN 500 MG TABLET (FP) PO PRN (18:04)
[2023-06-30] MEDS ORDERED: FUROSEMIDE 40 MG TABLET (FP) PO SCH (06:00)
[2023-06-30] MEDS: CEPHALEXIN MONOHYDRATE 250 MG CAPSULE (FP) PO SCH ×4 (06:24→23:32)
[2023-06-30 08:44] LABS: CALCIUM 8.7 mg/dL (8.5-10.1); POTASSIUM 3.8 mmol/L (3.5-5.1)
[2023-06-30 08:46] LABS: BLOOD UREA NITROGEN 21.6 mg/dL (7-18)
[2023-06-30 08:49] LABS: CREATININE 0.6 mg/dL (0.55-1.3)
[2023-06-30] MEDS ORDERED: BISACODYL 5 MG TABLET.DR (FP) PO PRN (09:21)
[2023-06-30] MEDS: ASCORBIC ACID 500 MG TABLET (FP) PO SCH ×2 (09:40→21:31)
[2023-06-30] MEDS: APIXABAN 2.5 MG TABLET PO SCH ×2 (09:41→21:31)
[2023-06-30] MEDS: ZINC SULFATE 220 MG CAPSULE (FP) PO SCH (09:41)
[2023-06-30] MEDS: DULoxetine HCL 30 MG CAPSULE.DR PO SCH (09:41)
[2023-06-30] MEDS: MULTIVITAMINS (DAILY MVI) TABLET (FP) PO SCH (09:42)
[2023-06-30] MEDS: AMANTADINE HCL 100 MG TABLET PO SCH ×2 (09:43→21:31)
[2023-06-30] MEDS: POLYETHYLENE GLYCOL (HEALTHYLAX) 3350 17 GM PACKET PO SCH (09:54)
[2023-06-30] MEDS ORDERED: MAGNESIUM CITRATE 300 ML BOTTLE PO ONE (10:00)
[2023-06-30] MEDS ORDERED: FUROSEMIDE 40 MG/4 ML INJECTABLE VIAL IVPUSH SCH (10:00)
[2023-06-30] MEDS: SOLIFENACIN SUCCINATE 5 MG TAB PO SCH (13:20)
[2023-06-30] MEDS: TORSEMIDE 20 MG TABLET (FP) PO SCH (14:28)
[2023-06-30] MEDS: ACETAMINOPHEN 500 MG TABLET (FP) PO PRN (18:33)
[2023-07-01] MEDS: TORSEMIDE 20 MG TABLET (FP) PO SCH ×2 (06:18→13:18)
[2023-07-01] MEDS: CEPHALEXIN MONOHYDRATE 250 MG CAPSULE (FP) PO SCH ×3 (06:18→17:23)
[2023-07-01] MEDS: APIXABAN 2.5 MG TABLET PO SCH ×2 (11:00→21:39)
[2023-07-01] MEDS: DULoxetine HCL 30 MG CAPSULE.DR PO SCH (11:02)
[2023-07-01] MEDS: MULTIVITAMINS (DAILY MVI) TABLET (FP) PO SCH (11:02)
[2023-07-01] MEDS: ZINC SULFATE 220 MG CAPSULE (FP) PO SCH (11:02)
[2023-07-01] MEDS: ASCORBIC ACID 500 MG TABLET (FP) PO SCH ×2 (11:03→21:39)
[2023-07-01] MEDS: SOLIFENACIN SUCCINATE 5 MG TAB PO SCH (11:04)
[2023-07-01] MEDS: POLYETHYLENE GLYCOL (HEALTHYLAX) 3350 17 GM PACKET PO SCH (11:05)
[2023-07-01] MEDS: AMANTADINE HCL 100 MG TABLET PO SCH ×2 (11:05→21:39)
[2023-07-01] MEDS: ACETAMINOPHEN 500 MG TABLET (FP) PO PRN (16:07)
[2023-07-02] MEDS: TORSEMIDE 20 MG TABLET (FP) PO SCH ×2 (06:11→14:05)
[2023-07-02 07:01] LABS: BASO % 0.8 % (0-2.0); EOS % 2.5 % (0-4.5); HEMATOCRIT 45.3 % (32.4-45.2); HEMOGLOBIN 14.3 GM/dL (10.7-15.3); MCH 29.3 pg (25.7-33.7); MCHC 31.6 g/dl (32.0-36.0); MEAN CELL VOLUME 92.7 fl (80-96); MEAN PLT VOLUME 8.8 fl (7.5-11.1); MONO % 12.8 % (3.8-10.2); NEUT % 52.9 % (42.8-82.8); PLATELET COUNT 152 10^3/uL (134-434); RBC 4.88 M/mm3 (3.60-5.2); RDW 15.4 % (11.6-15.6); WHITE BLOOD COUNT 6.1 K/mm3 (4.0-10.0)
[2023-07-02 07:15] LABS: POTASSIUM 3.9 mmol/L (3.5-5.1)
[2023-07-02 07:21] LABS: ALBUMIN 2.7 g/dl (3.4-5.0); BLOOD UREA NITROGEN 25.3 mg/dL (7-18); CALCIUM 8.4 mg/dL (8.5-10.1)
[2023-07-02 07:24] LABS: CREATININE 0.8 mg/dL (0.55-1.3); PHOSPHOROUS 4.1 mg/dL (2.5-4.9)
[2023-07-02 07:25] LABS: BILIRUBIN,TOTAL 1.1 mg/dL (0.2-1)
[2023-07-02 07:27] LABS: TOT PROT 5.7 g/dl (6.4-8.2)
[2023-07-02] MEDS: APIXABAN 2.5 MG TABLET PO SCH ×2 (10:36→23:10)
[2023-07-02] MEDS: DULoxetine HCL 30 MG CAPSULE.DR PO SCH (10:36)
[2023-07-02] MEDS: ZINC SULFATE 220 MG CAPSULE (FP) PO SCH (10:36)
[2023-07-02] MEDS: POLYETHYLENE GLYCOL (HEALTHYLAX) 3350 17 GM PACKET PO SCH (10:36)
[2023-07-02] MEDS: ASCORBIC ACID 500 MG TABLET (FP) PO SCH ×2 (10:36→23:10)
[2023-07-02] MEDS: MULTIVITAMINS (DAILY MVI) TABLET (FP) PO SCH (10:36)
[2023-07-02] MEDS: AMANTADINE HCL 100 MG TABLET PO SCH (10:37)
[2023-07-02] MEDS: SOLIFENACIN SUCCINATE 5 MG TAB PO SCH (10:38)
[2023-07-02] MEDS: ACETAMINOPHEN 500 MG TABLET (FP) PO PRN (17:19)
[2023-07-03] MEDS: AMANTADINE HCL 100 MG TABLET PO SCH ×3 (00:16→21:06)
[2023-07-03] MEDS: ACETAMINOPHEN 500 MG TABLET (FP) PO PRN ×2 (00:17→18:37)
[2023-07-03] MEDS ORDERED: DOCUSATE SODIUM 100 MG CAPSULE (FP) PO ONE (00:19)
[2023-07-03] MEDS: TORSEMIDE 20 MG TABLET (FP) PO SCH ×2 (05:43→14:15)
[2023-07-03] MEDS: POLYETHYLENE GLYCOL (HEALTHYLAX) 3350 17 GM PACKET PO SCH (09:53)
[2023-07-03] MEDS: DULoxetine HCL 30 MG CAPSULE.DR PO SCH (09:53)
[2023-07-03] MEDS: APIXABAN 2.5 MG TABLET PO SCH ×2 (09:53→21:06)
[2023-07-03] MEDS: ASCORBIC ACID 500 MG TABLET (FP) PO SCH ×2 (09:53→21:06)
[2023-07-03] MEDS: SOLIFENACIN SUCCINATE 5 MG TAB PO SCH (09:53)
[2023-07-03] MEDS: MULTIVITAMINS (DAILY MVI) TABLET (FP) PO SCH (09:54)
[2023-07-03] MEDS: ZINC SULFATE 220 MG CAPSULE (FP) PO SCH (09:54)
[2023-07-03] MEDS ORDERED: MAGNESIUM HYDROX 2400MG/30ML ORAL SUSPENSION 30 ML CUP PO ONE (10:30)
[2023-07-04] MEDS: TORSEMIDE 20 MG TABLET (FP) PO SCH ×2 (05:52→13:59)
[2023-07-04] MEDS: MULTIVITAMINS (DAILY MVI) TABLET (FP) PO SCH (09:59)
[2023-07-04] MEDS: DULoxetine HCL 30 MG CAPSULE.DR PO SCH (09:59)
[2023-07-04] MEDS: ASCORBIC ACID 500 MG TABLET (FP) PO SCH ×2 (10:00→21:01)
[2023-07-04] MEDS: APIXABAN 2.5 MG TABLET PO SCH ×2 (10:01→21:01)
[2023-07-04] MEDS: AMANTADINE HCL 100 MG TABLET PO SCH ×2 (10:01→21:01)
[2023-07-04] MEDS: ZINC SULFATE 220 MG CAPSULE (FP) PO SCH (10:01)
[2023-07-04] MEDS: POLYETHYLENE GLYCOL (HEALTHYLAX) 3350 17 GM PACKET PO SCH (10:01)
[2023-07-04] MEDS: SOLIFENACIN SUCCINATE 5 MG TAB PO SCH (10:02)
[2023-07-04] MEDS: ACETAMINOPHEN 500 MG TABLET (FP) PO PRN (10:52)
[2023-07-05] MEDS: TORSEMIDE 20 MG TABLET (FP) PO SCH ×2 (06:01→15:32)
[2023-07-05 09:16] LABS: POTASSIUM 4.3 mmol/L (3.5-5.1)
[2023-07-05 09:27] LABS: BLOOD UREA NITROGEN 24.6 mg/dL (7-18)
[2023-07-05 09:28] LABS: CALCIUM 8.8 mg/dL (8.5-10.1)
[2023-07-05 09:30] LABS: CREATININE 0.9 mg/dL (0.55-1.3)
[2023-07-05] MEDS: ASCORBIC ACID 500 MG TABLET (FP) PO SCH ×2 (10:49→21:59)
[2023-07-05] MEDS: MULTIVITAMINS (DAILY MVI) TABLET (FP) PO SCH (10:49)
[2023-07-05] MEDS: DULoxetine HCL 30 MG CAPSULE.DR PO SCH (10:49)
[2023-07-05] MEDS: ZINC SULFATE 220 MG CAPSULE (FP) PO SCH (10:50)
[2023-07-05] MEDS: POLYETHYLENE GLYCOL (HEALTHYLAX) 3350 17 GM PACKET PO SCH (10:50)
[2023-07-05] MEDS: APIXABAN 2.5 MG TABLET PO SCH ×2 (10:50→21:59)
[2023-07-05] MEDS: SOLIFENACIN SUCCINATE 5 MG TAB PO SCH (10:51)
[2023-07-05] MEDS: AMANTADINE HCL 100 MG TABLET PO SCH ×2 (12:28→21:59)
[2023-07-06] MEDS: TORSEMIDE 20 MG TABLET (FP) PO SCH ×2 (06:22→13:11)
[2023-07-06 07:57] LABS: HEMATOCRIT 48.6 % (32.4-45.2); HEMOGLOBIN 15.4 GM/dL (10.7-15.3); MCH 29.2 pg (25.7-33.7); MCHC 31.7 g/dl (32.0-36.0); MEAN CELL VOLUME 92.3 fl (80-96); PLATELET COUNT 183 10^3/uL (134-434); RBC 5.27 M/mm3 (3.60-5.2); RDW 15.7 % (11.6-15.6); WHITE BLOOD COUNT 10.4 K/mm3 (4.0-10.0)
[2023-07-06 07:58] LABS: POTASSIUM 3.9 mmol/L (3.5-5.1)
[2023-07-06 08:02] LABS: BLOOD UREA NITROGEN 29.5 mg/dL (7-18); CALCIUM 8.9 mg/dL (8.5-10.1)
[2023-07-06 08:07] LABS: BILIRUBIN,TOTAL 1.1 mg/dL (0.2-1); TOT PROT 6.3 g/dl (6.4-8.2)
[2023-07-06] MEDS: ZINC SULFATE 220 MG CAPSULE (FP) PO SCH (10:04)
[2023-07-06] MEDS: POLYETHYLENE GLYCOL (HEALTHYLAX) 3350 17 GM PACKET PO SCH (10:04)
[2023-07-06] MEDS: DULoxetine HCL 30 MG CAPSULE.DR PO SCH (10:05)
[2023-07-06] MEDS: ASCORBIC ACID 500 MG TABLET (FP) PO SCH ×2 (10:05→22:39)
[2023-07-06] MEDS: AMINO ACIDS/PROTEIN HYDROLYS 30 ML LIQUID.PKT PO SCH (10:05)
[2023-07-06] MEDS: AMANTADINE HCL 100 MG TABLET PO SCH ×2 (10:06→22:39)
[2023-07-06] MEDS: MULTIVITAMINS (DAILY MVI) TABLET (FP) PO SCH (10:06)
[2023-07-06] MEDS: APIXABAN 2.5 MG TABLET PO SCH ×2 (10:06→22:39)
[2023-07-06] MEDS: SOLIFENACIN SUCCINATE 5 MG TAB PO SCH (10:07)
[2023-07-06] MEDS: ACETAMINOPHEN 500 MG TABLET (FP) PO PRN (13:10)
[2023-07-06] MEDS ORDERED: MECLIZINE HCL 12.5 MG TABLET PO ONE (14:15)
[2023-07-07] MEDS: TORSEMIDE 20 MG TABLET (FP) PO SCH ×2 (05:49→15:04)
[2023-07-07 06:42] LABS: BASO % 0.5 % (0-2.0); HEMATOCRIT 49.7 % (32.4-45.2); HEMOGLOBIN 15.7 GM/dL (10.7-15.3); LYMPH % 14.3 % (8-40); MCH 29.2 pg (25.7-33.7); MCHC 31.5 g/dl (32.0-36.0); MEAN CELL VOLUME 92.7 fl (80-96); MEAN PLT VOLUME 8.8 fl (7.5-11.1); MONO % 8.2 % (3.8-10.2); PLATELET COUNT 170 10^3/uL (134-434); RBC 5.37 M/mm3 (3.60-5.2); RDW 15.3 % (11.6-15.6); WHITE BLOOD COUNT 12.4 K/mm3 (4.0-10.0)
[2023-07-07 07:03] LABS: POTASSIUM 3.7 mmol/L (3.5-5.1)
[2023-07-07 07:06] LABS: BLOOD UREA NITROGEN 28.7 mg/dL (7-18); CALCIUM 8.9 mg/dL (8.5-10.1)
[2023-07-07 07:09] LABS: CREATININE 0.9 mg/dL (0.55-1.3)
[2023-07-07] MEDS: ZINC SULFATE 220 MG CAPSULE (FP) PO SCH (09:34)
[2023-07-07] MEDS: APIXABAN 2.5 MG TABLET PO SCH ×2 (09:34→22:24)
[2023-07-07] MEDS: ASCORBIC ACID 500 MG TABLET (FP) PO SCH ×2 (09:34→22:24)
[2023-07-07] MEDS: AMANTADINE HCL 100 MG TABLET PO SCH ×2 (09:34→22:24)
[2023-07-07] MEDS: DULoxetine HCL 30 MG CAPSULE.DR PO SCH (09:34)
[2023-07-07] MEDS: MULTIVITAMINS (DAILY MVI) TABLET (FP) PO SCH (09:34)
[2023-07-07] MEDS: SOLIFENACIN SUCCINATE 5 MG TAB PO SCH (09:34)
[2023-07-07] MEDS: AMINO ACIDS/PROTEIN HYDROLYS 30 ML LIQUID.PKT PO SCH (09:35)
[2023-07-07] MEDS: POLYETHYLENE GLYCOL (HEALTHYLAX) 3350 17 GM PACKET PO SCH (09:35)
[2023-07-08] MEDS: TORSEMIDE 20 MG TABLET (FP) PO SCH ×2 (05:35→13:26)
[2023-07-08 06:26] LABS: CALCIUM 8.9 mg/dL (8.5-10.1)
[2023-07-08 06:27] LABS: BLOOD UREA NITROGEN 27.5 mg/dL (7-18); MAGNESIUM 2.6 mg/dL (1.8-2.4)
[2023-07-08 06:28] LABS: POTASSIUM 3.7 mmol/L (3.5-5.1)
[2023-07-08 06:30] LABS: CREATININE 0.8 mg/dL (0.55-1.3); PHOSPHOROUS 3.8 mg/dL (2.5-4.9)
[2023-07-08 06:39] LABS: HEMATOCRIT 47.8 % (32.4-45.2); HEMOGLOBIN 14.9 GM/dL (10.7-15.3); MCH 28.8 pg (25.7-33.7); MCHC 31.2 g/dl (32.0-36.0); MEAN CELL VOLUME 92.4 fl (80-96); MEAN PLT VOLUME 9.3 fl (7.5-11.1); PLATELET COUNT 188 10^3/uL (134-434); RBC 5.17 M/mm3 (3.60-5.2); RDW 15.7 % (11.6-15.6); WHITE BLOOD COUNT 13.5 K/mm3 (4.0-10.0)
[2023-07-08] MEDS: POLYETHYLENE GLYCOL (HEALTHYLAX) 3350 17 GM PACKET PO SCH (10:39)
[2023-07-08] MEDS: SOLIFENACIN SUCCINATE 5 MG TAB PO SCH (10:40)
[2023-07-08] MEDS: ASCORBIC ACID 500 MG TABLET (FP) PO SCH ×2 (10:40→21:36)
[2023-07-08] MEDS: AMINO ACIDS/PROTEIN HYDROLYS 30 ML LIQUID.PKT PO SCH (10:40)
[2023-07-08] MEDS: DULoxetine HCL 30 MG CAPSULE.DR PO SCH (10:40)
[2023-07-08] MEDS: MULTIVITAMINS (DAILY MVI) TABLET (FP) PO SCH (10:41)
[2023-07-08] MEDS: APIXABAN 2.5 MG TABLET PO SCH ×2 (10:41→21:36)
[2023-07-08] MEDS: AMANTADINE HCL 100 MG TABLET PO SCH ×2 (10:41→21:36)
[2023-07-08] MEDS: ZINC SULFATE 220 MG CAPSULE (FP) PO SCH (10:42)
[2023-07-09] MEDS: TORSEMIDE 20 MG TABLET (FP) PO SCH ×2 (06:32→15:08)
[2023-07-09 08:03] LABS: BASO % 0.5 % (0-2.0); EOS % 1.2 % (0-4.5); HEMOGLOBIN 15.1 GM/dL (10.7-15.3); LYMPH % 13.2 % (8-40); MCH 29.3 pg (25.7-33.7); MCHC 31.6 g/dl (32.0-36.0); MEAN CELL VOLUME 92.7 fl (80-96); MEAN PLT VOLUME 9.5 fl (7.5-11.1); MONO % 11.6 % (3.8-10.2); NEUT % 73.5 % (42.8-82.8); PLATELET COUNT 186 10^3/uL (134-434); RBC 5.17 M/mm3 (3.60-5.2); RDW 15.7 % (11.6-15.6); WHITE BLOOD COUNT 12.7 K/mm3 (4.0-10.0)
[2023-07-09] MEDS: AMINO ACIDS/PROTEIN HYDROLYS 30 ML LIQUID.PKT PO SCH (08:22)
[2023-07-09 08:37] LABS: POTASSIUM 3.6 mmol/L (3.5-5.1)
[2023-07-09 08:39] LABS: CALCIUM 8.9 mg/dL (8.5-10.1)
[2023-07-09 08:40] LABS: BLOOD UREA NITROGEN 28.3 mg/dL (7-18)
[2023-07-09 08:42] LABS: MAGNESIUM 2.4 mg/dL (1.8-2.4)
[2023-07-09 08:43] LABS: CREATININE 0.9 mg/dL (0.55-1.3); PHOSPHOROUS 3.9 mg/dL (2.5-4.9)
[2023-07-09] MEDS: POLYETHYLENE GLYCOL (HEALTHYLAX) 3350 17 GM PACKET PO SCH (09:57)
[2023-07-09] MEDS: DULoxetine HCL 30 MG CAPSULE.DR PO SCH (09:58)
[2023-07-09] MEDS: APIXABAN 2.5 MG TABLET PO SCH ×2 (09:59→21:17)
[2023-07-09] MEDS: AMANTADINE HCL 100 MG TABLET PO SCH ×2 (10:00→21:32)
[2023-07-09] MEDS: ZINC SULFATE 220 MG CAPSULE (FP) PO SCH (10:00)
[2023-07-09] MEDS: ASCORBIC ACID 500 MG TABLET (FP) PO SCH ×2 (10:00→21:17)
[2023-07-09] MEDS: SOLIFENACIN SUCCINATE 5 MG TAB PO SCH (10:01)
[2023-07-09] MEDS: MULTIVITAMINS (DAILY MVI) TABLET (FP) PO SCH (10:01)
[2023-07-09] MEDS: SILVER SULFADIAZINE 1% TOP CREAM 50 GM JAR TP SCH (21:16)
[2023-07-10] MEDS: TORSEMIDE 20 MG TABLET (FP) PO SCH (06:04)
[2023-07-10 06:07] VITALS: PULSE 69
[2023-07-10] MEDS: AMINO ACIDS/PROTEIN HYDROLYS 30 ML LIQUID.PKT PO SCH (08:08)
[2023-07-10 08:51] VITALS: BP 108/66; RESP 18; TEMP 98.4
[2023-07-10] MEDS: POLYETHYLENE GLYCOL (HEALTHYLAX) 3350 17 GM PACKET PO SCH (09:30)
[2023-07-10] MEDS: MULTIVITAMINS (DAILY MVI) TABLET (FP) PO SCH (09:31)
[2023-07-10] MEDS: DULoxetine HCL 30 MG CAPSULE.DR PO SCH (09:31)
[2023-07-10] MEDS: ZINC SULFATE 220 MG CAPSULE (FP) PO SCH (09:31)
[2023-07-10] MEDS: ASCORBIC ACID 500 MG TABLET (FP) PO SCH (09:31)
[2023-07-10] MEDS: SILVER SULFADIAZINE 1% TOP CREAM 50 GM JAR TP SCH (09:31)
[2023-07-10] MEDS: APIXABAN 2.5 MG TABLET PO SCH (09:31)
[2023-07-10] MEDS: SOLIFENACIN SUCCINATE 5 MG TAB PO SCH (09:32)
[2023-07-10] MEDS: AMANTADINE HCL 100 MG TABLET PO SCH (09:36)
== END 2023-07-10 11:42 | DRG 602 ==
LOC: JER 16:11 → JERBED 21:42 → J6S 06-23 05:29 → OBSVTOIN 06-24 10:09 → J4S 06-27 00:10
PROVIDERS: ADMIT Internal Medicine; ATTEND Internal Medicine
DX: L03.116 Cellulitis of left lower limb (principal); I50.23 Acute on chronic systolic (congestive) heart failure; J96.01 Acute respiratory failure with hypoxia; I24.89 Other forms of acute ischemic heart disease; M62.82 Rhabdomyolysis; L03.115 Cellulitis of right lower limb; I27.20 Pulmonary hypertension, unspecified; G35 Multiple sclerosis; F41.9 Anxiety disorder, unspecified; R29.6 Repeated falls; G62.9 Polyneuropathy, unspecified; I27.81 Cor pulmonale (chronic); I87.2 Venous insufficiency (chronic) (peripheral); K59.00 Constipation, unspecified; L89.322 Pressure ulcer of left buttock, stage 2; R42 Dizziness and giddiness; I36.1 Nonrheumatic tricuspid (valve) insufficiency; Z86.718 Personal history of other venous thrombosis and embolism; Z79.01 Long term (current) use of anticoagulants; Z86.711 Personal history of pulmonary embolism
CPT/HCPCS: 0241U-QW; 36415; 36600; 70450-TC; 71045-TC-FY; 71046-TC-FY; 71275-TC; 72125-TC; 72170-TC-FY; 73590-TC-LT-FY; 73700-TC-RT; 80048; 80053; 80076; 81003; 82550; 82553; 82803; 83605; 83690; 83735; 83880; 84100; 84484; 85025; 85027; 86850; 86900; 86901; 87086; 87186; 87635; 93005; 93010; 93970-TC; 97116-GP; 99285-25; G0378; Q9967

== ENCOUNTER 2023-10-13 08:51 | Inpatient (IN) | payer OTHER ==
[2023-10-13] MEDS ORDERED: ACETAMINOPHEN 500 MG TABLET (FP) ONE (09:37)
[2023-10-13] MEDS: ACETAMINOPHEN 500 MG TABLET (FP) PO ONE (09:40)
[2023-10-13 10:43] LABS: EOS % 1.5 % (0-4.5); HEMATOCRIT 57.7 % (32.4-45.2); HEMOGLOBIN 19.4 GM/dL (10.7-15.3); LYMPH % 24.7 % (8-40); MCH 32.2 pg (25.7-33.7); MCHC 33.6 g/dl (32.0-36.0); MEAN CELL VOLUME 95.6 fl (80-96); MEAN PLT VOLUME 8.5 fl (7.5-11.1); MONO % 5.8 % (3.8-10.2); PLATELET COUNT 175 10^3/uL (134-434); RBC 6.04 M/mm3 (3.60-5.2); RDW 14.7 % (11.6-15.6); WHITE BLOOD COUNT 7.7 K/mm3 (4.0-10.0)
[2023-10-13 10:50] LABS: INR 1.23 (0.83-1.09); PROTHROMBIN TIME (PATIENT) 14.2 SEC (9.7-13.0)
[2023-10-13 10:53] LABS: ACTIVATED PTT 37.6 SECONDS (25.2-36.5)
[2023-10-13 11:09] LABS: POTASSIUM 5.2 mmol/L (3.5-5.1)
[2023-10-13 11:11] LABS: BLOOD UREA NITROGEN 27.2 mg/dL (7-18); CALCIUM 10.4 mg/dL (8.5-10.1)
[2023-10-13 11:12] LABS: ALBUMIN 4.2 g/dl (3.4-5.0)
[2023-10-13 11:15] LABS: CREATININE 0.9 mg/dL (0.55-1.3)
[2023-10-13 11:16] LABS: BILIRUBIN,TOTAL 1.4 mg/dL (0.2-1); TOT PROT 7.8 g/dl (6.4-8.2)
[2023-10-13] MEDS: SODIUM CHLORIDE 0.9% 500 ML INFUS.BAG IV ONE (13:18)
[2023-10-13] MEDS ORDERED: METOPROLOL TARTRATE 50 MG TABLET (FP) ONE (16:02)
[2023-10-13] MEDS ORDERED: DULoxetine HCL 30 MG CAPSULE.DR PO ONE (16:03)
[2023-10-13 16:13] LABS: EOS % 2.3 % (0-4.5); HEMATOCRIT 51.9 % (32.4-45.2); HEMOGLOBIN 17.4 GM/dL (10.7-15.3); LYMPH % 38.3 % (8-40); MCH 32.1 pg (25.7-33.7); MCHC 33.5 g/dl (32.0-36.0); MEAN CELL VOLUME 95.8 fl (80-96); MEAN PLT VOLUME 8.4 fl (7.5-11.1); MONO % 8.4 % (3.8-10.2); PLATELET COUNT 161 10^3/uL (134-434); RBC 5.41 M/mm3 (3.60-5.2); RDW 14.7 % (11.6-15.6); WHITE BLOOD COUNT 6.8 K/mm3 (4.0-10.0)
[2023-10-13] MEDS: DULoxetine HCL 30 MG CAPSULE.DR PO SCH (16:14)
[2023-10-13 16:37] LABS: BLOOD UREA NITROGEN 25.3 mg/dL (7-18); CALCIUM 9.3 mg/dL (8.5-10.1)
[2023-10-13 16:40] LABS: CREATININE 0.7 mg/dL (0.55-1.3)
[2023-10-13] MEDS: SOLIFENACIN SUCCINATE 5 MG TAB PO SCH (16:51)
[2023-10-13] MEDS ORDERED: ACETAMINOPHEN 325 MG TABLET (FP) ONE (21:04)
[2023-10-13] MEDS ORDERED: APIXABAN 2.5 MG TABLET ONE (21:04)
[2023-10-13] MEDS ORDERED: HEPARIN NA (PORCINE) 5,000 UNITS/ML 1ML VIAL SQ SCH (22:00)
[2023-10-13] MEDS: APIXABAN 2.5 MG TABLET PO SCH (22:15)
[2023-10-13] MEDS: AMANTADINE HCL 100 MG TABLET PO SCH (22:15)
[2023-10-13] MEDS: ACETAMINOPHEN 325 MG TABLET (FP) PO PRN (22:15)
[2023-10-14] MEDS: TORSEMIDE 20 MG TABLET (FP) PO SCH (06:55)
[2023-10-14] MEDS ORDERED: ACETAMINOPHEN 325 MG TABLET (FP) ONE (10:57)
[2023-10-14] MEDS ORDERED: POLYETHYLENE GLYCOL (HEALTHYLAX) 3350 17 GM PACKET ONE (11:56)
[2023-10-14 12:00] LABS: EPI CELLS 10 /uL (0-25.1); HYALINE CASTS 0 /uL (0-3.1); PH,URINE 5.5 (5.0-8.0); URINE APPEARANCE CLEAR; URINE BACTERIA 151 /uL (0-1359); URINE BILIRUBIN NEGATIVE (NEGATIVE); URINE COLOR YELLOW; URINE GLUCOSE (UA) NEGATIVE (NEGATIVE); URINE KETONE NEGATIVE (NEGATIVE); URINE LEUK ESTERASE 2+ (NEGATIVE); URINE NITRITE NEGATIVE (NEGATIVE); URINE PROTEIN NEGATIVE (NEGATIVE); URINE RBC 6 /uL (0-23.9); URINE UROBILINOGEN 0.2 mg/dL (0.2-1.0); URINE WBC 51 /uL (0-25.8)
[2023-10-14] MEDS: POLYETHYLENE GLYCOL (HEALTHYLAX) 3350 17 GM PACKET PO SCH (12:05)
[2023-10-14] MEDS: D5-1/2NS+10 MEQ KCL - 10 MEQ/1,000 ML INFUS.BAG IV SCH (17:05)
[2023-10-14] MEDS ORDERED: APIXABAN 2.5 MG TABLET ONE (21:45)
[2023-10-15 06:49] LABS: INR 1.37 (0.83-1.09); PROTHROMBIN TIME (PATIENT) 15.8 SEC (9.7-13.0)
[2023-10-15 06:52] LABS: ACTIVATED PTT 41.9 SECONDS (25.2-36.5)
[2023-10-15 06:54] LABS: BASO % 0.5 % (0-2.0); EOS % 2.2 % (0-4.5); HEMATOCRIT 56.4 % (32.4-45.2); HEMOGLOBIN 18.9 GM/dL (10.7-15.3); LYMPH % 28.8 % (8-40); MCH 32.3 pg (25.7-33.7); MCHC 33.5 g/dl (32.0-36.0); MEAN CELL VOLUME 96.4 fl (80-96); MEAN PLT VOLUME 8.9 fl (7.5-11.1); NEUT % 58.5 % (42.8-82.8); PLATELET COUNT 170 10^3/uL (134-434); RBC 5.84 M/mm3 (3.60-5.2); RDW 13.9 % (11.6-15.6); WHITE BLOOD COUNT 7.6 K/mm3 (4.0-10.0)
[2023-10-15 06:55] LABS: POTASSIUM 4.2 mmol/L (3.5-5.1)
[2023-10-15 07:00] LABS: ALBUMIN 3.9 g/dl (3.4-5.0)
[2023-10-15 07:01] LABS: CALCIUM 9.4 mg/dL (8.5-10.1)
[2023-10-15 07:02] LABS: BLOOD UREA NITROGEN 22.8 mg/dL (7-18); MAGNESIUM 1.9 mg/dL (1.8-2.4)
[2023-10-15 07:04] LABS: PHOSPHOROUS 4.2 mg/dL (2.5-4.9)
[2023-10-15 07:05] LABS: CREATININE 0.8 mg/dL (0.55-1.3)
[2023-10-15 07:06] LABS: BILIRUBIN,TOTAL 1.2 mg/dL (0.2-1); TOT PROT 7.5 g/dl (6.4-8.2)
[2023-10-15] MEDS ORDERED: CEFTRIAXONE 1 GM/50 ML BAG ONE (09:40)
[2023-10-15] MEDS ORDERED: DULoxetine HCL 30 MG CAPSULE.DR PO ONE (09:46)
[2023-10-15] MEDS ORDERED: DULoxetine HCL 30 MG CAPSULE.DR PO SCH (10:00)
[2023-10-15] MEDS: DULoxetine HCL 30 MG CAPSULE.DR PO SCH (10:06)
[2023-10-15] MEDS: CEFTRIAXONE 1 GM in DEXTROSE 5%-WATER - 50 ML IVPB SCH (10:06)
[2023-10-15] MEDS: FUROSEMIDE 40 MG TABLET (FP) PO SCH (10:06)
[2023-10-15] MEDS ORDERED: ACETAMINOPHEN INJECTION 100 ML IVPB ONE (11:17)
[2023-10-15] MEDS ORDERED: POLYETHYLENE GLYCOL (HEALTHYLAX) 3350 17 GM PACKET ONE (13:02)
[2023-10-15] MEDS ORDERED: APIXABAN 2.5 MG TABLET ONE (23:17)
[2023-10-16 07:29] LABS: BASO % 0.9 % (0-2.0); EOS % 2.5 % (0-4.5); HEMATOCRIT 52.4 % (32.4-45.2); HEMOGLOBIN 17.3 GM/dL (10.7-15.3); LYMPH % 33.6 % (8-40); MCHC 33.1 g/dl (32.0-36.0); MEAN CELL VOLUME 96.6 fl (80-96); MONO % 11.6 % (3.8-10.2); NEUT % 51.4 % (42.8-82.8); PLATELET COUNT 173 10^3/uL (134-434); RBC 5.42 M/mm3 (3.60-5.2); RDW 14.1 % (11.6-15.6); WHITE BLOOD COUNT 7.5 K/mm3 (4.0-10.0)
[2023-10-16] MEDS ORDERED: ACETAMINOPHEN 325 MG TABLET (FP) ONE (07:34)
[2023-10-16 07:48] LABS: POTASSIUM 4.2 mmol/L (3.5-5.1)
[2023-10-16 07:52] LABS: CALCIUM 9.2 mg/dL (8.5-10.1)
[2023-10-16 07:53] LABS: ALBUMIN 3.3 g/dl (3.4-5.0); BLOOD UREA NITROGEN 20.9 mg/dL (7-18); MAGNESIUM 2.2 mg/dL (1.8-2.4)
[2023-10-16 07:56] LABS: BILIRUBIN,TOTAL 1.1 mg/dL (0.2-1); CREATININE 0.7 mg/dL (0.55-1.3)
[2023-10-16 07:58] LABS: TOT PROT 6.5 g/dl (6.4-8.2)
[2023-10-16] MEDS ORDERED: CEFTRIAXONE 1 GM/50 ML BAG ONE (09:33)
[2023-10-16] MEDS ORDERED: APIXABAN 2.5 MG TABLET ONE (22:03)
[2023-10-17 03:24] VITALS: BMI 22.4
[2023-10-17 08:13] LABS: BASO % 0.6 % (0-2.0); EOS % 4.1 % (0-4.5); HEMATOCRIT 50.2 % (32.4-45.2); HEMOGLOBIN 17.5 GM/dL (10.7-15.3); LYMPH % 34.8 % (8-40); MCH 33.3 pg (25.7-33.7); MCHC 34.9 g/dl (32.0-36.0); MEAN CELL VOLUME 95.4 fl (80-96); MEAN PLT VOLUME 8.7 fl (7.5-11.1); MONO % 14.2 % (3.8-10.2); NEUT % 46.3 % (42.8-82.8); PLATELET COUNT 154 10^3/uL (134-434); RBC 5.26 M/mm3 (3.60-5.2); RDW 13.8 % (11.6-15.6); WHITE BLOOD COUNT 6.6 K/mm3 (4.0-10.0)
[2023-10-17 08:45] LABS: POTASSIUM 4.2 mmol/L (3.5-5.1)
[2023-10-17 08:49] LABS: BLOOD UREA NITROGEN 23.1 mg/dL (7-18); CALCIUM 8.9 mg/dL (8.5-10.1); MAGNESIUM 2.2 mg/dL (1.8-2.4)
[2023-10-17 08:53] LABS: CREATININE 0.7 mg/dL (0.55-1.3)
[2023-10-17 08:54] LABS: TOT PROT 6.2 g/dl (6.4-8.2)
[2023-10-17 08:55] LABS: BILIRUBIN,TOTAL 0.7 mg/dL (0.2-1)
[2023-10-17 10:11] VITALS: RESP 18
[2023-10-18 02:58] VITALS: TEMP 98.2
[2023-10-18 05:57] VITALS: BP 101/60; PULSE 66
[2023-10-18 08:55] LABS: BASO % 0.6 % (0-2.0); EOS % 3.9 % (0-4.5); HEMOGLOBIN 16.7 GM/dL (10.7-15.3); LYMPH % 36.3 % (8-40); MCH 32.4 pg (25.7-33.7); MCHC 34.2 g/dl (32.0-36.0); MEAN CELL VOLUME 94.9 fl (80-96); MONO % 10.8 % (3.8-10.2); NEUT % 48.4 % (42.8-82.8); PLATELET COUNT 166 10^3/uL (134-434); RBC 5.16 M/mm3 (3.60-5.2); RDW 13.5 % (11.6-15.6); WHITE BLOOD COUNT 6.7 K/mm3 (4.0-10.0)
[2023-10-18 09:19] LABS: POTASSIUM 4.4 mmol/L (3.5-5.1)
[2023-10-18 09:33] LABS: MAGNESIUM 2.2 mg/dL (1.8-2.4)
[2023-10-18 09:34] LABS: BLOOD UREA NITROGEN 25.2 mg/dL (7-18)
[2023-10-18 09:36] LABS: CREATININE 0.7 mg/dL (0.55-1.3)
[2023-10-18 09:37] LABS: BILIRUBIN,TOTAL 0.8 mg/dL (0.2-1)
[2023-10-18 11:12] LABS: ALBUMIN % 50.4 % (.); ALPHA-1 FOR UPE 5.3 % (.); TOTAL PROTEIN, URINE 5.2 mg/dL (Not Estab.)
== END 2023-10-18 10:10 | disposition home health service (06) | DRG 59 ==
LOC: JER 08:51 → JERBED 14:47 → OBSVTOIN 10-15 13:13 → J8W 10-17 01:57
PROVIDERS: ADMIT Internal Medicine; ATTEND Nurse Practitioner Acute Care
DX: G35 Multiple sclerosis (principal); L03.115 Cellulitis of right lower limb; L03.116 Cellulitis of left lower limb; N39.0 Urinary tract infection, site not specified; I27.20 Pulmonary hypertension, unspecified; E86.0 Dehydration; I11.0 Hypertensive heart disease with heart failure; I50.810 Right heart failure, unspecified; D75.1 Secondary polycythemia; I07.1 Rheumatic tricuspid insufficiency; R60.0 Localized edema; B96.4 Proteus (mirabilis) (morganii) as the cause of diseases classified elsewhere; E11.51 Type 2 diabetes mellitus with diabetic peripheral angiopathy without gangrene; E11.42 Type 2 diabetes mellitus with diabetic polyneuropathy; R29.6 Repeated falls; W18.30XA Fall on same level, unspecified, initial encounter; Y92.098 Other place in other non-institutional residence as the place of occurrence of the external cause; Y99.9 Unspecified external cause status; Z86.711 Personal history of pulmonary embolism; Z99.81 Dependence on supplemental oxygen
CPT/HCPCS: 0241U-QW; 36415; 70450-TC; 70553-TC; 71045-TC-FY; 72125-TC; 72170-TC-FY; 80048; 80053; 81003; 82550; 82553; 82607; 83036; 83735; 84100; 84155; 84156; 84165; 84166; 84207; 84484; 85025; 85610; 85730; 87086; 93005; 93010; 94761; 97116-GP; 97162-GP; 99285-25; G0378